=== PATIENT | female | born 1955 | race Caucasian/White ===

== ENCOUNTER 2022-11-04 13:26 | Outpatient (CLI) | payer BC, SELFPAY ==
--- NOTE | ~2022-11-04 | US_ITS ---
EXAMINATION: US abdomen complete DATE: 11/04/2022 15:08 INDICATION: Nausea and vomiting TECHNIQUE: Multiple grayscale and Doppler ultrasound images of the abdomen were obtained. COMPARISON: None available FINDINGS: The head and body of the pancreas are normal. The pancreatic tail is obscured by bowel gas. The liver is normal with normal echogenicity and echotexture. No surface nodularity. Normal hepatope wilfredo flow in the main portal vein. The gallbladder is contracted and not well evaluated. The mildly en larged common bile duct measures 8 mm. There was no sonographic Vila sign. The visualized portions of the aorta and inferior vena cava are normal. The spleen measures 9.3 cm. There are old healed granulomas of the spleen. The right kidney measures 12.1 x 6 x 4.4 cm. The left kidney measures 10.5 x 4.7 x 4 cm. The kidneys demonstrate normal parench ymal echogenicity. There is no hydronephrosis. IMPRESSION: 1. Mild enlargement of the common bile duct of unclear etiology. Recommend correlation with liver fun ction tests. Reviewed, dictated and finalized at location B. IMPRESSION: 1. Mild enlargement of the common bile duct of unclear etiology. Recommend rober elation with liver function tests.
--- NOTE | ~2022-11-04 | US_ITS ---
EXAMINATION: US pelvic limited DATE: 11/04/2022 15:48 INDICATION: TECHNIQUE: Multiple transabdominal sonographic images of the pelvis were obtained. COMPARISON: None. FINDINGS: The bladder is normal. No abnormal mass. Jets are seen from both ureters. IMPRESSION: 1. Normal bladder. Reviewed, dictated and finalized at location E. IMPRESSION: 1. Normal bladder.
[2022-11-04 14:19] LABS: Alanine Aminotransferase 46 U/L (6-35); Albumin Level 4.4 g/dL (3.5-5.1); Alkaline Phosphatase 77 U/L (38-126); Amylase 70 U/L (30-110); Anion Gap 6 mmol/L (8-16); Aspartate Amino Transferase 41 U/L (14-36); Bilirubin,Total 0.3 mg/dL (0.2-1.3); Blood Urea Nitrogen 11 mg/dL (7-17); Calcium 9.9 mg/dL (8.4-10.2); Carbon Dioxide 31 mmol/L (22-30); Chloride 101 mmol/L (98-107); Estimated Glomerular Filt Rate > 60; Glucose 108 mg/dL (65-110); Hemoglobin 13.4 g/dL (12.0-15.0); Immature Granulocyte Absolute 0.04 K/mm3 (0.00-0.031); Immature Granulocyte Percent A 0.7 % (0-0.5); Lipase 123 U/L (23-300); Lymphocytes Absolute Auto 1.43 K/mm3 (0.9-3.2); Lymphocytes Percent Auto 24.8 % (18.3-44.2); Mean Corpuscular HGB Conc 33.5 g/dl (32-36); Mean Corpuscular Hemoglobin 30.8 pg (26-34); Mean Platelet Volume 9.6 fl (7.4-10.4); Monocytes Absolute Auto 0.5 K/mm3 (0.1-0.6); Monocytes Percent Auto 8.8 % (2.6-8.5); Neutrophils Absolute Auto 3.8 K/mm3 (1.3-6.7); Neutrophils Percent Auto 65.7 % (45.5-73.1); Platelet Count Result 445 k/mm3 (150-375); Potassium 3.8 mmol/L (3.4-5.0); Red Blood Count 4.35 M/mm3 (4.2-5.4); Red Cell Distribution Width 12.3 % (11.5-14.5); Sodium 138 mmol/L (137-145); White Blood Count 5.8 K/mm3 (4.5-10.0)
[2022-11-04 14:24] LABS: Complement C3 128 mg/dL (88-165)
[2022-11-04 14:39] LABS: Hemoglobin A1C 5.1 % (<5.7)
[2022-11-04 14:49] LABS: Free T4 Free Thyroxine 1.06 ng/mL (0.78-2.19); Vitamin D 25 Hydroxy 44.1 ng/mL
[2022-11-04 15:01] LABS: Erythrocyte Sedimentation Rate 24 mm/hr (0-20)
[2022-11-04 17:08] LABS: Appearance Urine Clear (Clear); Bacteria Urine None Seen /hpf; Bilirubin Urine Negative (Negative); Blood Urine Negative (Negative); Color Urine Yellow (Yellow); Glucose Urine UA Negative (Negative); Ketones Urine Negative (Negative); Leukocyte Esterase Ur Trace LEU/UL (Negative); Need Manual Microscopic Reviewed; Nitrate Urine Negative (Negative); Non Pathogenic Casts 0-2; Protein Urine Negative (Negative); RBC Urine 0-2 /hpf (0-2); Specific Grav Ur 1.005 (1.001-1.035); Squamous Epithelial Cell Urine None seen /hpf (Few); Urobilinogen Urine 0.2 mg/dL (<2.0); WBC Urine 0-5 /hpf; pH Urine 6.5 (5.0-9.0)
[2022-11-04 17:10] LABS: Add Urine Microscopic? YES
[2022-11-06 19:20] LABS: Immunoglobulin A 126 mg/dL (70-320); Immunoglobulin G 680 mg/dL (600-1540); Immunoglobulin M 57 mg/dL (50-300)
[2022-11-07 17:22] LABS: Complement Total CH50 >60 U/mL (31-60)
== END 2022-11-04 13:27 | disposition home or self-care (01) ==
PROVIDERS: PCP Internal Medicine; Visit Provider Internal Medicine
DX: J32.9 Chronic sinusitis, unspecified (principal); J42 Unspecified chronic bronchitis; R50.9 Fever, unspecified; M62.81 Muscle weakness (generalized); R53.83 Other fatigue; Z13.29 Encounter for screening for other suspected endocrine disorder; Z79.899 Other long term (current) drug therapy; R11.2 Nausea with vomiting, unspecified; R19.7 Diarrhea, unspecified; J98.8 Other specified respiratory disorders; E55.9 Vitamin D deficiency, unspecified; Z13.1 Encounter for screening for diabetes mellitus; I10 Essential (primary) hypertension; N17.9 Acute kidney failure, unspecified; R10.9 Unspecified abdominal pain
CPT/HCPCS: 36415; 76700; 76857; 80053; 81001; 82150; 82306; 82784; 83036; 83690; 84439; 84443; 85025; 85652; 86038; 86140; 86160; 86162

== ENCOUNTER → 2022-11-07 07:39 | Outpatient (CLI) | payer BC, SELFPAY ==
--- NOTE | ~2022-11-07 | US_ITS ---
EXAMINATION: US retroperitoneal duplex ltd DATE: 11/07/2022 09:08 INDICATION: Acute kidney injury. Nausea with vomiting, unspecified. TECHNIQUE: Multiple grayscale, color Doppler, and pulsed Doppler images of the kidneys and renal faizan aparna were obtained. COMPARISON: Ultrasound 11/04/2022 FINDINGS: Right kidney measures 12.1 x 5.6 x 5.8 cm. Left kidney measures 9.6 x 4.4 x 5.0 cm. No hydronephrosis . Velocity measurements of the renal arteries are nondiagnostic. IMPRESSION: 1. Normal kidney sizes. No hydronephrosis. 2. Nondiagnostic evaluation of the renal arteries. Reviewed, dictated and finalized at location E.
== END ==
PROVIDERS: PCP Internal Medicine; Visit Provider Internal Medicine
DX: R11.2 Nausea with vomiting, unspecified (principal); N17.9 Acute kidney failure, unspecified; R53.83 Other fatigue
CPT/HCPCS: 93976

== ENCOUNTER 2022-12-03 13:56 | Outpatient (CLI) | payer BC, SELFPAY ==
--- NOTE | ~2022-12-03 | NM_ITS ---
EXAMINATION: NM hepatobiliary wo pharm DATE: 12/03/2022 16:18 INDICATION: Other specified diseases of gallbladder. COMPARISON: Ultrasound 11/04/2022 TECHNIQUE: 4.9 mCi Tc-99m mebrofenin (Choletec) was administered intravenously. Scintigraphic images of the abdomen were obtained for one hour. Then, the patient drank 8 oz Ensure, and imaging was cont inued for 60 minutes. FINDINGS: There is normal clearance of radiotracer from the blood pool. There is homogeneous tracer u ptake by the liver. Activity progresses to the bowel and gallbladder. Gallbladder ejection fraction (GBEF) was 49%. Note that with this technique, normal GBEF >= 33%. IMPRESSION: 1. Normal hepatobiliary scintigraphy. Reviewed, dictated and finalized at location A.
== END 2022-12-03 13:57 | disposition home or self-care (01) ==
LOC: ANHIMG 14:00
PROVIDERS: PCP Internal Medicine; Visit Provider Internal Medicine
DX: K82.8 Other specified diseases of gallbladder (principal); R11.2 Nausea with vomiting, unspecified
CPT/HCPCS: 78226; A9537

== ENCOUNTER 2022-12-08 14:40 | Outpatient (CLI) | payer BC, SELFPAY ==
--- NOTE | ~2022-12-08 | MR_ITS ---
EXAMINATION: MR MRCP wo/w con/w 3D wo ind DATE: 12/08/2022 16:19 INDICATION: Nausea with vomiting, unspecified. TECHNIQUE: Magnetic resonance imaging (MRI) of the abdomen was performed without and with 15 mL Multi Rufino intravenous contrast. Sequences included coronal T2-weighted FS FSE, coronal T2-weighted FSE, a xial T1-weighted LAVA, coronal FS FIESTA, axial dual-echo T1-weighted SPGR, coronal lava-FLEX, sagitt al T2-weighted FSE, axial T2-weighted FSE, and axial DWI. Thick-slab T2-weighted FSE images were obta ined for magnetic resonance cholangiopancreatography (MRCP). Maximum intensity projection 3-D reconst ructions of the volumetric data were created by the technologist. Postcontrast sequences included cor onal LAVA-flex and time course of axial T1-weighted LAVA. COMPARISON: Abdomen ultrasound 11/04/2022 FINDINGS: ABDOMEN MRI: Breast implants are noted. There is marked elevation of right hemidiaphragm. There is cy stic thickening of the fundus of the gallbladder, consistent with adenomyomatosis. There is sludge in the gallbladder. The liver, spleen, pancreas, adrenal glands, and kidneys are normal. There are no d ilated loops of bowel. There is a small sliding hiatal hernia. There is no ascites. There are no path ologically enlarged lymph nodes. ABDOMEN MRCP: The common duct is normal and measures 6 mm. No choledocholithiasis. IMPRESSION: 1. Small sliding hiatal hernia. Reviewed, dictated and finalized at location A.
== END 2022-12-08 14:41 | disposition home or self-care (01) ==
PROVIDERS: PCP Internal Medicine; Visit Provider Internal Medicine
DX: R11.2 Nausea with vomiting, unspecified (principal); K44.9 Diaphragmatic hernia without obstruction or gangrene
CPT/HCPCS: 74183; 76376; A9577

== ENCOUNTER 2023-03-04 15:48 | Outpatient (CLI) | payer BC, SELFPAY ==
--- NOTE | ~2023-03-04 | XR_ITS ---
EXAMINATION: XR chest 2V DATE: 03/04/2023 16:18 INDICATION: Cough. Shortness of breath. Chest pain. TECHNIQUE: Frontal and lateral views of the chest were obtained. COMPARISON: None. FINDINGS: There is marked elevation of right hemidiaphragm. There are airspace opacities at right jose g base, likely atelectasis. No pleural effusion or pneumothorax. The heart size is normal. There is a n electronic implant in left anterior chest wall. Breast implants are noted. There are old healed lef t rib fractures. IMPRESSION: 1. Marked elevation of right hemidiaphragm with mild atelectasis at right lung base. Reviewed, dictated and finalized at location E. DRY TECH
[2023-03-04 17:01] LABS: Basophils Percent Auto 0.2 % (0.2-1.2); Hematocrit 36.7 % (37.0-47.0); Hemoglobin 11.6 g/dL (12.0-15.0); Immature Granulocyte Absolute 0.01 K/mm3 (0.00-0.031); Immature Granulocyte Percent A 0.2 % (0-0.5); Lymphocytes Absolute Auto 1.19 K/mm3 (0.9-3.2); Lymphocytes Percent Auto 21.2 % (18.3-44.2); Mean Corpuscular HGB Conc 31.6 g/dl (32-36); Mean Corpuscular Hemoglobin 28.8 pg (26-34); Mean Corpuscular Volume 91.1 fl (80-100); Mean Platelet Volume 10.6 fl (7.4-10.4); Monocytes Absolute Auto 0.5 K/mm3 (0.1-0.6); Neutrophils Percent Auto 70.4 % (45.5-73.1); Platelet Count Result 316 k/mm3 (150-375); Red Blood Count 4.03 M/mm3 (4.2-5.4); White Blood Count 5.6 K/mm3 (4.5-10.0)
[2023-03-04 17:05] LABS: Anion Gap 9 mmol/L (8-16); Blood Urea Nitrogen 11 mg/dL (7-17); Calcium 9.9 mg/dL (8.4-10.2); Carbon Dioxide 25 mmol/L (22-30); Chloride 104 mmol/L (98-107); Estimated Glomerular Filt Rate > 60; Glucose 86 mg/dL (65-110); Potassium 3.4 mmol/L (3.4-5.0); Sodium 138 mmol/L (137-145)
[2023-03-11 01:33] LABS: S. pneumonia Serotype 12 (12F) 1.4; S. pneumonia Serotype 14 (14) 17.8; S. pneumonia Serotype 17 (17F) 10.6; S. pneumonia Serotype 18C (56) 3.3; S. pneumonia Serotype 19 (19F) 4.9; S. pneumonia Serotype 2 (2) 0.7; S. pneumonia Serotype 20 (20) 11.6; S. pneumonia Serotype 22 (22F) 1.9; S. pneumonia Serotype 23 (23F) 0.8; S. pneumonia Serotype 3 (3) 3.6; S. pneumonia Serotype 34 (10A) 3.6; S. pneumonia Serotype 4 (4) 0.7; S. pneumonia Serotype 43 (11A) 1.5; S. pneumonia Serotype 5 (5) 6.5; S. pneumonia Serotype 51 (7F) 2.8; S. pneumonia Serotype 57 (19A) 3.4; S. pneumonia Serotype 68 (9V) 3.1; S. pneumonia Serotype 6B (26) 2.2; S. pneumonia Serotype 70 (33F) 2.7; S. pneumonia Serotype 8 (8) 1.1; S. pneumonia Serotype 9 (9N) 2.6
== END 2023-03-04 15:49 | disposition home or self-care (01) ==
PROVIDERS: PCP Internal Medicine; Visit Provider Internal Medicine Nephrology
DX: D80.1 Nonfamilial hypogammaglobulinemia (principal); R05.9 Cough, unspecified; J18.9 Pneumonia, unspecified organism; Z86.16 Personal history of COVID-19; D80.2 Selective deficiency of immunoglobulin A [IgA]; D80.3 Selective deficiency of immunoglobulin G [IgG] subclasses; D80.4 Selective deficiency of immunoglobulin M [IgM]; J06.9 Acute upper respiratory infection, unspecified
CPT/HCPCS: 36415; 71046; 80048; 85025; 86317

== ENCOUNTER 2023-06-16 09:43 | Outpatient (CLI) | payer BC, SELFPAY ==
[2023-06-16 10:13] LABS: Hematocrit 36.4 % (37.0-47.0); Hemoglobin 11.9 g/dL (12.0-15.0); Mean Corpuscular HGB Conc 32.7 g/dl (32-36); Mean Corpuscular Hemoglobin 29.8 pg (26-34); Mean Corpuscular Volume 91.2 fl (80-100); Mean Platelet Volume 9.8 fl (7.4-10.4); Platelet Count Result 373 k/mm3 (150-375); Red Blood Count 3.99 M/mm3 (4.2-5.4); Red Cell Distribution Width 12.3 % (11.5-14.5); White Blood Count 6.7 K/mm3 (4.5-10.0)
[2023-06-16 10:17] LABS: Appearance Urine Clear (Clear); Bacteria Urine Rare /hpf; Bilirubin Urine Negative (Negative); Blood Urine Negative (Negative); Color Urine Yellow (Yellow); Glucose Urine UA Negative (Negative); Ketones Urine Negative (Negative); Leukocyte Esterase Ur 2+ LEU/UL (NEGATIVE); Nitrate Urine Negative (Negative); Non Pathogenic Casts 0-2; Protein Urine Negative (Negative); RBC Urine 0-2 /hpf (0-2); Specific Grav Ur 1.018 (1.001-1.035); Squamous Epithelial Cell Urine None seen /hpf (Few); Urobilinogen Urine 0.2 mg/dL (<2.0); WBC Urine 51-100 /hpf (0-3); pH Urine 5.5 (5.0-9.0)
[2023-06-16 10:24] LABS: Albumin Level 4.3 g/dL (3.5-5.1); Anion Gap 8 mmol/L (8-16); Blood Urea Nitrogen 18 mg/dL (7-17); Calcium 9.9 mg/dL (8.4-10.2); Carbon Dioxide 25 mmol/L (22-30); Chloride 105 mmol/L (98-107); Creatine Kinase 61 U/L (30-135); Estimated Glomerular Filt Rate > 60; Glucose 102 mg/dL (65-110); Phosphorus 4.3 mg/dL (2.5-4.5); Potassium 3.6 mmol/L (3.4-5.0); Sodium 138 mmol/L (137-145)
[2023-06-16 10:25] LABS: Add Urine Microscopic? YES
[2023-06-16 10:33] LABS: Creatinine Urine 100.7 mg/dL; Total Protein Urine Random 8 mg/dL; Ur Ttl Prot Creatinine Ratio 0.08 mg/mg (0-0.20)
[2023-06-16 10:37] LABS: Erythrocyte Sedimentation Rate 24 mm/hr (0-20)
[2023-06-16 10:47] LABS: Complement C3 119 mg/dL (88-165); Rheumatoid Factor < 12.0 IU/ML (<12)
[2023-06-16 11:01] LABS: Cortisol Random 5.66 ug/dL
[2023-06-18 10:58] LABS: Kappa\\Lambda Light Chains 0.81 (0.26-1.65); Lambda Light Chain 12.6 mg/L (5.7-26.3)
[2023-06-18 14:18] LABS: ANCA Screen Negative (Negative)
[2023-06-19 10:58] LABS: Anti Glomerular Basement Memb <1.0 AI (<1.0)
[2023-06-19 16:48] LABS: Complement Total CH50 63 U/mL (31-60)
[2023-06-21 08:40] LABS: SM Antibody <1.0; SM/RNP Antibody <1.0; SS-A <1.0; SS-B <1.0
== END 2023-06-16 09:44 | disposition home or self-care (01) ==
LOC: ANHLAB 09:45
PROVIDERS: PCP Internal Medicine; Visit Provider Internal Medicine Nephrology
DX: N17.9 Acute kidney failure, unspecified (principal); R53.83 Other fatigue; R11.2 Nausea with vomiting, unspecified; R19.7 Diarrhea, unspecified
CPT/HCPCS: 36415; 80069; 81001; 82533; 82550; 82570; 83520; 83883; 84156; 85027; 85652; 86036; 86038; 86160; 86162; 86225; 86235; 86430

== ENCOUNTER 2023-06-18 11:49 | Outpatient (CLI) | payer BC, SELFPAY ==
[2023-06-22 12:31] LABS: Creat 24 Hr 1.17 g/24 h (0.50-2.15); Pro/Creat Ratio 102 mg/g creat (<150); Pro/Creat Ratio mg/mg 0.102 (<0.150); Protein,total, 24 Hr Ur 120 mg/24 h (<150)
== END 2023-06-18 11:50 | disposition home or self-care (01) ==
LOC: ANHLAB 11:52
PROVIDERS: PCP Internal Medicine; Visit Provider Internal Medicine Nephrology
DX: N17.9 Acute kidney failure, unspecified (principal); R53.83 Other fatigue; R11.2 Nausea with vomiting, unspecified; R19.7 Diarrhea, unspecified
CPT/HCPCS: 86335

== ENCOUNTER 2023-07-01 15:41 | Outpatient (CLI) | payer BC, SELFPAY ==
[2023-07-01 16:20] LABS: Basophils Percent Auto 0.3 % (0.2-1.2); Eosinophils Percent Auto 0.6 % (0-4.4); Hematocrit 38.3 % (37.0-47.0); Hemoglobin 12.8 g/dL (12.0-15.0); Immature Granulocyte Absolute 0.01 K/mm3 (0.00-0.031); Immature Granulocyte Percent A 0.1 % (0-0.5); Lymphocytes Absolute Auto 1.44 K/mm3 (0.9-3.2); Lymphocytes Percent Auto 21.1 % (18.3-44.2); Mean Corpuscular HGB Conc 33.4 g/dl (32-36); Mean Corpuscular Hemoglobin 30.4 pg (26-34); Mean Platelet Volume 9.8 fl (7.4-10.4); Monocytes Absolute Auto 0.6 K/mm3 (0.1-0.6); Monocytes Percent Auto 9.1 % (2.6-8.5); Neutrophils Absolute Auto 4.7 K/mm3 (1.3-6.7); Neutrophils Percent Auto 68.8 % (45.5-73.1); Platelet Count Result 375 k/mm3 (150-375); Red Blood Count 4.21 M/mm3 (4.2-5.4); Red Cell Distribution Width 12.5 % (11.5-14.5); White Blood Count 6.8 K/mm3 (4.5-10.0)
[2023-07-01 16:50] LABS: Erythrocyte Sedimentation Rate 29 mm/hr (0-20)
[2023-07-01 18:49] LABS: Iron 48 ug/dL (37-170)
[2023-07-01 18:51] LABS: Alanine Aminotransferase 34 U/L (6-35); Albumin Level 4.3 g/dL (3.5-5.1); Alkaline Phosphatase 79 U/L (38-126); Anion Gap 8 mmol/L (8-16); Aspartate Amino Transferase 37 U/L (14-36); Bilirubin,Total 0.3 mg/dL (0.2-1.3); Blood Urea Nitrogen 19 mg/dL (7-17); CRP 0.6 mg/dL (<1.0); Calcium 10.1 mg/dL (8.4-10.2); Carbon Dioxide 29 mmol/L (22-30); Chloride 100 mmol/L (98-107); Estimated Glomerular Filt Rate > 60; Glucose 98 mg/dL (65-110); Potassium 3.5 mmol/L (3.4-5.0); Sodium 137 mmol/L (137-145)
[2023-07-01 19:01] LABS: Percent Iron Saturation 13 % (20-50)
[2023-07-01 19:09] LABS: Free T4 Free Thyroxine 1.11 ng/mL (0.78-2.19)
[2023-07-01 20:08] LABS: Folic Acid > 20.0 ng/mL (2.76->20)
[2023-07-05 08:59] LABS: GGT 15 U/L (3-65)
== END 2023-07-01 15:42 | disposition home or self-care (01) ==
LOC: ANHLAB 15:43
PROVIDERS: PCP Internal Medicine; Visit Provider Internal Medicine
DX: R53.83 Other fatigue (principal)
CPT/HCPCS: 36415; 80053; 82607; 82728; 82746; 82977; 83540; 83550; 84439; 84443; 85025; 85652; 86140

== ENCOUNTER 2023-07-14 16:16 | Outpatient (CLI) | payer BC, SELFPAY ==
[2023-07-14 16:56] LABS: Add Urine Microscopic? YES; Appearance Urine Clear (Clear); Bacteria Urine None Seen /hpf; Bilirubin Urine Negative (Negative); Blood Urine Negative (Negative); Color Urine Yellow (Yellow); Glucose Urine UA Negative (Negative); Ketones Urine Negative (Negative); Leukocyte Esterase Ur 1+ LEU/UL (Negative); Need Manual Microscopic Reviewed; Nitrate Urine Negative (Negative); Non Pathogenic Casts 0-2; Protein Urine Negative (Negative); RBC Urine 0-2 /hpf (0-2); Specific Grav Ur 1.016 (1.001-1.035); Squamous Epithelial Cell Urine None Seen /hpf (Few); Urobilinogen Urine 0.2 mg/dL (<2.0); WBC Urine 0-5 /hpf (0-3); pH Urine 5.5 (5.0-9.0)
[2023-07-14 17:08] LABS: Creatinine Urine 68.7 mg/dL; Total Protein Urine Random 9 mg/dL; Ur Ttl Prot Creatinine Ratio 0.13 mg/mg (0-0.20)
== END 2023-07-14 16:17 | disposition home or self-care (01) ==
LOC: ANHLAB 16:17
PROVIDERS: PCP Internal Medicine; Visit Provider Internal Medicine Nephrology
DX: R82.81 Pyuria (principal)
CPT/HCPCS: 82570; 84156; 87077; 87086; 87088; 87186

== ENCOUNTER 2023-08-17 07:51 | Outpatient (CLI) | payer BC, SELFPAY ==
--- NOTE | ~2023-08-17 | XR_ITS ---
XR chest 2V 08/17/2023 09:16 Indication: Chest pain Procedure: 2 view chest Comparison: 03/04/2023 Findings: Chronic elevation the right diaphragm with right basilar atelectasis. No acute focal pneumo monet, edema, pleural effusion or pneumothorax. There is asymmetric density in the right apex. Correlat ion with chest CT recommended to exclude underlying parenchymal abnormality. Impression: 1: New asymmetry of the right apex. Correlation with CT chest recommended. Reviewed, dictated and finalized at location B. Impression: 1: New asymmetry of the right apex. Correlation with CT chest recommended.
[2023-08-17 08:45] LABS: Influenza A QL RT-PCR Negative (Negative); Influenza B QL RT-PCR Negative (Negative); RSV RNA, RT-PCR Negative (Negative); SARS-CoV-2 RNA PCR Negative (Negative)
[2023-08-17 08:54] LABS: Basophils Percent Auto 0.2 % (0.2-1.2); Eosinophils Percent Auto 0.1 % (0-4.4); Hematocrit 40.6 % (37.0-47.0); Hemoglobin 13.2 g/dL (12.0-15.0); Immature Granulocyte Absolute 0.04 K/mm3 (0.00-0.031); Immature Granulocyte Percent A 0.3 % (0-0.5); Lymphocytes Absolute Auto 1.44 K/mm3 (0.9-3.2); Lymphocytes Percent Auto 11.3 % (18.3-44.2); Mean Corpuscular HGB Conc 32.5 g/dl (32-36); Mean Corpuscular Volume 92.3 fl (80-100); Mean Platelet Volume 10.4 fl (7.4-10.4); Monocytes Absolute Auto 0.9 K/mm3 (0.1-0.6); Monocytes Percent Auto 6.7 % (2.6-8.5); Neutrophils Absolute Auto 10.4 K/mm3 (1.3-6.7); Neutrophils Percent Auto 81.4 % (45.5-73.1); Platelet Count Result 361 k/mm3 (150-375); Red Cell Distribution Width 13.1 % (11.5-14.5); White Blood Count 12.8 K/mm3 (4.5-10.0)
== END 2023-08-17 07:52 | disposition home or self-care (01) ==
LOC: ANHLAB 07:53
PROVIDERS: PCP Internal Medicine; Visit Provider Internal Medicine
DX: R50.9 Fever, unspecified (principal); R05.9 Cough, unspecified
CPT/HCPCS: 36415; 71046; 85025; 87637

== ENCOUNTER 2023-08-17 14:52 | Outpatient (CLI) | payer BC, SELFPAY ==
--- NOTE | ~2023-08-17 | CT_ITS ---
EXAMINATION: CT diagnostic chest w con DATE: 08/17/2023 15:27 INDICATION: R93.89 - Abnormal findings on diagnostic imaging of other... TECHNIQUE: Computed tomography (CT) of the chest was performed with 100 mL Omnipaque-350 intravenous contrast. Additional 3D reconstructions utilizing coronal maximum intensity projection (MIP) were per formed. Automated exposure control and iterative reconstruction technique were employed. The dose-maik gth product was 263.40 mGy-cm. COMPARISON: Radiograph dated 08/17/2023 FINDINGS: Patchy region of consolidation and groundglass opacity at the posterior aspect of the apical segment of the right upper lobe without evident mass or architectural distortion which is suspicious for pneu monia. There is both basilar atelectasis along the elevated right hemidiaphragm as well as discoid at electasis in the anterior basilar segment of the right lower lobe. Calcified nodules within the right lower lobar basilar atelectasis along with calcified right hilar and mediastinal lymph nodes and a f ew splenic calcifications, all consistent with old granulomatous disease. Left lung remains clear. No pulmonary edema, pleural effusion or pneumothorax. Heart size is normal. Small amount of atheroscler otic coronary artery calcification. Dense mitral annular calcification. No pericardial effusion. Thor acic aorta is normal in caliber with no dissection. No pathologically enlarged thoracic lymphadenopat hy. Bilateral breast implants. Linear metallic implant in the subcutaneous fat at the upper outer luiz drant of the left breast. Small sliding-type hiatal hernia. Moderate thoracic and severe lower cervic al spondylosis. There are a couple subacute healing nondisplaced fractures of the lateral left eighth and ninth ribs. IMPRESSION: 1. Patchy groundglass opacity and consolidation at the apical segment of the right upper lobe consist ent with pneumonia. 2. Elevation the right hemidiaphragm with right basilar and lower lobe atelectasis. 2. Small sliding-type hiatal hernia. 4. Subacute healing nondisplaced lateral left eighth and ninth rib fractures. Reviewed, dictated and finalized at location A. IMPRESSION: 1. Patchy groundglass opacity and consolidation at the apical segment of the ri ght upper lobe consistent with pneumonia. 2. Elevation the right hemidiaphragm with right basilar and lower lobe atelecta sis. 2. Small sliding-type hiatal hernia. 4. Subacute healing nondisplaced lateral left eighth and ninth rib fractures.
[2023-08-17 15:26] LABS: Estimated Glomerular Filt Rate > 60
== END 2023-08-17 14:53 | disposition home or self-care (01) ==
PROVIDERS: PCP Internal Medicine; Visit Provider Internal Medicine
DX: R50.9 Fever, unspecified (principal); R93.89 Abnormal findings on diagnostic imaging of other specified body structures; K44.9 Diaphragmatic hernia without obstruction or gangrene
CPT/HCPCS: 36415; 71046; 71260; 85025; 87637; Q9967

== ENCOUNTER 2023-11-12 14:39 | Outpatient (CLI) | payer BC, SELFPAY ==
[2023-11-12 15:01] LABS: Basophils Percent Auto 0.5 % (0.2-1.2); Eosinophils Percent Auto 0.2 % (0-4.4); Immature Granulocyte Absolute 0.02 K/mm3 (0.00-0.031); Immature Granulocyte Percent A 0.3 % (0-0.5); Lymphocytes Absolute Auto 1.58 K/mm3 (0.9-3.2); Mean Corpuscular HGB Conc 34.1 g/dl (32-36); Mean Corpuscular Hemoglobin 30.9 pg (26-34); Mean Corpuscular Volume 90.5 fl (80-100); Monocytes Absolute Auto 0.6 K/mm3 (0.1-0.6); Monocytes Percent Auto 9.7 % (2.6-8.5); Neutrophils Absolute Auto 4.3 K/mm3 (1.3-6.7); Neutrophils Percent Auto 65.3 % (45.5-73.1); Platelet Count Result 341 k/mm3 (150-375); Red Blood Count 4.53 M/mm3 (4.2-5.4); Red Cell Distribution Width 13.2 % (11.5-14.5); White Blood Count 6.6 K/mm3 (4.5-10.0)
[2023-11-12 15:11] LABS: Alanine Aminotransferase 42 U/L (6-35); Albumin Level 4.8 g/dL (3.5-5.1); Alkaline Phosphatase 73 U/L (38-126); Anion Gap 12 mmol/L (4-12); Aspartate Amino Transferase 41 U/L (14-36); Bilirubin,Total 0.6 mg/dL (0.2-1.3); Blood Urea Nitrogen 14 mg/dL (7-17); Calcium 10.4 mg/dL (8.4-10.2); Carbon Dioxide 25 mmol/L (22-30); Chloride 99 mmol/L (98-107); Cholesterol 157 mg/dL (0-200); Estimated Glomerular Filt Rate 55; Glucose 88 mg/dL (65-110); HDL Direct 68 mg/dL; Magnesium 1.9 mg/dL (1.6-2.3); Sodium 136 mmol/L (137-145); Triglycerides 98 mg/dL (<150)
[2023-11-12 15:22] LABS: LDL Cholesterol Direct 64 mg/dL
[2023-11-12 15:33] LABS: Hemoglobin A1C 5.3 % (<5.7)
[2023-11-12 15:55] LABS: Free T4 Free Thyroxine 1.44 ng/mL (0.78-2.19)
== END 2023-11-12 14:40 | disposition home or self-care (01) ==
PROVIDERS: PCP Internal Medicine; Visit Provider Internal Medicine
DX: I10 Essential (primary) hypertension (principal); Z13.220 Encounter for screening for lipoid disorders; Z79.899 Other long term (current) drug therapy; Z13.1 Encounter for screening for diabetes mellitus; Z13.29 Encounter for screening for other suspected endocrine disorder; E87.6 Hypokalemia
CPT/HCPCS: 36415; 80053; 80061; 83036; 83735; 84439; 84443; 85025

== ENCOUNTER 2024-03-13 08:03 | Outpatient (CLI) | payer MEDICARE, SELFPAY ==
--- NOTE | ~2024-03-13 | CT_ITS ---
EXAMINATION: CT abdomen pelvis w con DATE: 03/13/2024 08:59 INDICATION: Nausea and vomiting. TECHNIQUE: Computed tomography (CT) of the abdomen and pelvis was performed with 100 mL Omnipaque 350 intravenous contrast. Automated exposure control and iterative reconstruction technique were employe d. The dose-length product was 799.65 mGy-cm. COMPARISON: Chest CT 08/17/2023, abdomen MRI 12/08/2022 FINDINGS: There is elevation of right hemidiaphragm. There is mild atelectasis in the lungs bilateral ly. Calcified right lung nodules and calcified right hilar and mediastinal lymph nodes are consistent with old granulomatous disease. No pleural effusion. There are bilateral breast implants. There is l eft atrial enlargement. There are coronary artery calcifications. No pericardial effusion. There is a moderate-sized sliding hiatal hernia. Calcifications in the liver and spleen are consistent with old granulomatous disease. The gallbladder, pancreas, and adrenal glands are normal. There is cortical t hinning of the kidneys. There are no dilated loops of bowel. The appendix is normal. There are no pat hologically enlarged lymph nodes. There is no free intraperitoneal fluid. There are old healed left r ib fractures. There is moderate thoracic spondylosis and severe lumbar spondylosis. IMPRESSION: 1. Moderate-sized sliding hiatal hernia. Reviewed, dictated and finalized at location A. 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
[2024-03-13 08:42] LABS: Estimated Glomerular Filt Rate 55
== END 2024-03-13 08:04 | disposition home or self-care (01) ==
PROVIDERS: PCP Internal Medicine; Visit Provider Internal Medicine
DX: R11.2 Nausea with vomiting, unspecified (principal); K59.00 Constipation, unspecified; R10.9 Unspecified abdominal pain; K44.9 Diaphragmatic hernia without obstruction or gangrene
CPT/HCPCS: 74177; Q9967

== ENCOUNTER 2024-04-06 08:22 | Outpatient (CLI) | payer MEDICARE, SELFPAY ==
--- NOTE | ~2024-04-06 | MM_ITS ---
EXAMINATION: MM scrn jose d implant BI w alondra HISTORY: Screening mammogram TECHNIQUE: Craniocaudal and mediolateral oblique 3-D tomosynthesis images with implant displacement a nd synthetic 2-D images were generated. Craniocaudal and mediolateral oblique views of the breasts wi thout implant displacement were obtained using full field digital mammography. CAD analysis was submi tted and interpreted. COMPARISON: No prior mammogram is available for comparison at this institution. BREAST PARENCHYMAL COMPOSITION: Dense: The breasts are heterogeneously dense, which may obscure small masses FINDINGS: There are nodular asymmetries centered in the upper outer quadrant of the left breast. No m ammographic evidence for malignancy in the right breast. IMPRESSION: 1. Nodular left breast asymmetries in the upper outer quadrant. 2. Additional mammographic views and possible breast ultrasound are recommended. BI-RADS Category 0: Incomplete: Needs additional imaging evaluation. Reviewed, dictated and finalized at location B. 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 Nodular left breast asymmetries in the upper outer quadrant. 2. Additional mammographic views and possible breast ultrasound are recommended . BI-RADS Category 0: Incomplete: Needs additional imaging evaluation.
== END 2024-04-06 08:23 | disposition home or self-care (01) ==
PROVIDERS: PCP Internal Medicine; Visit Provider Internal Medicine
DX: Z12.31 Encounter for screening mammogram for malignant neoplasm of breast (principal); R92.8 Other abnormal and inconclusive findings on diagnostic imaging of breast
CPT/HCPCS: 77063; 77067

== ENCOUNTER 2024-04-24 10:51 | Outpatient (CLI) | payer MEDICARE, SELFPAY ==
--- NOTE | ~2024-04-24 | MM_ITS ---
EXAMINATION: MM diag jose d implant LT w alondra HISTORY: Nodular asymmetry left breast TECHNIQUE: Additional 3-D tomosynthesis images of the left breast were performed and synthetic 2-D im ages were generated. CAD analysis was submitted and interpreted. COMPARISON: 04/06/2024 BREAST PARENCHYMAL COMPOSITION:Dense: The breasts are heterogeneously dense, which may obscure small masses. FINDINGS: Nodular asymmetries efface with spot compression. No definite persistent mass lesion or dis tortion seen. No suspicious microcalcification. IMPRESSION: No mammographic evidence for malignancy. BI-RADS Category 1: Negative Reviewed, dictated and finalized at location . RY CELLAR HAND
== END 2024-04-24 10:52 | disposition home or self-care (01) ==
PROVIDERS: PCP Internal Medicine; Visit Provider Internal Medicine
DX: R92.8 Other abnormal and inconclusive findings on diagnostic imaging of breast (principal)
CPT/HCPCS: 77061; 77065; G0279

== ENCOUNTER 2024-05-18 08:19 | Outpatient (CLI) | payer MEDICARE, SELFPAY ==
[2024-05-18 08:56] LABS: Basophils Percent Auto 0.2 % (0.2-1.2); Eosinophils Percent Auto 0.8 % (0-4.4); Hemoglobin 12.3 g/dL (12.0-15.0); Immature Granulocyte Absolute 0.02 K/mm3 (0.00-0.031); Immature Granulocyte Percent A 0.4 % (0-0.5); Lymphocytes Absolute Auto 1.18 K/mm3 (0.9-3.2); Mean Corpuscular HGB Conc 34.2 g/dl (32-36); Mean Corpuscular Hemoglobin 32.1 pg (26-34); Mean Platelet Volume 10.4 fl (7.4-10.4); Monocytes Absolute Auto 0.4 K/mm3 (0.1-0.6); Monocytes Percent Auto 9.3 % (2.6-8.5); Neutrophils Percent Auto 64.3 % (45.5-73.1); Platelet Count Result 289 k/mm3 (150-375); Red Blood Count 3.83 M/mm3 (4.2-5.4); Red Cell Distribution Width 12.4 % (11.5-14.5); White Blood Count 4.7 K/mm3 (4.5-10.0)
[2024-05-18 09:00] LABS: Add Urine Microscopic? YES; Appearance Urine Clear (Clear); Bacteria Urine None Seen /hpf; Bilirubin Urine Negative (Negative); Blood Urine Negative (Negative); Color Urine Yellow (Yellow); Glucose Urine UA Negative (Negative); Ketones Urine Negative (Negative); Leukocyte Esterase Ur Trace LEU/UL (Negative); Nitrate Urine Negative (Negative); Non Pathogenic Casts 0-2; Protein Urine Negative (Negative); RBC Urine 0-2 /hpf (0-2); Specific Grav Ur 1.018 (1.001-1.035); Squamous Epithelial Cell Urine None Seen /hpf (Few); Urobilinogen Urine 0.2 mg/dL (<2.0); WBC Urine 0-5 /hpf (0-3)
[2024-05-18 09:05] LABS: Alanine Aminotransferase 53 U/L (6-35); Albumin Level 4.1 g/dL (3.5-5.1); Alkaline Phosphatase 66 U/L (38-126); Anion Gap 9 mmol/L (4-12); Aspartate Amino Transferase 38 U/L (14-36); Bilirubin,Total 0.4 mg/dL (0.2-1.3); Blood Urea Nitrogen 14 mg/dL (7-17); CRP < 0.5 mg/dL (<1.0); Calcium 9.5 mg/dL (8.4-10.2); Carbon Dioxide 27 mmol/L (22-30); Chloride 103 mmol/L (98-107); Cholesterol 128 mg/dL (0-200); Estimated Glomerular Filt Rate > 60; Glucose 110 mg/dL (65-110); HDL Direct 51 mg/dL; Potassium 4.2 mmol/L (3.4-5.0); Sodium 139 mmol/L (137-145); Triglycerides 103 mg/dL (<150)
[2024-05-18 09:13] LABS: LDL Cholesterol Direct 57 mg/dL
[2024-05-18 09:17] LABS: Free T4 Free Thyroxine 1.22 ng/dL (0.78-2.19)
[2024-05-18 09:31] LABS: Cortisol Random 8.06 ug/dL
[2024-05-18 09:42] LABS: Erythrocyte Sedimentation Rate 17 mm/hr (0-20)
== END 2024-05-18 08:20 | disposition home or self-care (01) ==
LOC: ANHLAB 08:24
PROVIDERS: PCP Internal Medicine; Visit Provider Internal Medicine
DX: E78.5 Hyperlipidemia, unspecified (principal); I10 Essential (primary) hypertension; Z79.899 Other long term (current) drug therapy; Z13.29 Encounter for screening for other suspected endocrine disorder; R53.83 Other fatigue; R53.1 Weakness; R11.2 Nausea with vomiting, unspecified; R61 Generalized hyperhidrosis; Z68.33 Body mass index [BMI] 33.0-33.9, adult
CPT/HCPCS: 36415; 80053; 80061; 81001; 82172; 82384; 82533; 82570; 83835; 84439; 84443; 85025; 85652; 86140

== ENCOUNTER 2024-06-08 13:47 | Outpatient (CLI) | payer MEDICARE, SELFPAY ==
--- OUTSIDE RECORDS SUMMARY | 2024-06-08 13:52 | XMS_ITS | Patient Health Summary ---
Author Organization [facility] Address [address] [place] [address] Care Team Providers Care Turkey Roll Maker Name Role Phone Jose Juan Gonzalez MD Primary Care Provider [phone] Note from [facility],non-owned Affiliates and Associated Physician Practices is amultiple site organization consisting of ambulatory clinics and hospital sitesin [place], [place] and [place]. This disclosure is being madepursuant to the Care Everywhere program and may not contain all information available regarding this patient. Last updated 18.[employer] Allergies No known active allergies Medications * Be aware that medications may not be up to date on this document. Alwaysverify current medications with the patient. * vitamin D3 (Cholecalciferol) 25 MCG (1000 UNITS) tablet Take 1 (one) tablet by mouth every evening * rosuvastatin (Crestor) 10 MG tablet(Started 01/10/2023) Take 1 (one) tablet by mouth once daily 2 refills by 01/10/2024 * hydrALAZINE (Apresoline) 100 MG tablet(Started 01/07/2023) Take 1 (one) tablet by mouth 3 times daily * losartan (Cozaar) 100 MG tablet(Started 12/08/2022) Take 1 (one) tablet by mouth once daily * zolpidem (Ambien) 10 MG tablet(Started 02/15/2023) Take 1 (one) tablet by mouth nightly as needed for Insomnia * hydroCHLOROthiazide (Hydrodiuril) 25 MG tablet(Started 05/01/2023) 0.5 (one-half) tablet * Zepbound 2.5 MG/0.5ML injection(Started 07/27/2023) ADMINISTER 2.5 MG UNDER THE SKIN WEEKLY FOR 4 WEEKS * metoprolol succinate XL 24hr (Toprol XL) 100 MG tablet(Started 12/01/2023) Take 1 (one) tablet by mouth once daily 3 refills by 11/30/2024 * apixaban (Eliquis) 5 MG tablet(Started 12/24/2023) Take 1 (one) tablet by mouth 2 times daily Reasons: Cerebrovascular accident secondary to Atrial Fibrillation 5 refills by 12/23/2024 * cetirizine (ZyrTEC) 10 MG tablet Take 1 (one) tablet by mouth once daily * ondansetron, disintegrating, (Zofran ODT) 8 MG tablet(Started 01/05/2024) Take 1 (one) tablet by mouth every 8 hours as needed * promethazine (Phenergan) 25 MG tablet Take 1 (one) tablet by mouth 3 times daily as needed Active Problems Problem Noted Date Diagnosed Date Sinus tachycardia 01/23/2024 Cerebrovascular accident (CVA), unspecified [facility] anism 01/08/2023 Social History Tobacco Use Types Packs/Day Years Used Date Smoking Tobacco: Never Smokeless Tobacco: Never Tobacco Cessation:Counseling Given: Not Answered Overall Financial Resource Strain (CARDIA) Answe r Date Recorded How hard is it for you to pa y for the very basics like food, housing, medical care, and heating? Not hard at all 01/09/2023 [facility] - Occupational Stress Questionnaire Answer Date Recorded Do you feel stress - tense, restless, nervous, or anxious, or unable to sleep at night because your mind is troubled all the time - these days? Not at all 01/09/2023 Hunger Vital Sign Answer Date Recorded Within the past 12 months, y ou worried that your food would run out before you got the money to buy more. Never true 01/10/20 23 Within the past 12 months, t he food you bought just didn't last and you didn't have money to get more. Never true 01/09/2023 PRAPARE - Transportation Answer Date Re corded In the past 12 months, has l ack of transportation kept you from medical appointments or from getting medications? No 12/25 In the past 12 months, has l ack of transportation kept you from meetings, work, or from getting things needed for daily living? No 01/09/2023 Housing Stability Vital Sign Answer Lester e Recorded In the last 12 months, was t here a time when you were not able to pay the mortgage or rent on time? No 01/09/2023 In the last 12 months, how many places have you lived? 1 01/09/2023 In the last 12 months, was t here a time when you did not have a steady place to sleep or slept in a [place] [facility] (including now)? No 01/09/2023 Sex and Gender Information Value Date Recorded Sex Assigned at Not on file Gender Identity Not on file Sexual Orientation Not on file Last Filed Vital Signs Vital Sign Reading Time Taken Comments Blood Pressure 124/72 02/15/2024 1:12 PM CDT Pulse 81 02/15/2024 1:12 PM CDT Temperature 36.7 C (98 F) 01/10/2023 10:54 AM CDT Respiratory Rate 18 02/15/2024 1:12 PM CDT Oxygen Saturation 96% 02/15/2024 1:12 PM CDT Inhaled Oxygen Concentration - - Weight 79.4 kg (175 lb) 02/15/2024 1:12 PM CDT Height 157.5 cm (5' 2 ) 02/15/2024 1:12 PM CDT Body Mass Index 32.01 02/15/2024 1:12 PM CDT Medical Devices Implanted Type Area Cuff Setter Lockstitch Device Identifier Shelf Expiration Date Model / Serial / Lot Sys Crd Mntr Rvl Linq Ii Implanted:Qty: 1 on 01/10/2023 by Candie Villalobos MD at [facility] [id number] 04/03/2024 LNQ2 2SYS / [id number] / NA Procedures * ILR CLINIC CHECK(Performed 06/08/2024) Performed for Cerebrovascular accident (CVA), unspecified mechanism (HCC), Encounter for loop recorder check * ILR CLINIC CHECK(Performed 05/09/2024) Performed for Cerebrovascular accident (CVA), unspecified mechanism (HCC), Encounter for loop recorder check * ILR CLINIC CHECK(Performed 02/29/2024) Performed for Cerebrovascular accident (CVA), unspecified mechanism (HCC), Encounter for loop recorder check * CT CARDIAC ANGIO W DARIA EVAL(Performed 01/25/2024) Performed for Palpitations, Chest pain, unspecified type * CREATININE - POCT INTERFACED(Performed 01/25/2024) * ILR CLINIC CHECK(Performed 01/24/2024) Performed for Cerebrovascular accident (CVA), unspecified mechanism (HCC), Encounter for loop recorder check * ILR CLINIC CHECK(Performed 12/17/2023) Performed for Cerebrovascular accident (CVA), unspecified mechanism (HCC), Encounter for loop recorder check * CARDIAC EVENT MONITOR ORDER(Performed 12/01/2023) * ILR CLINIC CHECK(Performed 11/11/2023) Performed for Cerebrovascular accident (CVA), unspecified mechanism (HCC), Encounter for loop recorder check * ILR CLINIC CHECK(Performed 10/07/2023) Performed for Cerebrovascular accident (CVA), unspecified mechanism (HCC), Encounter for loop recorder check * ILR CLINIC CHECK(Performed 09/05/2023) Performed for Cerebrovascular accident (CVA), unspecified mechanism (HCC), Encounter for loop recorder check * ILR CLINIC CHECK(Performed 07/27/2023) Performed for Cerebrovascular accident (CVA), unspecified mechanism (HCC), Encounter for loop recorder check * ILR CLINIC CHECK(Performed 06/21/2023) Performed for Cerebrovascular accident (CVA), unspecified mechanism (HCC), Encounter for loop recorder check * ILR CLINIC CHECK(Performed 05/19/2023) Performed for Cerebrovascular accident (CVA), unspecified mechanism (HCC), Encounter for loop recorder check * ILR CLINIC CHECK(Performed 04/20/2023) Performed for Cerebrovascular accident (CVA), unspecified mechanism (HCC), Encounter for loop recorder check * ILR CLINIC CHECK(Performed 03/19/2023) Performed for Cerebrovascular accident (CVA), unspecified mechanism (HCC), Encounter for loop recorder check * NM MYOCARD PERF REST STRESS(Performed 03/03/2023) Performed for Cerebrovascular accident (CVA), unspecified mechanism (HCC), Encounter for loop recorder check, Chest pain, unspecified type * STRESS TEST(Performed 03/03/2023) Performed for Cerebrovascular accident (CVA), unspecified mechanism (HCC), Encounter for loop recorder check, Chest pain, unspecified type * ILR CLINIC CHECK(Performed 02/16/2023) Performed for Cerebrovascular accident (CVA), unspecified mechanism (HCC), Encounter for loop recorder check * CCL LOOP RECORDER IMPLANT(Performed 01/10/2023) Performed for Cerebrovascular accident (CVA), unspecified mechanism (HCC) * CBC W AUTO DIFFERENTIAL(Performed 01/10/2023) * BASIC METABOLIC PANEL (CALCIUM TOTAL)(Performed 01/10/2023) * ECHO COMPLETE(Performed 01/09/2023) Performed for Cerebrovascular accident (CVA), unspecified mechanism (HCC) * GLUCOSE - POINT OF CARE(Performed 01/09/2023) * FACTOR VIII ASSAY SLH(Performed 01/09/2023) Performed for Cerebrovascular accident (CVA), unspecified mechanism (HCC) * TSH REFLEX FREE T4(Performed 01/09/2023) Performed for Cerebrovascular accident (CVA), unspecified mechanism (HCC) * FACTOR V LEIDEN MUTATION PANEL(Performed 01/09/2023) Performed for Cerebrovascular accident (CVA), unspecified mechanism (HCC) * ANTITHROMBIN III ACTIVITY(Performed 01/09/2023) Performed for Cerebrovascular accident (CVA), unspecified mechanism (HCC) * PROTHROMBIN [id number] PANEL(Performed 01/09/2023) Performed for Cerebrovascular accident (CVA), unspecified mechanism (HCC) * PHOSPHOLIPID ANTIBODY IGG/IGA/IGM PANEL(Performed 01/09/2023) Performed for Cerebrovascular accident (CVA), unspecified mechanism (HCC) * CARDIOLIPIN ANTIBODY IGG/IGM PANEL(Performed 01/09/2023) Performed for Cerebrovascular accident (CVA), unspecified mechanism (HCC) * BETA-2 GLYCOPROTEIN 1 ANTIBODY IGG/IGM PANEL(Performed 01/09/2023) Performed for Cerebrovascular accident (CVA), unspecified mechanism (HCC) * HOMOCYSTEINE BLOOD QUANTITATIVE(Performed 01/09/2023) Performed for Cerebrovascular accident (CVA), unspecified mechanism (HCC) * MTHFR MUTATION ANALYSIS(Performed 01/09/2023) Performed for Cerebrovascular accident (CVA), unspecified mechanism (HCC) * PROTEIN C ACTIVATED RESISTANCE(Performed 01/09/2023) Performed for Cerebrovascular accident (CVA), unspecified mechanism (HCC) * ERYTHROCYTE SEDIMENTATION RATE(Performed 01/09/2023) Performed for Cerebrovascular accident (CVA), unspecified mechanism (HCC) * SARS-COV-2 (COVID-19) RAPID(Performed 01/09/2023) * MRI BRAIN WO CONTRAST(Performed 01/09/2023) Performed for Cerebrovascular accident (CVA), unspecified mechanism (HCC) * GLUCOSE - POINT OF CARE(Performed 01/09/2023) * TROPONIN-I HIGH SENSITIVE REFLEX 1HOUR(Performed 01/09/2023) * LIPID PROFILE(Performed 01/09/2023) * HEMOGLOBIN A1C(Performed 01/09/2023) * CBC W AUTO DIFFERENTIAL(Performed 01/09/2023) * BASIC METABOLIC PANEL (CALCIUM TOTAL)(Performed 01/09/2023) * XR CHEST 1VW PORTABLE(Performed 01/08/2023) Performed for Cerebrovascular accident (CVA), unspecified mechanism (HCC) * TROPONIN-I HIGH SENSITIVE BASELINE + 1HR(Performed 01/08/2023) * PT EVAL AND TREAT(Performed 01/08/2023) * OT EVAL AND TREAT(Performed 01/08/2023) Results * CT CARDIAC ANGIO W DARIA EVAL (01/25/2024 9:25 AM CDT) Anatomical Region Laterality Modality Chest Computed Tomogra phy 01/25/2024 1:37 PM CDT Impressions 01/25/2024 1:49 PM CDT IMPRESSION: Mild eccentric atherosclerosis of the LAD without significant stenosis. > Interpreting Provider: Amrit Jurado MD on 01/25/2024 1:49 PM Narrative 01/25/2024 1:49 PM CDT PROCEDURE: CT CARDIAC ANGIO W DARIA EVAL, DATE/TIME OF EXAM: 01/25/2024 9:25 AM, LOCATION [facility] INDICATION: R00.2: Palpitations R07.9: Chest pain, unspecified ADDITIONAL CLINICAL INFORMATION: Ordering Provider Reason For Exam: Technologist Note: Additional: COMPARISON: None. TECHNIQUE: CT of the heart was performed prior to and following the uneventful administration of 100 mL of Isovue-370 intravenous contrast according to an angiographic protocol, including after the administration of intravenous Metoprolol and sublingual Nitroglycerin. Coronal, sagittal, and 3D volume rendered images were post processed. Dose reduction techniques were utilized. FINDINGS: Left ventricular ejection fraction: 70% at rate of 66 beats per minute The left main coronary artery origin and course is normal. The left main coronary artery divides into left anterior descending artery and circumflex artery. There is mild eccentric atherosclerosis of the LAD without significant stenosis. The left circumflex coronary artery is dominant and gives a branch to the posterior descending artery. The right coronary artery origin and course is normal. The right coronary artery is patent without evidence of atherosclerotic disease. The visible aorta and pulmonary arteries are normal in course and caliber. No filling defects are seen in the pulmonary arteries. The remaining enhanced mediastinal vascular structures are normal. The heart size is normal. No pericardial effusion is seen. The visible lungs are clear. No mediastinal lymphadenopathy is seen. The visible portions of the liver and spleen are normal. No suspicious lytic or blastic lesions are seen on bone windows. Procedure Note Amrit Jurado MD - 01/25/2024 PROCEDURE: CT CARDIAC ANGIO W DARIA LIBORIO, DATE/TIME OF EXAM: 01/25/2024 9:25 AM, LOCATION [facility] INDICATION: R00.2: Palpitations R07.9: Chest pain, unspecified ADDITIONAL CLINICAL INFORMATION: Ordering Provider Reason For Exam: Technologist Note: Additional: COMPARISON: None. TECHNIQUE: CT of the heart was performed prior to and following the uneventful administration of 100 mL of Isovue-370 intravenous contrast according to an angiographic protocol, including after theadministration of intravenous Metoprolol and sublingual Nitroglycerin. Coronal,sagittal, and 3D volume rendered images were post processed. Dose reduction techniques were utilized. FINDINGS: Left ventricular ejection fraction: 70% at rate of 66 beats per minute The left main coronary artery origin and course is normal. The left main coronary artery divides into left anterior descending artery andcircumflex artery. There is mild eccentric atherosclerosis of the LAD without significant stenosis. The left circumflex coronary artery is dominant and gives a branch tothe posterior descending artery. The right coronary artery origin and course is normal. The rightcoronary artery is patent without evidence of atherosclerotic disease. The visible aorta and pulmonary arteries are normal in course andcaliber. No filling defects are seen in the pulmonary arteries. The remaining enhanced mediastinal vascular structures are normal. The heart size is normal. No pericardial effusion is seen. The visible lungs are clear. No mediastinal lymphadenopathy is seen. The visible portions of the liver and spleen are normal. No suspicious lyticor blastic lesions are seen on bone windows. IMPRESSION: Mild eccentric atherosclerosis of the LAD without significant stenosis. > Interpreting Provider: Amrit Jurado MD on 01/25/2024 1:49 PM Candie Villalobos MD CT ORDERABLES * (ABNORMAL) CREATININE - POCT INTERFACED (01/25/2024 9:12 AM CDT) Creatinine POCT 0.86 0.70 - 1.20 mg/dL 01/25/2024 9:23 AM CDT [facility] eGFR 74(L) >=90 mL/min/1.7 3 m2 01/25/2024 9:23 AM CDT [facility] Blood BLOOD SPECIMEN / Unknown 01/25/2024 9:12 AM CDT 01/25/2024 9:23 AM CDT Candie Villalobos MD LAB - POINT OF CARE ORDERABLES [facility] [address] [id number] * CARDIAC EVENT MONITOR ORDER (12/01/2023) 12/01/2023 Narrative 12/01/2023 Ordered by an unspecified provider. Scanned Document CARDIAC SERVICES ORD ERABLES * NM MYOCARD PERF REST STRESS (03/03/2023 10:45 AM ROUTE AGENT) Anatomical Region Laterality Modality Chest Nuclear Digisoni cs 03/03/2023 8:27 AM ROUTE AGENT Narrative Procedure Note Candie Villalobos MD - 03/04/2023 [address] [place] [address] [place]/heart Nuclear Myocardial Perfusion Scan Report Pat.Name: NANETTE PATEL Pat.ID: [id number] .Date: 03/03/2023 Exam Time: 8:27:00 AM Study Type:Nuclear Myocardial Perfusion Scan Age: 6 1955,67Y Sex: FEMALE Sonogrphr: Kaden Guevara [facility] Pat. Stat.:Outpatient Reason for Study: Chest pain History / Clinical: Chest pain Procedures: Lexiscan Perfusion Scan Visit ID: [id number] Nurse: Paul Hernandez RN Clinical Symptoms:Chest pain ++++++++++++++++++++++++++++++++++++ SUMMARY: ++++++++++++++++++++++++++++++++++++ Myocardial perfusion image interpretation: 1. There is a predominantly fixed apical perfusion defect, breast attenuation suggested. There is no other clear-cut evidence of stress-induced reversible perfusion defect. 2. The left ventricle ejection fraction on Gated SPECT is 74 %. The is no clearcut regional wall motion abnormality ++++++++++++++++++++++++++++++++++++ STRESS: ++++++++++++++++++++++++++++++++++++ Baseline Vital Signs: Intervention Regadenoson Peak Dose 0.4 mg Atropine 0 Stress Test Results: Symptoms and Complications: Signed 03/04/2023 04:13 PM Candie Villalobos MD, FACC Candie Villalobos MD NM ORDERABLES * STRESS TEST EXERCISE (03/03/2023 9:48 AM ROUTE AGENT) BSA 1.96 m2 [facility] Predicted METS 6.1 METS [facility] Target HR 131 bpm [facility] Max Age Predicted HR 154 bpm [facility] Anatomical Region Laterality Modality Cardiac Electrop hysiology Narrative 03/03/2023 8:47 PM ROUTE AGENT ECG: The ECG was equivocal for ischemia. Myocardial perfusion imaging reported separately. Stress Findings A pharmacological stress test was performed using regadenoson (0.4 mg). The patient reported chest pain during the stress test. The patient reached the end of the protocol. Aminophylline was used as a reversal agent. ECG Resting ECG: Normal. Normal sinus rhythm. Stress ECG: Non-specific abnormalities in ST-segment deviation. Exhibits no arrhythmias. The ECG was equivocal for ischemia. Procedure Note Candie Villalobos MD - 03/03/2023 ECG: The ECG was equivocal for ischemia. Myocardial perfusion imaging reported separately. Candie Villalobos MD CARDIAC SERVICES CUP ID * CCL LOOP RECORDER IMPLANT (01/10/2023 11:17 AM CDT) Anatomical Region Laterality Modality X-Ray Angiograph y Narrative 02/06/2023 4:20 PM CDT Successful implantation of a loop recorder Reason for Procedure The patient is 67-year-old lady, who has been referred for placement of loop recorder, to rule out arrhythmic cause of cryptogenic CVA Procedure Details Estimated Blood Loss: none mL Loop Recorder Implant Implantable loop recorder implant was performed. The left anterior chest wall was sterilely prepped and draped in usual fashion. The timeout protocol was completed. 2% lidocaine with epinephrine local anesthesia was infiltrated over the ILR site. The provided skin puncture device was used to make a small incision in the anterior chest wall. The provided insertion tool was then inserted into the subcutaneous tissue and the ILR was injected through the insertion tool which was then removed. ECG signal was measured and deemed acceptable. Incision covered with skin glue. Candie Villalobos MD CV ELECTROPHYSIOLOGY CUPID PROCS * (ABNORMAL) CBC W AUTO DIFFERENTIAL (01/10/2023 4:27 AM CDT) Only the most recent of2 resultswithin the time period is included. WBC 4.1(L) 4.4 - 10.7 x10E9/L 01/10/2023 5:00 AM CDT [facility] WBC Corrected 01/10/2023 5:00 AM CDT [facility] RBC 3.88 3.80 - 5.20 x10E12/L 01/10/2023 5:00 AM CDT [facility] Hemoglobin 11.9(L) 12.0 - 15.6 gm/dL 01/10/2023 5:00 AM CDT [facility] Hematocrit 35.3(L) 35.9 - 45.5 % 01/10/2023 5:00 AM CDT [facility] MCV 91.0 80.7 - 98.3 fl 01/10/2023 5:00 AM CDT [facility] MCH 30.7 26.7 - 34.0 pg 01/10/2023 5:00 AM CDT [facility] MCHC 33.7 30.8 - 35.9 gm/dL 01/10/2023 5:00 AM CDT [facility] Platelet Count 265 153 - 416 x10E9/L 01/10/2023 5:00 AM CDT [facility] RDW-CV 12.5 12.1 - 14.9 % 01/10/2023 5:00 AM CDT [facility] MPV 10.0 9.4 - 12.9 fl 01/10/2023 5:00 AM CDT [facility] Neutrophils % 56.9 44.0 - 73.0 % 01/10/2023 5:00 AM CDT [facility] Lymphocytes % 30.8 20.0 - 43.0 % 01/10/2023 5:00 AM CDT [facility] Monocytes % 11.8 5.0 - 13.0 % 01/10/2023 5:00 AM CDT [facility] Eosinophils % 0.0 0.0 - 6.0 % 01/10/2023 5:00 AM CDT [facility] Basophils % 0.0 0.0 - 2.0 % 01/10/2023 5:00 AM CDT [facility] Immature Granulocytes 0.5 0 - 1 % 01/10/2023 5:00 AM CDT [facility] Neutrophil Absolute 2.31 2.01 - 7.14 x10E9/L 01/10/2023 5:00 AM CDT [facility] Lymphocytes Absolute 1.25 1.07 - 3.94 x10E9/L 01/10/2023 5:00 AM CDT [facility] Monocytes Absolute 0.48 0.26 - 1.07 x10E9/L 01/10/2023 5:00 AM CDT [facility] Eosinophils Absolute 0.00 0 - 0.47 x10E9/L 01/10/2023 5:00 AM CDT [facility] Basophils Absolute 0.00 0 - 0.08 x10E9/L 01/10/2023 5:00 AM CDT [facility] Immature Granulocytes Absolute 0.02 0.00 - 0.06 x10E9/L 01/10/2023 5:00 AM CDT [facility] nRBC Auto 0 /100 WBC 01/10/2023 5:00 AM CDT [facility] Blood BLOOD SPECIMEN / Unknown Venipuncture / Unknown 01/10/2023 4:27 AM CDT 01/10/2023 4:32 AM CDT Shahrzad Hoff MD LAB - HEMATOLOGY ORD ERABLES [facility] [address] [place] [address] * (ABNORMAL) BASIC METABOLIC PANEL (CALCIUM TOTAL) (01/10/2023 4:27 AM CDT) Only the most recent of2 resultswithin the time period is included. [facility] Glucose 101 70 - 105 mg/dL 01/10/2023 4:53 AM CDT [facility] Sodium 142 136 - 145 mmol/L 01/10/2023 4:53 AM CDT [facility] Potassium 4.3 3.5 - 5.1 mmol/L 01/10/2023 4:53 AM CDT [facility] Chloride 107 98 - 107 mmol/L 01/10/2023 4:53 AM CDT [facility] CO2 27 22 - 29 mmol/L 01/10/2023 4:53 AM CDT [facility] Calcium 9.6 8.4 - 10.4 mg/dL 01/10/2023 4:53 AM CDT [facility] Anion Gap 8 6 - 16 mmol/L 01/10/2023 4:53 AM CDT [facility] BUN 13 7 - 26 mg/dL 01/10/2023 4:53 AM CDT [facility] Creatinine 0.80 0.57 - 1.11 mg/dL 01/10/2023 4:53 AM CDT [facility] eGFR by CKD-EPI 81(L) >=90 mL/min/1.7 3 m2 01/10/2023 4:53 AM CDT [facility] Blood BLOOD SPECIMEN / Unknown Venipuncture / Unknown 01/10/2023 4:27 AM CDT 01/10/2023 4:32 AM CDT Shahrzad Hoff MD LAB - CHEMISTRY EMILY RIVERA [facility] [address] [place] [address] * ECHO COMPLETE (01/09/2023 1:01 PM CDT) BSA 1.96 m2 [facility] [employer] PACS Anatomical Region Laterality Modality Ultrasound Narrative 01/10/2023 7:58 AM CDT Left Ventricle: Not well visualized, but appears grossly normal in size. Normal wall thickness. Normal systolic function with a visually estimated EF of 55 - 60%. Normal wall motion. Normal diastolic function. Left Ventricle Not well visualized, but appears grossly normal in size. Normal wall thickness. Normal systolic function with a visually estimated EF of 55 - 60%. Normal wall motion. Normal diastolic function. Right Ventricle Right ventricle size is normal. Normal systolic function. Left Atrium Left atrium is dilated. Right Atrium Right atrium size is normal. IVC/SVC IVC diameter is less than or equal to 21 mm and decreases greater than 50% during inspiration; therefore the estimated right atrial pressure is normal (~3 mmHg). Mitral Valve Not well visualized. No restricted motion. Trace regurgitation. No stenosis. Tricuspid Valve Not well visualized. No restricted motion. Trace regurgitation. No stenosis. Aortic Valve Valve structure is trileaflet. Mildly thickened leaflets. Mildly calcified leaflets. No restricted motion. No regurgitation. No stenosis. Pulmonic Valve Valve structure is normal. No restricted motion. No regurgitation. No stenosis. Ascending Aorta Normal sized sinus of Valsalva (aortic root) and ascending aorta. Pericardium No pericardial effusion. Study Details Study quality was poor. A complete 2D, color Doppler, spectral Doppler and M- mode echocardiogram was performed. The apical, parasternal, subcostal and suprasternal views were obtained. Definity ultrasound enhancing agent used. Technical difficulties due to poor acoustic windows and patient supine position. Attempted Definity. Shahrzad Hoff MD ECHO CUPID * GLUCOSE - POINT OF CARE (01/09/2023 12:01 PM CDT) Only the most recent of2 resultswithin the time period is included. [facility] Glucose WB/POC 103 70 - 106 mg/dL 01/09/2023 12:05 PM CDT [facility] Specimen Type Cap Fingerstick 2022 12:05 PM CDT [facility] Blood BLOOD SPECIMEN / Unknown 01/09/2023 12:01 PM CDT 01/09/2023 12:05 PM CDT Shahrzad Hoff MD LAB - POINT OF CARE ORDERABLES Performing Organization Address City/State/[facility] Co de Phone Number [facility] [address] [place] [address] * (ABNORMAL) FACTOR VIII ASSAY [facility] (01/09/2023 11:07 AM CDT) [facility] Factor VIII Activity 283(H) 45 - 225 % 01/10/2023 3:10 PM CDT [facility] Comment: Biologic population variability within the Factor VIII Activity reference range is strongly correlated with ABO blood group phenotype. Blood group specific ranges are as follows: BLOOD TYPE O: Factor VIII = 45-180 BLOOD TYPE A: Factor VIII = 60-200 BLOOD TYPE B AND AB COMBINED: Factor VIII = 80-225 Increased levels of Factor VIII Activity may be observed in patients with liver disease, inflammatory disease, uremia, vasculitis and generalized, advanced atherosclerosis. Blood BLOOD SPECIMEN / Unknown Venipuncture / Unknown 01/09/2023 11:07 AM CDT 01/09/2023 11:12 AM CDT Narrative [facility] - 01/10/2023 3:10 PM CDT Patients on extended half-life factor VIII replacement (pegylated rVIII, etc.) or on factor VIII bypass (emicizumab) therapy: Please note that the reported aPTT and factor VIII activity (one stage assay) might be inaccurate, and possible factor VIII inhibitor titers will not be detected for extended periods of time. Specialized 2-stage chromogenic factor VIII assay should be utilized, if factor VIII activity is required to be determined in such patients. For more information, please consult the product package insert or contact a coagulation specialist of the laboratory at [phone]. Shahrzad Hoff MD LAB - COAGULATION OR DERABLES Performing Organization Address City/[facility]/ZIP Co de Phone Number [place] [address] [place] [address], [facility] [phone] * TSH REFLEX FREE T4 (01/09/2023 11:04 AM CDT) Pathologist [facility] TSH 1.928 0.350 - 4.940 uIU/mL 01/09/2023 11:52 AM CDT [facility] Blood BLOOD SPECIMEN / Unknown Venipuncture / Unknown 01/09/2023 11:04 AM CDT 01/09/2023 11:12 AM CDT Shahrzad Hoff MD LAB - CHEMISTRY ORDE RABLES Performing Organization Address [facility] Co de Phone Number [facility] [address] [place] [phone] * MTHFR MUTATION ANALYSIS (01/09/2023 11:04 AM CDT) Pathologist [facility] MTHFR DNA Analysis Comment 2022 11:09 AM CDT [facility] ([facility]) Comment: Result: c.665C>T (p. Knx576Mns), legacy name: [id number] - Detected, heterozygous c.1286A>C (p. [id number]), legacy name: [id number] - Not Detected Interpretation: This result is not associated with an increased risk for hyperhomocysteinemia. See Additional Clinical Information and Comments. Additional Clinical Information: Hyperhomocysteinemia is multifactorial involving genetic, clinical, and environmental risk factors. Reduced enzyme activity of methylenetetrahydrofolate reductase (MTHFR) is a genetic risk factor for hyperhomocysteinemia, particularly when serum folate levels are low. There are two common variants in the MTHFR gene that can decrease enzyme activity; c.665C>T (p. [id number]), legacy name C677T, and c.1286A>C (p. Ctk134Kst), legacy name [id number]. These variants do not independently increase risk of conditions related to hyperhomocysteinemia in the absence of elevated homocysteine levels. Measurement of total plasma homocysteine is recommended. Patients should share their MTHFR genotype with physicians who are making decisions regarding chemotherapy treatments that depend on folate, such as methotrexate. Guidelines do not recommend genotyping of these two MTHFR variants in the evaluation of venous thrombosis or obstetric risk due to limited evidence of clinical utility (PMID: 10276619). Comments: Genetic Coordinators are available for health care providers to discuss results at [phone] Test Details: Variants Analyzed: c.665C>T (p. Fre233Wsc), legacy name: C677T and c.1286A>C (p. Mbg932Ukk), legacy name: [id number] Methods/Limitations: DNA analysis of the MTHFR gene was performed by PCR amplification followed by restriction enzyme analysis. The diagnostic sensitivity is >99%. Results must be combined with clinical information for the most accurate interpretation. Molecular-based testing is highly accurate, but as in any laboratory test, diagnostic errors may occur. False positive or false negative results may occur for reasons that include genetic variants, blood transfusions, bone marrow transplantation, somatic or tissue-specific mosaicism, mislabeled samples, or erroneous representation of family relationships. This test was developed and its performance characteristics determined by [employer]. It has not been cleared or approved by the Food and Drug Administration. References: Sarah SE, Dimitry CJ, Jose FRANKS. ACMG Practice Guideline: lack of evidence for MTHFR polymorphism testing. Ladi Med. 2012;15(2):153-6. doi: 10.1038/gim.2012.165. Epub 2012Apr 28. PMID: 32408367. [place] [employer] and [employer]nec[employer]' Committee on Practice Bulletins-Obstetrics. ACOG Practice Bulletin No. 197: Inherited Thrombophilias in . Obstet Gynecol. 2018 Oct;132(1):e18-e34. doi: 10.1097/AOG.4958348649900838. Erratum in: Obstet Gynecol. 2018 Jan;132(4):1069. PMID: 53984607. Reviewed By Xiomara Howe, PhD 01/18/2023 11:09 AM CDT [facility] ([facility]) Blood BLOOD SPECIMEN / Unknown Venipuncture / Unknown 01/09/2023 11:04 AM CDT 01/09/2023 11:13 AM CDT Narrative [facility] ([facility]) - 01/18/2023 11:09 AM CDT Performed at: 01 - [facility] [address] [facility], [place], [place] [id number] Torpedo Specialist: Cristian Vazquez [facility], Phone: [phone] Shahrzad Hoff MD LAB - CHEMISTRY EMILY [facility] Organization Address City/State/ZIP Co de Phone Number [facility] ([facility]) [address] [place] [address] * PROTHROMBIN [id number] PANEL (01/09/2023 11:04 AM CDT) [facility] Factor II DNA Analysis Comment 01/18/2023 2:09 PM CDT [facility] ([facility]) Comment: Result: c.*97G>A - Not Detected This result is not associated with an increased risk for venous thromboembolism. See Additional Clinical Information and Comments. Additional Clinical Information: Venous thromboembolism is a multifactorial disease influenced by genetic, environmental, and circumstantial risk factors. The c.*97G>A variant in the F2 gene is a genetic risk factor for venous thromboembolism. Heterozygous carriers have a 2- to 4-fold increased risk for venous thromboembolism. Homozygotes for the c.*97G>A variant are rare. The annual risk of VTE in homozygotes has been reported to be 1.1%/year. Individuals who carry both a c.*97G>A variant in the F2 gene and a c.1601G>A (p. Ror041Alf) variant in the F5 gene (commonly referred to as Factor V Leiden) have an approximately 20- fold increased risk for venous thromboembolism. Risks are likely to be even higher in more complex genotype combinations involving the F2 c.*97G>A variant and Factor V Leiden (PMID: 61833696). Additional risk factors include but are not limited to: deficiency of protein C, protein S, or antithrombin III, age, male sex, personal or family history of deep vein thromboembolism, smoking, surgery, prolonged immobilization, malignant neoplasm, tamoxifen treatment, raloxifene treatment, oral contraceptive use, hormone replacement therapy, and . Management of thrombotic risk and thrombotic events should follow established guidelines and fit the clinical circumstance. This result cannot predict the occurrence or recurrence of a thrombotic event. Comments: Genetic counseling is recommended to discuss the potential clinical implications of positive results, as well as recommendations for testing family members. Genetic Coordinators are available for health care providers to discuss results at [phone] Test Details: Variant analyzed: c.*97G>A, previously referred to as [id number] Methods/Limitations: DNA analysis of the F2 gene (NM_000506.5) was performed by PCR amplification followed by restriction enzyme analysis. The diagnostic sensitivity is >99%. Results must be combined with clinical information for the most accurate interpretation. Molecular-based testing is highly accurate, but as in any laboratory test, diagnostic errors may occur. False positive or false negative results may occur for reasons that include genetic variants, blood transfusions, bone marrow transplantation, somatic or tissue-specific mosaicism, mislabeled samples, or erroneous representation of family relationships. This test was developed and its performance characteristics determined by [employer]. It has not been cleared or approved by the Food and Drug Administration. References: Gregory S, Carmel AK, Hammad R, Vinod WW, Nabeel JH; ACMG Professional Practice and Guidelines Committee. Addendum: [place] [employer] consensus statement on factor V Leiden mutation testing. Ladi Med. 2020Jun 28. doi: 10.1038/v19522-821-97278-d. PMID: 26574895. Gabriel JOSEPH. Prothrombin Thrombophilia. 2005Nov 17 [Updated 2020May 30]. In: Woody MP, Erin HH, Pierre RA, et al., editors. James(R) [Internet]. [place] ([place]): [facility]; 7894-9715. Available from: https://www.ncbi.nlm.nih.gov/books/NMS4917/ Leander S, Carmel AK, Douglas X, Emilio B, Wendy EB, Yocasta P, Jhoan CS; [facility] Laboratory Bus Attendant Committee. Venous thromboembolism laboratory testing (factor V Leiden and factor II c.*97G>A), 2018 update: a technical standard of the [place] [employer] and Genomics (ACMG). Ladi Med. 2018 Mar;20(12):3150-5129. doi: 10.1038/x62770-866-1356-y. Epub 2017Jan 28. PMID: 82157662. Reviewed By Comment 01/18/2023 2:09 PM CDT [facility] ([facility]) Comment: Technical Component performed at [facility] RT Professional Component performed by: Marianela Gonzalez, Ph.D., [facility] Director, Molecular Genetics [address] [place] [address] [place] [address] Blood BLOOD SPECIMEN / Unknown Venipuncture / Unknown 01/09/2023 11:04 AM CDT 01/09/2023 11:13 AM CDT N[facility]ative [facility]) - 01/18/2023 2:09 PM CDT Performed at: 01 - [facility] [address] [place], [place] [id number] Torpedo Specialist: Cristian Vazquez [facility], Phone: [phone] Shahrzad Hoff MD LAB - COAGULATION OR DERABLES [facility] ([facility]) [address] [place] [address] * FACTOR V LEIDEN MUTATION PANEL (01/09/2023 11:04 AM CDT) [facility] Factor V Leiden Comment 5:08 PM CDT [facility] ([facility]) Comment: Result: c.1601G>A (p.Rgb905Wmr) - Not Detected This result is not associated with an increased risk for venous thromboembolism. See Additional Clinical Information and Comments. Additional Clinical Information: Venous thromboembolism is a multifactorial disease influenced by genetic, environmental, and circumstantial risk factors. The c.1601G>A (p. Orm214Wwb) variant in the F5 gene, commonly referred to as Factor V Leiden, is a genetic risk factor for venous thromboembolism. Heterozygous carriers of this variant have a 6- to 8-fold increased risk for venous thromboembolism. Individuals homozygous for this variant (ie, with a copy of the variant on each chromosome) have an approximately 80-fold increased risk for venous thromboembolism. Individuals who carry both a c.*97G>A variant in the F2 gene and Factor V Leiden have an approximately 20-fold increased risk for venous thromboembolism. Risks are likely to be even higher in more complex genotype combinations involving the F2 c.*97G>A variant and Factor V Leiden (PMID: 51903480). Additional risk factors include but are not limited to: deficiency of protein C, protein S, or antithrombin III, age, male sex, personal or family history of deep vein thromboembolism, smoking, surgery, prolonged immobilization, malignant neoplasm, tamoxifen treatment, raloxifene treatment, oral contraceptive use, hormone replacement therapy, and . Management of thrombotic risk and thrombotic events should follow established guidelines and fit the clinical circumstance. This result cannot predict the occurrence or recurrence of a thrombotic event. Comment: Genetic counseling is recommended to discuss the potential clinical implications of positive results, as well as recommendations for testing family members. Genetic Coordinators are available for health care providers to discuss results at [phone]). Test Details: Variant Analyzed: c.1601G>A (p. Rzg418Gkd), referred to as Factor V Leiden Methods/Limitations: DNA analysis of the F5 gene (NM_000130.5) was performed by PCR amplification followed by restriction enzyme analysis. The diagnostic sensitivity is >99%. Results must be combined with clinical information for the most accurate interpretation. Molecular-based testing is highly accurate, but as in any laboratory test, diagnostic errors may occur. False positive or false negative results may occur for reasons that include genetic variants, blood transfusions, bone marrow transplantation, somatic or tissue-specific mosaicism, mislabeled samples, or erroneous representation of family relationships. This test was developed and its performance characteristics determined by [employer]. It has not been cleared or approved by the Food and Drug Administration. References: Gregory S, Carmel AK, Hammad R, Vinod WW, Nabeel JH; ACMG Professional Practice and Guidelines Committee. Addendum: [place] [employer] consensus statement on factor V Leiden mutation testing. Ladi Med. 2020Jun 28. doi: 10.1038/[id number]-b. PMID: 25513223. Gabriel JOSEPH. Factor V Leiden Thrombophilia. 1998September 06 (Updated 2017Apr 29). In: Woody MP, Erin HH, Pierre RA, et al., editors. [employer]onikaryBantu LLCRSumavision (Internet). [place] ([place]): [facility]; 5395-1506. Available from: https://www.ncbi.nlm.nih.gov/books/PPO3773/ Leander S, Carmel AK, Cole X, Emilio B, Wendy EB, Yocasta P, Jhoan CS; [employer] Laboratory Bus Attendant Committee. Venous thromboembolism laboratory testing (factor V Leiden and factor II c.*97G>A), 2018 update: a technical standard of the [place] [employer] and Genomics (ACMG). Ladi Med. 2018 Mar;20(12):3951-3206. doi: 10.1038/u21720-951-6583-y. Epub 2017Jan 28. PMID: 88928089. Reviewed By Comment 01/15/2023 5:08 PM CDT [facility] ([facility]) Comment: Technical Component performed at [facility] Professional Component performed by: Claudette Haas, Ph.D., [facility] Director, Molecular Genetics [address] [place] [address] Blood BLOOD SPECIMEN / Unknown Venipuncture / Unknown 01/09/2023 11:04 AM CDT 01/09/2023 11:12 AM CDT Narrative [facility] ([facility]) - 01/15/2023 5:08 PM CDT Performed at: 01 - [facility] [address] [place], [place] [id number] Torpedo Specialist: Cristian Vazquez [facility], Phone: [phone] Shahrzad Hoff MD LAB - COAGULATION OR DERABLES [facility] ([facility]) [address] [place] [address] * PROTEIN C ACTIVATED RESISTANCE (01/09/2023 11:04 AM CDT) [facility] Act.Prt.C Resist. 2.9 2.2 - 3.5 ratio 01/11/2023 2:09 PM CDT [facility] ([facility]) Comment: The APCR result may be falsely increased (masking an abnormal, low APCR result) in patients on direct Xa inhibitor (e.g., rivaroxaban, apixaban, edoxaban) or a direct thrombin inhibitor (e.g., dabigatran) anticoagulant therapy due to assay interference by these drugs. Blood BLOOD SPECIMEN / Unknown Venipuncture / Unknown 01/09/2023 11:04 AM CDT 01/09/2023 11:[address] [facility] ([facility]) - 01/11/2023 2:09 PM CDT Performed at: [address] [place] [id number] Torpedo Specialist: Faina Mills MD, Phone: [phone] Shahrzad Hoff MD LAB - COAGULATION OR DERABLES [facility]) [address] [place] [address] * CARDIOLIPIN ANTIBODY IGG/IGM PANEL (01/09/2023 11:04 AM CDT) [facility] Cardiolipin Antibody IgG <9 0 - 14 GPL U/mL 01/11/2023 1:08 PM CDT [facility] ([facility]) Comment: Negative: <15 Indeterminate: 15 - 20 Low-Med Positive: >20 - 80 High Positive: >80 Cardiolipin Antibody IgM <9 0 - 12 MPL U/mL 01/11/2023 1:08 PM CDT [facility] ([facility]) Comment: Negative: <13 Indeterminate: 13 - 20 Low-Med Positive: >20 - 80 High Positive: >80 Blood BLOOD SPECIMEN / Unknown Venipuncture / Unknown 01/09/2023 11:04 AM CDT 01/09/2023 11:12 AM CDT Narrative [facility] ([facility]) - 01/11/2023 1:08 PM CDT Performed at: - [facility] [address] [place], [place] [id number] Torpedo Specialist: Jose Benavides PhD, Phone: [phone] Shahrzad Hoff MD LAB - SEROLOGY ORDER MILO Performing Organization Address City/[facility]/ZIP Co de Phone Number [facility] ([facility]) [address] [place] [address] * BETA-2 GLYCOPROTEIN 1 ANTIBODY IGG/IGM PANEL (01/09/2023 11:04 AM CDT) [facility] Beta-2 Glycoprotein I Antibody IgG <9 0 - 20 GPI IgG units 01/12/2023 2:10 PM CDT [facility] ([facility]) Comment: The reference interval reflects a 3SD or 99th percentile interval, which is thought to represent a potentially clinically significant result in accordance with the International Consensus Statement on the classification criteria for definitive antiphospholipid syndrome (APS). J Thromb Haem 2006;4:295-306. Beta-2 Glycoprotein I Antibody IgM <9 0 - 32 GPI IgM units 01/12/2023 2:10 PM CDT [facility] ([facility]) Comment: The reference interval reflects a 3SD or 99th percentile interval, which is thought to represent a potentially clinically significant result in accordance with the International Consensus Statement on the classification criteria for definitive antiphospholipid syndrome (APS). J Thromb Haem 2006;4:295-306. Blood BLOOD SPECIMEN / Unknown Venipuncture / Unknown 01/09/2023 11:04 AM CDT 01/09/2023 11:12 AM CDT Narrative [facility] ([facility]) - 01/12/2023 2:10 PM CDT Performed at: [address] [id number] Torpedo Specialist: Faina Mills MD, Phone: [phone] Shahrzad Hoff MD LAB - CHEMISTRY ORDE RABELSY [facility] ([facility]) [address] [place] [address] * HOMOCYSTEINE BLOOD QUANTITATIVE (01/09/2023 11:04 AM CDT) [facility] Homocysteine 10.3 0.0 - 17.2 umol/L 01/10/2023 8:08 AM CDT [facility] ([facility]) Blood BLOOD SPECIMEN / Unknown Venipuncture / Unknown 01/09/2023 11:04 AM CDT 01/09/2023 11:15 AM CDT Narrative [facility] ([facility]) - 01/10/2023 8:08 AM CDT Performed at: 01 - [place] [id number] [place], [place] [id number] Torpedo Specialist: Jose Benavides PhD, Phone: [phone] Shahrzad Hoff MD LAB - CHEMISTRY ORDE RABLES [facility] ([facility]) [address] [place] [address] * ANTITHROMBIN III ACTIVITY (01/09/2023 11:04 AM CDT) [facility] Antithrombin III Activity 95.0 80.0 - 120.0 % 01/10/2023 1:58 PM CDT [facility] Blood BLOOD SPECIMEN / Unknown Venipuncture / Unknown 01/09/2023 11:04 AM CDT 01/09/2023 11:13 AM CDT [facility] - 01/10/2023 1:58 PM CDT Thrombin inhibitors (i.e., hirudin, argatroban...) present in the sample to be tested may lead to an over-estimation of the AT level. Shahrzad Hoff MD LAB - COAGULATION OR DERABLES [address] [address], [facility] [phone] * PHOSPHOLIPID ANTIBODY IGG/IGA/IGM PANEL (01/09/2023 11:04 AM CDT) [facility] Specimen Status Comment 2:10 PM CDT [facility] ([facility]) Comment:Reference lab report sent via fax. Interpretation Comment 01/22/2023 2:10 PM CDT [facility] ([facility]) Comment: Results for CL are reported as phospholipid units based on Vincent' Antiphospholipid antibody standards: GPL for IgG phospholipid units, MPL for IgM phospholipid units, APL for IgA phospholipid units. Results for PI, PG, and PS are based on normalized population data standardized to equivalent phospholipid units (Approximately 3 multiples of the median or 4 standard deviations). GPL MPL APL Result Interpretation <=10 <=10 <=15 Negative No evidence for antiphospholipid antibodies >10-<=20 10-<25 15-<=28 Borderline Not associated with poor outcome or manifestations. >20-=<80 >=25-<80 >28-<=80 Positive Can be associated with recurrent loss, lupus, and thrombosis. >80 >80 >80 High Stronger association Positive with thromboembolic events / autoimmune disease. Blood BLOOD SPECIMEN / Unknown Venipuncture / Unknown 01/09/2023 11:04 AM CDT 01/09/2023 11:13 AM CDT Raf [facility] ([facility]) - 01/22/2023 2:10 PM CDT Performed at: 01 - [facility] [address], [place], [place] [id number] Torpedo Specialist: Ajit Mata [facility], Phone: [phone] Performed at: 02 - [facility] [address] [place], [place] [id number] Torpedo Specialist: Jose Benavides PhD, Phone: [phone] Shahrzad Hoff MD LAB - SEROLOGY ORDER MILO Performing Organization Address City/[facility]/ZIP Co de Phone Number [facility] ([facility]) [address] [place] [address] * ERYTHROCYTE SEDIMENTATION RATE (01/09/2023 11:04 AM CDT) [facility] Erythrocyte Sedimentation Rate Automated 10 0 - 30 MM/HR 01/09/2023 11:34 AM CDT [facility] Blood BLOOD SPECIMEN / Unknown Venipuncture / Unknown 01/09/2023 11:04 AM CDT 01/09/2023 11:13 AM CDT Shahrzad Hoff MD LAB - HEMATOLOGY ORD ERABLES [facility] [address] [place], [place] [id number] * SARS-COV-2 (COVID-19) RAPID (01/09/2023 10:44 AM CDT) [facility] COVID-19 PCR Not detected Not detected 01/10/20 23 11:48 AM CDT [facility] Microbiology SPECIMEN FROM NASOPHARYNGEAL STRUCTURE / Unknown Collection / Unknown 01/09/2023 10:44 AM CDT 01/09/2023 11:10 AM CDT Narrative [facility] - 01/09/2023 11:48 AM CDT The Cepheid Xpert Xpress SARS-COV-2 has been authorized by the Food and Drug Administration (FDA) under an Emergency Use Authorization (EUA). This test has been validated in accordance with the FDA's guidance document Policy for Diagnostic Testing in Laboratories Certified to perform High Complexity Testing under CLIA prior to Emergency Use Authorization for Coronavirus Disease-2019 during the Public Health Emergency issued on June 24, 2019. FDA independent review of this validation is pending. This test is only authorized for the duration of the time the declaration that circumstances exist justifying the authorization of emergency use of in vitro diagnostic tests for detection of SARS-COV-2 virus and/or diagnosis of COVID-19 infection under 564(b) (1) of the Act. 21 U.S.C. 360bbb-3 (b) (1), unless the authorization is terminated or revoked sooner. Fact Sheets for this EUA assay are available upon request. Rosi Antonio ORTHOTIC FITTER-CORE DRILLER HELPER LAB - MICROBIOL OGY ORDERABLES [facility] [address] [place] [id number] * MRI BRAIN NON CONTRAST (01/09/2023 9:43 AM CDT) Anatomical Region Laterality Modality Head Magnetic Resonan ce 01/09/2023 10:4 8 AM CDT Impressions 01/09/2023 10:49 AM CDT Impression: Small area of acute ischemia noted in the right subcortical occipital lobe. > Interpreting Provider: Nacho Ye DO on 01/09/2023 10:49 AM Narrative 01/09/2023 10:49 AM CDT MRI Brain Without Contrast Clinical Indication: Neurological deficit Technique: Multisequence, multiplanar MRI sequences of the brain without contrast. Findings: A small focus of restricted diffusion with low signal on the ADC map is noted within the cortex of the right occipital lobe. No other abnormalities are identified. No mass, hemorrhage, or midline shift is seen. The ventricular size is normal. There are no extra-axial fluid collections. Flow void is seen in the major intracranial vessels. The paranasal sinuses and mastoid air cells are clear. Procedure Note Nacho Ye DO - 01/09/2023 MRI Brain Without Contrast Clinical Indication: Neurological deficit Technique: Multisequence, multiplanar MRI sequences of the brain without contrast. Findings: A small focus of restricted diffusion with low signal on the ADC map is noted within the cortex of the right occipital lobe. No otherabnormalities are identified. No mass, hemorrhage, or midline shift is seen. The ventricular size is normal. There are no extra-axial fluid collections. Flow void is seen in the major intracranial vessels. The paranasalsinuses and mastoid air cells are clear. Impression: Small area of acute ischemia noted in the right subcortical occipitallobe. > Interpreting Provider: Nacho Ye DO on 01/09/2023 10:49 AM Shahrzad Hoff MD MR ORDERABLES * TROPONIN-I HIGH SENSITIVE REFLEX 1HOUR (01/09/2023 4:21 AM CDT) Pathologist [facility] Troponin I High Sensitive 3 <=14 ng/L 01/09/2023 5:23 AM CDT [facility] Delta Troponin I HS 01/09/2023 5:23 AM CDT [facility] Comment:Delta value intentio tamir not calculated. Baseline to 1 hour specimen collection interval exceeded. Blood BLOOD SPECIMEN / Unknown Venipuncture / Unknown 01/09/2023 4:21 AM CDT 01/09/2023 4:36 AM CDT Shahrzad Hoff MD [facility] Organization Address City/State/ZIP Co de Phone Number [facility] [address] [place] [address] * HEMOGLOBIN A1C (01/09/2023 2:54 AM CDT) Pathologist [facility] Hemoglobin A1c 5.0 <5.7 % 01/09/2023 3:27 AM CDT [facility] Estimated Average Glucose 97 mg/dL 01/09/2023 3:27 AM CDT [facility] Blood BLOOD SPECIMEN / Unknown Venipuncture / Unknown 01/09/2023 2:54 AM CDT 01/09/2023 3:06 AM CDT Narrative [facility] - 01/09/2023 3:27 AM CDT HbA1c Interpretation: Normal: < 5.7% Pre-diabetes: 5.7-6.4% Diabetes: Equal to or greater than 6.5% Test results diagnostic of diabetes should be repeated for confirmation. Treatment target values recommended by ADA and other clinical organizations should be used to evaluate metabolic control in patients. This test should not replace glucose testing for patients with Type 1 diabetes, pediatric patients, or women. Falsely low HbA1c results may be observed in patients with clinical conditions that shorten erythrocyte life span or decrease mean erythrocyte age such as the presence of unstable hemoglobin variants, elevated hemoglobin F level or other causes of hemolytic anemia. HbA1c may not accurately reflect glycemic control when clinical conditions that affect erythrocyte survival are present. Severe Iron deficiency anemia may yield falsely high results. Hemoglobin A1c assay should not be used to diagnose or monitor diabetes in patients with malignancy, recent blood transfusion, chronic kidney or liver disease. This method may yield falsely low results when hemoglobin (HbF) exceeds 5% in the specimen. The [employer] Installer assay for the measurement of HbA1c is a National Glycohemoglobin Standardization Program (NGSP) certified method. Shahrzad Hoff MD LAB - CHEMISTRY EMILY RIVERA Performing Organization Address [facility] Co de Phone Number [facility] [address] [place] [phone] * LIPID PROFILE (01/09/2023 2:54 AM CDT) [facility] Cholesterol 192 <200 mg/dL 01/09/2023 4:16 AM CDT [facility] Triglycerides 87 <150 mg/dL 01/09/2023 4:16 AM CDT [facility] HDL Cholesterol 51 >40 mg/dL 3 4:16 AM CDT [facility] LDL Calculated 124 <130 mg/dL 01/09/2023 4:16 AM CDT [facility] VLDL Calculated 17 <=30 mg/dL 3 4:16 AM CDT [facility] Chol HDL Ratio 3.8 <4.5 01/09/2023 4:16 AM CDT [facility] LDL/HDL Ratio 2.4 <5.0 01/09/2023 4:16 AM CDT [facility] Blood BLOOD SPECIMEN / Unknown Venipuncture / Unknown 01/09/2023 2:54 AM CDT 01/09/2023 4:03 AM CDT Shahrzad Hoff MD LAB - CHEMISTRY EMILY RIVERA Performing Organization Address [facility] Co de Phone Number [facility] [address] [place] [phone] * XR CHEST 1VW PORTABLE (01/08/2023 8:05 PM CDT) Anatomical Region Laterality Modality Chest Radiographic Gretchen ging 01/08/2023 8:23 PM CDT Impressions 01/08/2023 8:23 PM CDT IMPRESSION: Airspace opacity in right lower lobe and elevated right hemidiaphragm > Interpreting Provider: Jing Shaw MD on 01/08/2023 8:23 PM Narrative 01/08/2023 8:23 PM CDT PROCEDURE: XR CHEST 1VW PORTABLE DATE/TIME OF EXAM: 01/08/2023 8:05 PM CLINICAL INFORMATION: None relevant/not provided if blank. Indication: I63.9: Cerebral infarction, unspecified (CMS/HCC) Additional History: COMPARISON: None. FINDINGS: Elevated right hemidiaphragm. Right lower lobe opacity. Left lung is clear. No pleural effusion or pneumothorax seen. Cardiac mediastinal silhouette is normal. Procedure Note Jing Shaw MD - 01/08/2023 PROCEDURE: XR CHEST 1VW PORTABLE DATE/TIME OF EXAM: 01/08/2023 8:05 PM CLINICAL INFORMATION: None relevant/not provided if blank. Indication: I63.9: Cerebral infarction, unspecified (CMS/HCC) Additional History: COMPARISON: None. FINDINGS: Elevated right hemidiaphragm. Right lower lobe opacity. Left lung isclear. No pleural effusion or pneumothorax seen. Cardiac mediastinal silhouetteis normal. IMPRESSION: Airspace opacity in right lower lobe and elevated right hemidiaphragm > Interpreting Provider: Jing Shaw MD on 01/08/2023 8:23 PM Shahrzad Hoff MD DIAGNOSTIC IMAGING O RDERABLES * TROPONIN-I HIGH SENSITIVE BASELINE + 1HR (01/08/2023 7:26 PM CDT) Troponin I High Sensitive 4 <=14 ng/L 01/08/2023 8:17 PM CDT [facility] Blood BLOOD SPECIMEN / Unknown Venipuncture / Unknown 01/08/2023 7:26 PM CDT 01/08/2023 7:47 PM CDT Shahrzad Hoff MD LAB - CHEMISTRY EMILY RIVERA [facility] Organization Address City/State/ZIP Co de Phone Number [facility] [address] [place] [address] Care Teams Turkey Roll Maker Relationship Specialty Start Date End Date Jose Juan Gonzalez MD [address] [place] [phone] PCP - General Internal Medicine 01/10/23
--- OUTSIDE RECORDS SUMMARY | 2024-06-08 13:52 | XMS_ITS ---
Author Organization [facility] Address [address] [place] [address] Care Team Providers Care Collector Of Aquarium Specimens Name Role Phone Haven Menard Unavailable [phone] REASON FOR VISIT RX Medications Medication SIG (Take, Route, Fr equency, Duration) Notes Start Date End Date Status Promethazine HCl 25 MG 1 tablet as neede d Orally three times daily PRN for 90 days 01/17/2024 Active Encounters Encounter Location Date Provider Diagnosis [facility] [address] [place] [address] 01/17/2024 Haven Menard Plan Of Treatment Medication Medication Name Sig Start Date Stop Date Notes Promethazine HCl 25 MG 1 tablet as neede d Orally three times daily PRN for 90 days 01/17/2024 Progress Notes * Nanette PLASENCIADOB: (68 yo F)Acc No.[id number]:01/17/2024 Patient: Nanette RICO :1955 A ge:68 Y S ex:Female Address:[address] [place], [address] * Refills Start Promethazine HCl Tablet, 25 MG, Orally, 60, 1 tablet as needed, three times daily PRN, 90 days, Refills=5 Subjective: * Chief Complaints: * R X * Medical History: * Surgical History: * Hospitalization/Major Diagno stic Procedure: * Medications: Objective: * Vitals: * Physical Examination: Assessment: Plan: * Treatment: * Procedure Codes: * true * Date: Generated for Luly ventura/Fidelia/Tuan on: 0 06/08/2024 06:21 AM HEAD CHAR FILTER TANK TENDER
--- OUTSIDE RECORDS SUMMARY | 2024-06-08 13:52 | XMS_ITS | Patient Health Record ---
Author Organization [facility] Address [address] [place] [id number] Care Team Providers Care Industrial Sociologist Name Role Phone Shiloh Brandt Unavailable [phone] Jose Juan Gonzalez Unavailable Unavailable [facility], Provider Unavailable Unavailab le Allergies No Known Allergies Results Component Value Reference Range Notes Spirometry Reviewed date: Interpretation:Abnormal Performing Lab: Notes/Report: Abnormal SpiroPreBronchodilator_FVC 1.94 SpiroPostBronchodilator_FEF25_75 0 SpiroPreBronchodilator_FEF25_75 2.33 SpiroPreBronchodilator_FEV1 1.68 SpiroPrecentPredictionPost_FEF25_75 0 SpiroPrecentPredictionPost_FEV1 0 SpiroPrecentPredictionPost_FEV1_OVER_FVC 0 SpiroPrecentPredictionPost_FVC 0 SpiroPrecentPredictionPre_FEF25_75 112.6 SpiroPrecentPredictionPre_FEV1 79.2 SpiroPrecentPredictionPre_FEV1_OVER_FVC 110.7 SpiroPrecentPredictionPre_FVC 71.3 SpiroPredicted_FEF25_75 2.07 SpiroPreBronchodilator_FEV1_OVER_FVC 86.54 SpiroPreBronchodilator_PEF 5.37 SpiroPostBronchodilator_FVC 0 SpiroPostBronchodilator_FEV1 0 SpiroPostBronchodilator_FEV1_OVER_FVC 0 SpiroPostBronchodilator_PEF 0 SpiroPredicted_FVC 2.72 SpiroPredicted_FEV1 2.12 SpiroPredicted_FEV1_OVER_FVC 78.14 SpiroPredicted_PEF 5.33 Reason For Referral No Information Medications Medication SIG (Take, Route, Frequency, Duration) Notes Start Date End Date Status HYDRALAZINE HYDROCHLORIDE 100 mg 1 tab(s) orally 3 times a day for 30 days 04/14/2023 Active METOPROLOL 100 mg 1 tab(s) orally once a day Active LOSARTAN 25 mg 1 tab(s) orally once a day Active HYDROCHLOROTHIAZIDE 25 mg 1 tab(s) orally once a day Active CRESTOR 10 mg 1 tab(s) orally once a day Active ASPIRIN 325 mg 1 tab(s) orally once a day Active ZOLPIDEM 10 mg 1 tab(s) orally once a day (at bedtime) PRN Active Naltrexone HCl 50 MG 1 tab(s) orally once a day 09/14/2023 Active PROzac 20 MG 5 cap(s) orally once a day Active Flovent HFA 110 MCG/INH DIRECTED INHA LED 2 TIMES A DAY for 30 DAYS *Please review and pick correct strength-formula tion from [employer] options. If intended option is not shown, discontinue and re-order from Quick Search* 06/16/2023 Active Asmanex HFA 100 MCG/ACT 1 puff inhaled daily for 30 days 07/20/2023 Active Iron Chews Pediatric 15 MG 1 tab(s) orally once a day Active Zepbound 5 MG/0.5 ML DIRECTED SUBCUTANEOUSLY ONCE A WEEK *Please review and pick correct strength-formula tion from [employer] options. If intended option is not shown, discontinue and re-order from Quick Search* Active ALL DAY ALLERGY (CETIRIZINE) 10 MG 1 TAB(S) ORALLY ONCE A DAY *Please review for potential replacement for e-prescription and drug interaction check* Active ASMANEX HFA 100 mcg/inh 1 puff inhaled daily for 30 days 07/20/2023 Active NALTREXONE 50 mg 1 tab(s) orally once a day 1.5 mlg 09/14/2023 Active ZEPBOUND 5 mg/0.5 mL as directed subcutaneously once a week Active IRON CHEWS 15 mg 1 tab(s) orally once a day Active hydrALAZINE HCl 100 MG 1 tab(s) orally 3 times a day for 30 days 04/14/2023 Active Metoprolol Succinate ER 100 MG 1 tab(s) orally once a day Active Ventolin HFA 108 (90 Base) MCG/ACT 2 puff(s) inhaled Q4-6 hours, PRN and per the asthma action plan for 30 days Active hydroCHLOROthiazide 25 MG 1 tab(s) orally once a day Active Crestor 10 MG 1 tab(s) orally once a day Active VENTOLIN HFA 90 mcg/inh 2 puff(s) inhale d Q4-6 hours, PRN and per the asthma action plan for 30 days Active Losartan Potassium 25 MG 1 tab(s) orally once a day Active Provigil 200 MG 1 tab(s) orally once a day (in the morning) Active Flonase Allergy Relief 50 MCG/ACT 2 spray(s) in each nostril twice a day Active Aspirin 325 MG 1 tab(s) orally once a day Active Zolpidem Tartrate 10 MG 1 tab(s) orally once a day (at bedtime) PRN Active PROVIGIL 200 mg 1 tab(s) orally once a day (in the morning) Active FLONASE ALLERGY RELIEF 50 mcg/inh 2 spray(s) in each nostril twice a day Active PROZAC 20 mg 5 cap(s) orally once a day Active FLOVENT HFA 110 mcg/inh as directed inha led 2 times a day for 30 days 06/16/2023 Active Social History Tobacco Use: Social History Observation Description Date Details (start date - stop date) Never Smoker NA - NA Smoking Smart Form: Question Answer Notes Are you a: never smoker Tobacco Control (Standard) Question Answer Notes Tobacco use: Nonsmoker Problems Problem Type SNOMED Code ICD Code Onset Dates Problem Status W/U Status Risk Notes Problem Chronic rhinitis (77307577) Chronic rhinitis (J31.0) Active confirmed Problem Hypogammaglobulinemi a (527083318) Nonfamilial 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) Active confirmed Problem Chronic cough (04658244) Chronic cough (R05.3) Active confirmed Vital Signs Blood pressure diastolic 113 mm Hg 09/14/2023 Oximetry 93 % 09/14/2023 Height 62 in 09/14/2023 Blood pressure systolic 168 mm Hg 09/14/2023 Weight 191.6 lbs 09/14/2023 BMI 35.04 kg/m2 09/14/2023 Encounters Encounter Location Date [place] [address] 10/09/2023 Provider [facility] Chronic cough R05.[address] [address] 06/16/2023 Shiloh Brandt Chronic rhinitis J31 .0 ; Nonfamilial hypogammaglobulinemia D80.1 and Chronic cough R05.[address] [address] 09/14/2023 Shiloh Brandt Chronic rhinitis J31 .0 ; Nonfamilial hypogammaglobulinemia D80.1 and Chronic cough R05.[address] [address] 06/17/2023 Shiloh Brandt [address] [address] 07/13/2023 Shiloh Brandt [address] [address] 07/20/2023 Shiloh Brandt [address] [address] 08/19/2023 Shiloh Brandt [address] [address] 09/15/2023 Shiloh Brandt Assessments Encounter Date Diagnosis (ICD Code) Assessment Notes Treatment Notes Treatment Clinical Notes Section Notes 06/16/2023 Chronic rhinitis (IC D-10 - J31.0) Skin testing was negative for aeroallergens. We discussed non allergic rhinitis including trigger factors of strong odors and changes in barometric pressure. 06/16/2023 Nonfamilial hypogammaglobulinemia (ICD-10 - D80.1) IgA 126, IgG 680, IgM 57. Repeat labs show-- IgG 682, IgA 112, IgM 30, normal tetanus and HIB. S. Pneumo titers +. History of pneumonia January 2023 and March 2023. Due to recent pneumonia, we discussed IVIG and planning to start Cuvitru in a few weeks. 09/14/2023 Chronic rhinitis (IC D-10 - J31.0) Skin testing was negative for aeroallergens. We discussed non allergic rhinitis including trigger factors of strong odors and changes in barometric pressure. 09/14/2023 Nonfamilial hypogammaglobulinemia (ICD-10 - D80.1) IgA 126, IgG 680, IgM 57. Repeat labs show-- IgG 682, IgA 112, IgM 30, normal tetanus and HIB. S. Pneumo titers +. History of pneumonia January 2023, March 2023, and now July 2023. CT chest 08-17-2023 showed patchy ground glass opacity and consolidation at apical segment of the right upper lobe consistent with pneumonia. Right basilar and left lower lobe atelectasis. Due to 3 episodes of pneumonia in the last 6 months and decreased IgG level, we discussed immunoglobulin replacement. Therapy was not approved by insurance and we will work on insurance appeal. 09/14/2023 Chronic cough (ICD-1 0 - R05.3) Spirometry at her last visit shows possible obstruction, but difficulty performing. Continue Asmanex and prn albuterol 10/09/2023 Chronic cough (ICD-1 0 - R05.3) 06/16/2023 Chronic cough (ICD-1 0 - R05.3) Spirometry today shows possible obstruction, but difficulty performing. Start Flovent on a consistent basis and continue prn albuterol 06/16/2023 Other 09/14/2023 Other Plan Of Treatment Pending Test Test Name Order Date RESPIRATORY ALLERGY PROFILE REGION VIII: [place], [place] 12/29/2022 STREPTOCOCCUS PNEUMONIAE IGG AB (23 SERO TYPES) 12/29/2022 STREPTOCOCCUS PNEUMONIAE IGG AB (23 SERO TYPES) 02/11/2023 TETANUS ANTITOXOID ANTIBODY (EIA) 2022 CBC (INCLUDES DIFF/PLT) 12/29/2022 LYMPHOCYTE SUBSET PANEL 1 12/29/2022 HAEMOPHILUS INFLUENZAE B ANTIBODY, IGG 0 12/29/2022 IMMUNOGLOBULINS A/E/G/M,SERUM 12/29/2022 Insurance Providers Payer Name Payer Address Payer Phone Subscriber Number Group Number Insured Name Patient Relationship to Insured Coverage Start Date Coverage End Date [facility] [address] [place] [address] [id number] Nanette Patel Self - patient is the insured Medical (General) History Medical History History ICD Code Paralyzed diaphragm Broken rib Sinusitis Shingles Pneumonia Surgical History Surgery Date(Month/Year) Abdominoplasty Hospitalization History Reason Date(Month/Year) Kidney Failure
--- OUTSIDE RECORDS SUMMARY | 2024-06-08 13:52 | XMS_ITS | Encounter Summary ---
Author Organization [facility] Address [facility] [place] [address] Care Team Providers Care Chief Information Security Officer Name Role Phone Sharlene Bustamante MD Primary Care P rovider Encounter Details Date Type Department Care Team (Late st Contact Info) Description 08/18/2022 [facility] [address] Michelle Owens MA Social History Tobacco Use Types Packs/Day Years Used Date Smoking Tobacco: Never Smokeless Tobacco: Never Alcohol Use Standard Drinks/Week Comments Yes 0 (1 standard drink = 0.6 oz pur e alcohol) OCCASIONAL Comments Unknown Sex and Gender Information Value Date Recorded Sex Assigned at Not on file Legal Sex Female 6:03 PM CDT Gender Identity Not on file Sexual Orientation Not on file documented as of this encounter Plan of Treatment Not on file documented as of this encounter Procedures Procedure Name Priority Date/Time Associated Diagnosis Comments HEMOGLOBIN, GLYCOSYLATED Routine 07/07/2022 COMPREHENSIVE METABOLIC PANEL Routine 07/07/2022 LIPID PANEL Routine 07/07/2022 THYROID STIM HORMONE TSH Routine 07/07/2022 MAGNESIUM Routine 07/07/2022 documented in this encounter Results * COMPREHENSIVE METABOLIC PANEL (07/07/2022) SODIUM S/P/B 137 GLUCOSE 87 mg/dL AST 18 BUN 29 CREATININE S/P/B 0.8 0.5 - 1.0 CALCIUM S/P/B 9.8 POTASSIUM S/P/B 3.6 CHLORIDE S/P/B 99 ALT 20 Narrative Resulting Agency Comment us Default History Genericprovider LABORATORY Final Result * LIPID PANEL (07/07/2022) Pathologist [facility] CHOLESTEROL 242 TRIGLYCERIDES 248 HDL 64 LDL (CALCULATED) 128 Narrative Resulting Agency Comment us Default History Genericprovider LABORATORY Final Result * HEMOGLOBIN, GLYCOSYLATED (07/07/2022) Pathologist [facility] HGB A1C 5.7 % Narrative Resulting Agency Comment us Default History Genericprovider LABORATORY Final Result * THYROID STIM HORMONE, TSH (07/07/2022) Pathologist [facility] TSH 2.11 Narrative Resulting Agency Comment us Default History Genericprovider LABORATORY Final Result * MAGNESIUM (07/07/2022) Pathologist [facility] MAGNESIUM 1.9 Narrative Resulting Agency Comment us Default History Genericprovider LABORATORY Final Result documented in this encounter Visit Diagnoses Not on filedocumented in this encounter Care Teams Chief Information Security Officer Relationship Specialty Start Date End Date Sharlene Bustamante MD [address] [place] [address] PCP - General FAMILY PRACTICE 07/04/21 documented as of this encounter
--- OUTSIDE RECORDS SUMMARY | 2024-06-08 13:52 | XMS_ITS | Encounter Summary ---
Author Organization [facility] Address [address] [place] [address] Phone Care Team Providers Care Coil Machine Supervisor Name Role Phone Provider, Unknown Primary Care Provider Sharlene Sofia MD Primary Care Provider + Mendoza Oconnor PAC Primary Care Provider [phone] Jose Juan Gonzalez MD Primary Care Provider [phone] Encounter Details Date Type Department Care Team (Late st Contact Info) Description 10/23/2021 Lab Requisition [facility] [address] [place] [address] Gabriela Medina, CORPORATE TRAINER, ARTIFICIAL BREEDING RANCH SUPERVISOR [address] [place] [address] Encounter for pre-employment examination Social History Tobacco Use Types Packs/Day Years Used Date Smoking Tobacco: Never Assessed Comments Unknown Sex and Gender Information Value Date Recorded Sex Assigned at Not on file Legal Sex Female 10:59 PM CDT Gender Identity Female 02/12/2023 3:39 PM CDT Sexual Orientation Not on file COVID-19 Exposure Response Date Recorded In the last 10 days, have yo u been in contact with someone who was confirmed or suspected to have Coronavirus/COVID-19? Unable to assess 10/23/2021 8:39 AM CDT documented as of this encounter Plan of Treatment Not on file documented as of this encounter Procedures Procedure Name Priority Date/Time Associated Diagnosis Comments MMRV PANEL Routine 10/23/2021 8:45 AM CDT Encounter for pre-employment examination MUMPS IGG Routine 10/23/2021 8:45 AM CDT Encounter for pre-employment examination HERPES ZOSTER (VARICELLA) IGG Routine 10/23/2021 8:45 AM CDT Encounter for pre-employment examination RUBEOLA (MEASLES) IGG Routine 10/23/2021 8:45 AM CDT Encounter for pre-employment examination RUBELLA IMMUNITY IGG Routine 10/23/2021 8:45 AM CDT Encounter for pre-employment examination documented in this encounter Results * HERPES ZOSTER (VARICELLA) IGG (10/23/2021 8:45 AM CDT) VARICELLA ZOSTER IGG 7.7 >=1.1 AI 10/24/2021 9:08 AM CDT [facility] Blood No Phlebotomy Charged / Unknown 10/23/2021 8:45 AM CDT 10/23/2021 12:23 PM CDT Narrative [facility] - 10/24/2021 9:08 AM CDT <= 0.8 Negative. No detectable VZV IgG antibody. 0.9 - 1.0 Equivocal >=1.1 Positive Antibody testing was performed by multiplex flow immunoassay on the [employer] platform. us Gabriela Medina CORPORATE TRAINER, ARTIFICIAL BREEDING RANCH SUPERVISOR IMMUNOLOGY ORDERABL ES Final Result [facility] [address] [place] [address], * RUBEOLA (MEASLES) IGG (10/23/2021 8:45 AM CDT) MEASLES AB IGG 5.7 >=1.1 AI 10/24/2021 9:08 AM CDT [facility] Blood No Phlebotomy Charged / Unknown 10/23/2021 8:45 AM CDT 10/23/2021 12:23 PM CDT Narrative [facility] - 10/24/2021 9:08 AM CDT <= 0.8 Negative. No detectable Measles IgG antibody. 0.9 - 1.0 Equivocal >=1.1 Positive Antibody testing was performed by multiplex flow immunoassay on the [employer] platform. us Gabriela Medina APRN, CNP IMMUNOLOGY ORDERABL ES Final Result Performing Organization Address City/[facility] Co de Phone Number [facility] [address] [place] [address], [place] * RUBELLA IMMUNITY IGG (10/23/2021 8:45 AM CDT) RUBELLA IMMUNITY Immune Immune, Invalid 10/24/2021 9:08 AM CDT [facility] Blood No Phlebotomy Charged / Unknown 10/23/2021 8:45 AM CDT 10/23/2021 12:23 PM CDT Narrative [facility] - 10/24/2021 9:08 AM CDT Antibody testing was performed by multiplex flow immunoassay on the [employer] platform. us Gabriela Medina APRN, CNP CHEMISTRY ORDERABLE S Final Result Performing Organization Address [facility] Co de Phone Number [facility] [address] [place] [address], [place] * MUMPS IGG (10/23/2021 8:45 AM CDT) Mumps Ab IgG 1.7 >=1.1 AI 10/24/2021 9:08 AM CDT [facility] Blood No Phlebotomy Charged / Unknown 10/23/2021 8:45 AM CDT 10/23/2021 12:23 PM CDT Narrative [facility] - 10/24/2021 9:08 AM CDT <= 0.8 Negative. No detectable Mumps IgG antibody. 0.9 - 1.0 Equivocal >=1.1 Positive Antibody testing was performed by multiplex flow immunoassay on the [employer] platform. us Gabriela Medina APRN, VINAY IMMUNOLOGY ORDERABL ES Final Result [facility] [address] [place] [address], [place] documented in this encounter Visit Diagnoses Diagnosis Encounter for pre-employment examination Health examination of defined subpopulation documented in this encounter Additional Health Concerns Infection Onset Date Last Indicated Resolved Time COVID - 19 03/12/2022 03/16/2022 03/26/2022 12:1 6 AM IT LEAD Influenza 03/16/2022 03/16/2022 03/23/2022 12:1 6 AM IT LEAD COVID - 19 04/25/2022 04/25/2022 05/05/2022 12:1 9 AM IT LEAD Respiratory Rule Out - RPA 10/26/2022 10/26/2022 0 10/26/2022 2:24 PM CDT COVID - 19 10/26/2022 10/26/2022 11/05/2022 12:1 6 AM CDT COVID - 19 12/09/2022 12/09/2022 12/19/2022 12:1 6 AM CDT COVID - 19 11/03/2023 11/03/2023 11/04/2023 12:1 7 AM CDT documented as of this encounter Care Teams Coil Machine Supervisor Relationship Specialty Start Date End Date Provider, Unknown UNKNOWN PCP - General 10/23/21 09/27/22 Sharlene Curiel MD [address] [place] [address] PCP - General Family Medicine 09/28/22 10/13/22 Mendoza Oconnor PAC [address] [place] [address] PCP - General Physician Title Assistant 10/14/22 03/29/23 Jose Juan Gonzalez MD [address] [place] [address] PCP - General Internal Medicine 03/30/23 documented as of this encounter
--- OUTSIDE RECORDS SUMMARY | 2024-06-08 13:52 | XMS_ITS | Referral Summary ---
Author Organization [facility] Address [address] [address] Care Team Providers Care Re Etcher Name Role Phone Jose Juan Gonzalez MD Primary Care Provider [phone] Source Comments [facility],non-[facility] and Associated Physician Practices is amultiple site organization consisting of ambulatory clinics and hospital sitesin [place], [place], [place] and [place]. This disclosure is being madepursuant to the Care Everywhere program and may not contain all information available regarding this patient. Last updated 18.[facility] Encounters Date Type Department Care Team Description 06/08/2024 9:30 AM BASE REMOVER Clinical Support [facility] V[facility] [address], [address] [address] Candie Villalobos MD Encounter for loop recorder check ; Cerebrovascular accident (CVA), unspecified mechanism (HCC) 05/04/2024 9:30 AM BASE REMOVER Clinical Support [facility] & V[facility] [address], [address] [address] Candie Villalobos MD Encounter for loop recorder check ; Cerebrovascular accident (CVA), unspecified mechanism (HCC) 03/30/2024 9:30 AM BASE REMOVER Clinical Support [facility] Vascular [address], [address] [address] Candie Villalobos MD Encounter for loop recorder check ; Cerebrovascular accident (CVA), unspecified mechanism (HCC) from Last 3 Months Allergies No known active allergies Medications * Be aware that medications may not be up to date on this document. Alwaysverify current medications with the patient. Medication Sig Dispensed Refills Start Date End Date Status vitamin D3 (Cholecalciferol) 25 MCG (1000 UNITS) tablet Take 1 (one) tablet by mouth every evening Active rosuvastatin (Crestor) 10 MG tablet Take 1 (one) tablet by mouth once daily 30 tablet 2 01/10/2023 Active hydrALAZINE (Apresoline) 100 MG tablet Take 1 (one) tablet by mouth 3 times daily 01/07/2023 Active losartan (Cozaar) 100 MG tablet Take 1 (one) tablet by mouth once daily 12/08/2022 Active zolpidem (Ambien) 10 MG tablet Take 1 (one) tablet by mouth nightly as needed for Insomnia 02/15/2023 Active hydroCHLOROthiazid e (Hydrodiuril) 25 MG tablet 0.5 (one-half) tablet 05/01/2023 Act dilan Zepbound 2.5 MG/0.5ML injection ADMINISTER 2.5 MG UNDER THE SKIN WEEKLY FOR 4 WEEKS 07/27/2023 Active metoprolol succinate XL 24hr (Toprol XL) 100 MG tablet Take 1 (one) tablet by mouth once daily 90 tablet 3 12/01/2023 Active apixaban (Eliquis) 5 MG tabletIndications: Cerebrovascular accident secondary to Atrial Fibrillation Take 1 (one) tablet by mouth 2 times daily Reasons: Cerebrovascular accident secondary to Atrial Fibrillation 60 tablet 5 12/24/2023 Active cetirizine (ZyrTEC) 10 MG tablet Take 1 (one) tablet by mouth once daily Active ondansetron, disintegrating, (Zofran ODT) 8 MG tablet Take 1 (one) tablet by mouth every 8 hours as needed 01/05/2024 Active promethazine (Phenergan) 25 MG tablet Take 1 (one) tablet by mouth 3 times daily as needed Active Active Problems Problem Noted Date Diagnosed Date Sinus tachycardia 01/23/2024 Cerebrovascular accident (CVA), unspecified [facility] anism 01/08/2023 Social History Tobacco Use Types Packs/Day Years Used Date Smoking Tobacco: Never Smokeless Tobacco: Never Tobacco Cessation:Counseling Given: Not Answered Overall Financial Resource Strain (CARDIA) Answe r Date Recorded How hard is it for you to pa y for the very basics like food, housing, medical care, and heating? Not hard at all 01/09/2023 [facility] Occup[facility] ional [facility] - Occupational Stress [...] place to sleep or slept in a mcfp (including now)? No 01/09/2023 Sex and Gender [...] Mass Index 32.01 02/15/2024 1:12 PM CDT Functional Status Functional Status Response Date of Assess ment Is person deaf or have serious hearing difficult y? No 01/09/2023 Is person blind or have serious difficulty seein g? No 01/09/2023 Does person have serious dif ficulty walking/climbing stairs? No 01/09/2023 Does person have difficulty dressing/bathing? No 01/09/2023 Does person have difficulty doing errands alone? No 01/09/2023 Cognitive Status Response Date of Assessm ent Does person have difficulty concentrating/remembering/making decisions? No 01/09/2023 Plan of Treatment Upcoming Encounters Date Type Department Care Team (Late st Contact Info) Description 06/20/2024 12:10 PM BASE REMOVER Office Visit [facility] [address] [address] [place] [address] [address] [place] [phone] 07/13/2024 9:30 AM CDT Clinical Support [facility] Vascular Care [address] [place] [address] [place] [address] [address] [place] [phone] 08/02/2024 10:20 AM CDT Office Visit [facility] Care [address] [place] [address] [place] [address] [address] [place] [phone] 08/17/2024 9:30 AM CDT Clinical Support [facility] [address] [address] [place] [address] [address] [place] [phone] 09/21/2024 9:30 AM CDT Clinical Support [facility] [address] [facility], [address] [place] [address] [place] [address] [facility] [facility] [address] [place] [phone] 10/26/2024 9:30 AM CDT Clinical Support [facility] Vascular [facility] [address] [facility], [facility] [address] [place] [address] [place] [address] [facility] [address] [place] [place] [phone] Medical Devices Implanted Type Area Nurse Outreach Case Manager Device Identifier Shelf Expiration Date Model / Serial / Lot Sys Crd Mntr Rvl Linq Ii Implanted:Qty: 1 on 01/10/2023 by Candie Villalobos MD at [facility] [id number] 04/03/2024 [id number] / [id number] / NA Procedures Procedure Name Priority Date/Time Associated Diagnosis Comments [facility] CLINIC CHECK Routine 06/08/2024 6:31 AM BASE REMOVER Cerebrovascular accident (CVA), unspecified mechanism (HCC) Encounter for loop recorder check [facility] CLINIC CHECK Routine 05/09/2024 6:51 AM BASE REMOVER Cerebrovascular accident (CVA), unspecified mechanism (HCC) Encounter for loop recorder check BASIC METABOLIC PANEL (CALCIUM TOTAL) AM Draw 01/10/2023 4:27 AM CDT from Last 3 Months or Most Recently Relevant to Health Maintenance Results * (ABNORMAL) BASIC METABOLIC PANEL (CALCIUM TOTAL) (01/10/2023 4:27 AM CDT) [facility] Glucose 101 70 - 105 mg/dL 01/10/2023 4:53 AM CDT [facility] Sodium 142 136 - 145 mmol/L 01/10/2023 4:53 AM CDT [facility] Potassium 4.3 3.5 - 5.1 mmol/L 01/10/2023 4:53 AM CDT [facility] Chloride 107 98 - 107 mmol/L 01/10/2023 4:53 AM CDT [facility] CO2 27 22 - 29 mmol/L 01/10/2023 4:53 AM CDT [facility] Calcium 9.6 8.4 - 10.4 mg/dL 01/10/2023 4:53 AM CDT [facility] Anion Gap 8 6 - 16 mmol/L 01/10/2023 4:53 AM CDT [facility] BUN 13 7 - 26 mg/dL 01/10/2023 4:53 AM CDT [facility] Creatinine 0.80 0.57 - 1.11 mg/dL 01/10/2023 4:53 AM CDT [facility] eGFR by CKD-EPI 81(L) >=90 mL/min/1.7 3 m2 01/10/2023 4:53 AM CDT [facility] Blood BLOOD SPECIMEN / Unknown Venipuncture / Unknown 01/10/2023 4:27 AM CDT 01/10/2023 4:32 AM CDT Shahrzad Hoff MD [facility] Organization Address City/State/ZIP Co de Phone Number [facility] [address] [place] [address] from Last 3 Months or Most Recently Relevant to Health Maintenance Advance Directives * Full Code (Latest Code Status on File) Date Activated Date Inactivated Comments 01/08/2023 6:40 PM 01/10/2023 1:59 PM Care Teams Re Etcher Relationship Specialty Start Date End Date Jose Juan Gonzalez MD [address] [place] [address] PCP - General Internal Medicine 01/10/23
--- OUTSIDE RECORDS SUMMARY | 2024-06-08 13:52 | XMS_ITS ---
Author Organization [facility] Address [address] [place] [phone] Care Team Providers Care Drawing Press Operator Name Role Phone Shiloh Brandt Unavailable [phone] Jose Juan Gonzalez Unavailable Unavailable REASON FOR VISIT Asthma follow-up Encounters Encounter Location Date Provider Diagnosis [facility] [address] [place] [address] 09/15/2023 Shiloh Brandt Plan Of Treatment No Information Progress Notes * Nanette PLASENCIADOB: (68 yo F)Acc No.[id number]:09/15/2023 Asthma F/U Patient: Nanette RICO Provider: Manuel Brandt MD :1955 A ge:67 Y S ex:Female Date:09/15/2023 Address:[address] [place], [place] [phone] Subjective: * Chief Complaints: * 1 . Asthma follow-up. * Medical History: Objective: * Vitals: Assessment: Plan: * Treatment: * Billing Information: * Visit Code: * Procedure Codes: * Electronic signature of Jo-Ann Brandt MD on 06/08/2024 at 06:20 AM PROFESSOR OF HISTORY Sign off status: Pending * Provider: Manuel Brandt MD Date: 0 09/15/2023 Generated for Luly ventura/Fidelia/eThawasmitting on: 0 06/08/2024 06:20 AM PROFESSOR OF HISTORY
--- OUTSIDE RECORDS SUMMARY | 2024-06-08 13:52 | XMS_ITS | Encounter Summary ---
Author Organization [facility] Address [address] [place] [address] Phone Care Team Providers Care Seam Stayer Name Role Phone Jose Juan Gonzalez MD Primary Care Provider [phone] Encounter Details Date Type Department Care Team (Late st Contact Info) Description 11/30/2023 Transcribe Orders [facility] [address] [place] [address] Jose Juan Gonzalez MD [address] [facility] [place] [address] Other fatigue (Primary Dx) Social History Tobacco Use Types Packs/Day Years Used Date Smoking Tobacco: Never Smokeless Tobacco: Never Alcohol Use Standard Drinks/Week Comments Yes 0 (1 standard drink = 0.6 oz pur e alcohol) wine/very occassional [facility] Utilities Answer Date Recorded In the past 12 months has [employer], gas, oil, or water [employer] threatened to shut off services in your home? No 11/04/2023 Social Connection and Isolation Panel [NHANES] A nswer Date Recorded In a typical week, how many times do you talk on the phone with family, friends, or neighbors? Patient declined 11/04/2023 How often do you get togethe r with friends or relatives? Patient declined 11/04/2023 How often do you attend pentecostal or moravian serv ices? Patient declined 11/04/2023 Do you belong to any clubs o r organizations such as pentecostal groups, unions, fraternal or athletic groups, or school groups? Patient declined 11/04/2023 How often do you attend meet ings of the clubs or organizations you belong to? Patient declined 11/04/2023 Are you , , di vorced, , never , or living with a partner? Never 11/04/2023 AUDIT-C Answer Date Recorded Q1: How often do you have a drink containing alc ohol? Monthly or less 11/04/2023 Q2: How many drinks containi ng alcohol do you have on a typical day when you are drinking? Patient declined 11/04/2023 Q3: How often do you have si x or more drinks on one occasion? Patient declined 11/04/2023 Overall Financial Resource Strain (CARDIA) Answe r Date Recorded How hard is it for you to pa y for the very basics like food, housing, medical care, and heating? Somewhat hard 11/04/2023 [facility] - Occupational Stress Questionnaire Answer Date Recorded Do you feel stress - tense, restless, nervous, or anxious, or unable to sleep at night because your mind is troubled all the time - these days? Patient declined 11/04/2023 Exercise Vital Sign Answer Date Recorde d On average, how many days pe r week do you engage in moderate to strenuous exercise (like a brisk walk)? Patient declined On average, how many minutes do you engage in exercise at this level? Patient declined 11/04/2023 Hunger Vital Sign Answer Date Recorded Within the past 12 months, y ou worried that your food would run out before you got the money to buy more. Never true 11/04/19 24 Within the past 12 months, t he food you bought just didn't last and you didn't have money to get more. Never true 11/04/2023 PRAPARE - Transportation Answer Date Re corded In the past 12 months, has l ack of transportation kept you from medical appointments or from getting medications? No 10/24 In the past 12 months, has l ack of transportation kept you from meetings, work, or from getting things needed for daily living? No 11/04/2023 Housing Stability Vital Sign Answer Lester e Recorded In the last 12 months, was t here a time when you were not able to pay the mortgage or rent on time? No 11/04/2023 In the past 12 months, how m any times have you moved where you were living? 0 11/04/2023 At any time in the past 12 m [facility], were you homeless or living in a prison (including now)? No 11/04/2023 Sexually Active Control Partners Comments Not Currently Comments No Sex and Gender Information Value Date Recorded Sex Assigned at Not on file Legal Sex Female 10:59 PM CDT Gender Identity Female 02/12/2023 3:39 PM CDT Sexual Orientation Not on file documented as of this encounter Plan of Treatment Not on file documented as of this encounter Goals Goal Patient Goal Type Associated Problems Recent Progress Patient-Stated? Author I have lost a lot of who I was since the stroke. It's like grieving that part. 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 Anticipated Time Frame for Goal Completion: 6 months Goal Reviewed with: patient Readiness to change: Ready to change Department associated with goal: [facility] Steps to achieve goal: 1. will attend at least 6 counseling sessions either individual and/or group 1x/mo, engaging in each session by verbalizing and processing thoughts and feelings related to grief and loss. 2. will report reduced feelings of guilt, resentment, or anger. 3. will identify and implement at least two outlets for grief and or coping skills to aid in managing problematic responses to grief. documented as of this encounter Results * CORTISOL (12/01/2023 4:57 PM CDT) CORTISOL 8.7 mcg/dL 12/01/2023 6:3 7 PM CDT [facility] Blood Venipuncture / Unknown 12/01/2023 4:57 PM CDT 12/01/2023 5:57 PM CDT Narrative [facility] - 12/01/2023 6:37 PM CDT AM: 4 TO 19 mcg/dL PM: Approx. Half of AM Value us Jose Juan Gonzalez MD CHEMISTRY ORDERABLES Final Res ult Performing Organization Address City/[facility] Co de Phone Number [facility] [place] [address] * CORTISOL (12/01/2023 6:20 AM CDT) CORTISOL 13.1 mcg/dL 12/01/2023 9:1 3 AM CDT [facility] Blood Venipuncture / Unknown 12/01/2023 6:20 AM CDT 12/01/2023 8:13 AM CDT Narrative [facility] - 12/01/2023 9:13 AM CDT AM: 4 TO 19 mcg/dL PM: Approx. Half of AM Value us Jose Juan Gonzalez MD CHEMISTRY ORDERABLES Final Res ult Performing Organization Address [facility] de Phone Number [facility] [place] [address] documented in this encounter Visit Diagnoses Diagnosis Other fatigue- Primary documented in this encounter Care Teams Seam Stayer Relationship Specialty Start Date End Date Jose Juan Gonzalez MD [address] [place] [address] PCP - General Internal Medicine 03/30/23 documented as of this encounter
--- OUTSIDE RECORDS SUMMARY | 2024-06-08 13:52 | XMS_ITS | Clinical Summary ---
Author Organization [facility] Address [address] [place] [address] Care Team Providers Care Media Services Director Name Role Phone Sharlene Bustamante MD Primary Care P rovider Allergies No known active allergies Medications losartan 100 MG tablet Take 50 mg by mouth daily. 06/06/2021 Active metoprolol succinate ER 25 MG 24 hr tablet Take 25 mg by mouth daily. 01/26/2021 Active buPROPion XL 150 MG 24 hr tablet 07/02/2021 Act dilan hydroCHLOROthiaz sekou 25 MG tablet Take 25 mg by mouth every morning. Active Social History Tobacco Use Types Packs/Day Years [...] Sign Reading Time Taken Comments Blood Pressure 104/66 07/04/2021 8:40 AM ADULT NEUROLOGIST Pulse 53 07/04/2021 8:40 AM ADULT NEUROLOGIST Temperature 36.2 C (97.2 F) 07/04/2021 6:57 AM ADULT NEUROLOGIST Respiratory Rate 11 07/04/2021 8:40 AM ADULT NEUROLOGIST Oxygen Saturation 96% 07/04/2021 8:40 AM ADULT NEUROLOGIST Inhaled Oxygen Concentration - - Weight 74.8 kg (165 lb) 07/04/2021 6:57 AM ADULT NEUROLOGIST Height 157.5 cm (5' 2 ) 07/04/2021 6:57 AM ADULT NEUROLOGIST Body Mass Index 30.18 07/04/2021 6:57 AM ADULT NEUROLOGIST Plan of Treatment Health Maintenance Due Date Last Done Comments Hepatitis C 1974 DTaP, Tdap and Td Vaccines (1 - Tdap) 10/16/1975 Mammogram Screening 1996 AAA SCREENING 2021 Dexa Scan (General) 2021 Pneumococcal Vaccine: 65+ Years (2 of 2 - PPSV23 or PCV20) 2021 08/10/2016 COVID-19 Vaccine ( - season) 2023 02/12/2022, 01/15/2021, 05/30/2020, Additional history exists Influenza Adult (#1) 2024 02/12/2022, 03/07/2021, 01/12/2020, Additional history exists Colorectal Cancer Screening Colonoscopy (10 Years) 07/05/2031 07/04/2021, 07/04/2021 RSV Immunization or 60+ Years (1 - 1-dose 75+ series) 10/16/2031 Zoster Vaccines Completed 12/07/2018, 08/11/2017 Meningococcal B Vaccine Aged Out No l onger eligible based on patient's age to complete this topic Meningococcal Vaccine Aged Out No liza kristen eligible based on patient's age to complete this topic RSV Immunizations Under 20 Months Aged Out No longer eligible based on patient's age to complete this topic Procedures Procedure Name Priority Date/Time Associated Diagnosis Comments COLONOSCOPY Routine 07/04/2021 6:55 AM ADULT NEUROLOGIST from Last 3 Months or Most Recently Relevant to Health Maintenance Results * Colonoscopy (07/04/2021 6:55 AM ADULT NEUROLOGIST) Bebeto De La Torre MD GI PROCEDURE ORDERABLES Final Re sult from Last 3 Months or Most Recently Relevant to Health Maintenance Insurance [facility] Care Teams Media Services Director Relationship Specialty Start Date End Date Sharlene Bustamante MD [address] [place] [address] PCP - General FAMILY PRACTICE 07/04/21
--- OUTSIDE RECORDS SUMMARY | 2024-06-08 13:52 | XMS_ITS | Encounter Summary ---
Author Organization [facility] Address [address] [place] [address] Phone Care Team Providers Care Sustainability Purchasing Agent Name Role Phone Jose Juan Gonzalez MD Primary Care Provider [phone] Encounter Details Date Type Department Care Team (Late st Contact Info) Description 11/29/2023 Transcribe Orders [facility] [address] [place] [id number] Jose Juan Gonzalez MD [address] [place] [address] Nausea and vomiting, unspecified vomiting type (Primary Dx); Other fatigue Social History Tobacco Use Types Packs/Day Years Used Date Smoking Tobacco: Never Smokeless Tobacco: Never Alcohol Use Standard Drinks/Week Comments Yes 0 (1 standard drink = 0.6 oz pur e alcohol) wine/very occassional [facility] Utilities Answer Date Recorded In the past 12 months has [employer] electric, gas, oil, or water company threatened to shut off services in your home? No 11/04/2023 Social Connection and Isolation Panel [NHANES] A nswer Date Recorded In a typical week, how many times do you talk on the phone with family, friends, or neighbors? Patient declined 11/04/2023 How often do you get togethe r with friends or relatives? Patient declined 11/04/2023 How often do you attend jew or judaism serv ices? Patient declined 11/04/2023 Do you belong to any clubs o r organizations such as jew groups, unions, fraternal or athletic groups, or [...] medical care, and heating? Somewhat hard 11/04/2023 [facility] - Occupational Stress Questionnaire Answer Date [...] any time in the past 12 m [facility], were you homeless or living in a custodial (including now)? No 11/04/2023 Sexually Active Control Partners Comments Not Currently Comments No Sex and Gender Information Value Date Recorded Sex Assigned at Not on file Legal Sex Female 10:59 PM CDT Gender Identity Female 02/12/2023 3:39 PM CDT Sexual Orientation Not on file documented as of this encounter Plan of Treatment Scheduled Orders Name Type Priority Associated Diagnoses Orde r Schedule BASIC METABOLIC PANEL W/ CALCIUM TOTAL Lab Routine Nausea and vomiting, unspecified vomiting type Other fatigue Expected: 11/29/2023, Expires: 11/28/2024 documented as of this encounter Goals Goal Patient Goal Type Associated Problems Recent Progress Patient-Stated? Author I have lost a lot of who I was since the stroke. It's like grieving that part. 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 Anticipated Time Frame for Goal Completion: 6 months Goal Reviewed with: patient Readiness to change: Ready to change Department associated with goal: [facility] Steps to achieve goal: [...] to grief. documented as of this encounter Visit Diagnoses Diagnosis Nausea and vomiting, unspecified vomiting type- Primary Other fatigue documented in this encounter Care Teams Sustainability Purchasing Agent Relationship Specialty Start Date End Date Jose Juan Gonzalez MD [address] [place] [address] PCP - General Internal Medicine 03/30/23 documented as of this encounter
--- OUTSIDE RECORDS SUMMARY | 2024-06-08 13:52 | XMS_ITS | Clinical Summary ---
Author Organization [facility] Address [address] [place] [address] [place] [address] Care Team Providers Care Customs Brokerage Agent Name Role Phone Jose Juan Gonzalez MD Primary Care Provider [phone] Allergies No known active allergies Medications Eliquis 5 mg tablet Take 1 tablet (5 mg total) by mouth 2 (two) times a day 4 Active cholecalciferol (VITAMIN D-3) 1,000 unit Take 1 tablet/capsu le (1,000 Units total) by mouth daily Active cetirizine (ZyrTEC) 10 mg tablet Take 1 tablet (10 mg total) by mouth daily Active hydrALAZINE (APRESOLINE) 100 mg tablet Take 1 tablet (100 mg total) by mouth 2 (two) times a day 3 Active hydroCHLOROthiazide (HYDRODIURIL) 25 mg tablet Take 0.5 tablets (12.5 mg total) by mouth daily 4 Active losartan (COZAAR) 100 mg tablet Take 1 tablet (100 mg total) by mouth daily 2 Active metoprolol XL (TOPROL-XL) 100 mg 24 hr tablet Take 1 tablet (100 mg total) by mouth daily Active ondansetron ODT (ZOFRAN-ODT) 8 mg disintegrating tablet Take 1 tablet (8 mg total) by mouth every 8 (eight) hours as needed 4 Active promethazine (PHENERGAN) 25 mg tablet Take 1 tablet (25 mg total) by mouth 3 (three) times a day as needed Active rosuvastatin (Crestor) 10 mg tablet Take 1 tablet (10 mg total) by mouth daily 3 Active Zepbound 15 mg/0.5 mL pen injector Inject 0.5 mL (15 mg total) under the skin daily 4 Active zolpidem (AMBIEN) 10 mg tablet Take 1 tablet (10 mg total) by mouth nightly as needed for sleep 3 Active Active Problems Problem Noted Date Diagnosed Date Class 1 obesity with body ma ss index (BMI) of 32.0 to 32.9 in adult 05/11/2024 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 BMI 32.0-32.9,adult 04/13/2024 Nutritional counseling 02/16/2024 Sinus tachycardia 01/23/2024 Palpitation 11/04/2023 Adjustment disorder 02/23/2023 Long COVID 02/05/2023 COVID-19 jorge l marin manifesting chronic fatigue 02/05/2023 Disrupted sleep-wake cycle 02/05/2023 Vaccine counseling 02/05/2023 History of depression 02/05/2023 COVID-19 jorge l marin manifes ting chronic decreased mobility and endurance 02/05/2023 Weight gain 02/05/2023 Cerebrovascular accident (CVA) 01/08/2023 Overview (04/13/2024): loop recorder in place HTN (hypertension) 09/28/2022 Depression 09/28/2022 HLD (hyperlipidemia) 09/28/2022 Acute renal failure 09/27/2022 Encounters Date Type Department Care Team Description 05/25/2024 1:30 PM POWDERED METAL SUPERVISOR Clinical Support [facility] [address] [place] [address] Medical Office Building [address] [place] [address] Rosi Lara NP BMI 32.0-32.9,adult (Primary Dx); Class 1 obesity with body mass index (BMI) of 32.0 to 32.9 in adult, unspecified obesity type, unspecified whether serious comorbidity present 05/18/2024 1:30 PM POWDERED METAL SUPERVISOR Clinical Support [facility] [address] [place] [address] Medical Office [facility] [address] [place] [address] Rosi Lara NP Post-acute sequelae of COVID-19 (PASC) (Primary Dx); BMI 32.0-32.9,adult; Hypertension, unspecified type 05/17/2024 4:00 PM POWDERED METAL SUPERVISOR Telemedicine [facility] [address] [place] [address] Office [facility] [address] [place] [address] Maria Eugenia Chacon, CASEY Adjustment disorder with depressed mood (Primary Dx) 05/11/2024 1:30 PM POWDERED METAL SUPERVISOR Clinical Support [facility] [address] [place] [address] Office [facility] [address] [place] [phone] Rosi Lara NP BMI 32.0-32.9,adult (Primary Dx); Class 1 obesity with body mass index (BMI) of 32.0 to 32.9 in adult, unspecified obesity type, unspecified whether serious comorbidity present 04/28/2024 8:30 AM POWDERED METAL SUPERVISOR Office Visit [facility] [address] [place] [address] Office [facility] [address] [place] [address] Maria Eugenia Chacon, CLINICAL RESEARCH MONITOR Adjustment disorder with depressed mood (Primary Dx) 04/13/2024 8:00 AM POWDERED METAL SUPERVISOR Office Visit [address] Office [facility] [address] [place] [address] Rosi Lara NP Post-acute sequelae of COVID-19 (PASC) (Primary Dx); BMI 32.0-32.9,adult; Weight gain 04/11/2024 8:00 AM POWDERED METAL SUPERVISOR Therapy [facility] [address] [place] [phone] Blanca Albright, DPT COVID-19 long elizauler manifesting chronic fatigue 04/11/2024 Plan of Care Documentation [facility] [address] [place] [phone] 04/04/2024 8:00 AM POWDERED METAL SUPERVISOR Office Visit [facility] [address] [place] [address] Medical Office Building [address] [place] [address] Maria Eugenia Chacon, CLINICAL RESEARCH MONITOR Adjustment disorder, unspecified type (Primary Dx) 03/21/2024 9:30 AM POWDERED METAL SUPERVISOR Office Visit [facility] [address] [place] [address] Office [facility] [address] [place] [address] Maria Eugenia Chacon, CLINICAL RESEARCH MONITOR Adjustment disorder, unspecified type (Primary Dx) 03/10/2024 Telephone [facility] [address] [place] [address] Medical Office Building [address] [place] [phone] Yoly Cleaning RN from Last 3 Months Social History Tobacco Use Types Packs/Day Years Used Date Smoking Tobacco: Former Cigarettes Comments Unknown Sex and Gender Information Value Date Recorded Sex Assigned at Not on file Legal Sex Female 12:39 PM CDT Gender Identity Female 01/27/2023 10:36 AM CDT Sexual Orientation Straight 01/27/2023 10 :36 AM CDT Obstetrics History Last Filed Vital Signs Vital Sign Reading Time Taken Comments Blood Pressure 118/75 04/13/2024 7:57 AM POWDERED METAL SUPERVISOR Pulse 78 04/13/2024 7:57 AM POWDERED METAL SUPERVISOR Temperature 36.8 C (98.2 F) 02/14/2024 8:00 AM CDT Respiratory Rate - - Oxygen Saturation 98% 06/21/2023 10: 19 AM POWDERED METAL SUPERVISOR Inhaled Oxygen Concentration - - Weight 83.4 kg (183 lb 12.8 oz) 04/13/2024 7:57 AM POWDERED METAL SUPERVISOR Height 160 cm (5' 3 ) 04/13/2024 7:57 AM POWDERED METAL SUPERVISOR Body Mass Index 32.56 04/13/2024 7:57 AM POWDERED METAL SUPERVISOR Plan of Treatment Health Maintenance Due Date Last Done Comments Breast Cancer Screening-Mammogram 1955 Colon Cancer Screening-Colonoscopy 1955 Depression Screening 1955 Hepatitis C Screening 1955 Osteoporosis Screening-Bone Density Scan 1955 Hepatitis B Screening 1974 Well Visit 65+ 2021 Covid-19 Vaccine (2023-2 5 season) 2023 02/12/2022, 01/15/2021, 05/30/2020, Additional history exists Influenza Vaccine (#1) 2023 2, 03/07/2021, 01/12/2020, Additional history exists Fall Risk Assessment 04/09/2024 04/09/2023 DTaP/Tdap/Td Vaccine (2 - Td or Tdap) 07/07/2032 07/07/2022 Zoster Vaccine Completed 12/07/2018, 08/11/2017 Pneumococcal vaccine 65+ Completed 07/07/2022, 07/25 Insurance MEDICARE Care Teams Customs Brokerage Agent Relationship Specialty Start Date End Date Jose Juan Gonzalez MD [address] [facility] [address] [place] [address] PCP - General Internal Medicine 01/19/23 Valerie Garcia LCSW [address] [facility] [address] Forger Helper Infectious Diseases 02/01/23
--- OUTSIDE RECORDS SUMMARY | 2024-06-08 13:52 | XMS_ITS | Patient Health Record ---
Author Organization [facility] Address [address] [place] [address] Care Team Providers Care Ink Technician Name Role Phone Haven Menard Unavailable [phone] Allergies Allergen (clinical drug ingredient) Drug/Non Drug Allergy documented on EMR Reaction Allergy Type Onset Date Status No Known Drug Allergies NKDA (uncoded) Unknown Allergy Active No Non-Medication Allergies NNMA (uncoded) Unknown Allergy Active Up to date (uncoded) Unknown Allergy Active Reason For Referral No Information Medications Medication SIG (Take, Route, Fr equency, Duration) Notes Start Date End Date Status Zolpidem Tartrate 10 TAKE 1 TABLET BY MO UT EVERY NIGHT AT BEDTIME for 90 Active chondroitin-glucosamine 03/14/2014 Active Pravachol 03/14/2014 Active Dufur 03/14/2014 Active Benicar 03/14/2014 Active Vitamin D 03/14/2014 Active Promethazine HCl 25 MG 1 tablet as neede d Orally three times daily PRN for 90 days 01/17/2024 Active prevastatin Active Biotin 03/14/2014 Active Losartan Potassium-HCTZ Active Encounters Encounter Location Date Provider Diagnosis [facility] [address] [place] [address] 01/17/2024 Haven Menard Plan Of Treatment No Information Medical (General) History Surgical History Surgery Date(Month/Year) left ovary removal x2 hysterectomy bleph x2 breast aug breast surgery- mastopexy abdominoplasty Hospitalization History Reason Date(Month/Year)
--- OUTSIDE RECORDS SUMMARY | 2024-06-08 13:52 | XMS_ITS | Referral Summary ---
Author Organization [facility] Address [address] [facility] [place] [address] Care Team Providers Care Edge Grinder Machine Name Role Phone Jose Juan Gonzalez MD Primary Care Provider [phone] Encounters Date Type Department Care Team Description 05/25/2024 1:30 PM OCCUPATIONAL THERAPY MANAGER Clinical Support [facility] [address] [place] [address] Office [facility] [address] [place] [address] Rosi Lara NP BMI 32.0-32.9,adult (Primary Dx); Class 1 obesity with body mass index (BMI) of 32.0 to 32.9 in adult, unspecified obesity type, unspecified whether serious comorbidity present 05/18/2024 1:30 PM OCCUPATIONAL THERAPY MANAGER Clinical Support [facility] [address] [place] [address] [address] [place] [address] Rosi Lara NP Post-acute sequelae of COVID-19 (PASC) (Primary Dx); BMI 32.0-32.9,adult; Hypertension, unspecified type 05/17/2024 4:00 PM OCCUPATIONAL THERAPY MANAGER Telemedicine [facility] [address] [place] [address] [address] [place] [address] Maria Eugenia Chacon, COAGULATING BATH OPERATOR Adjustment disorder with depressed mood (Primary Dx) 05/11/2024 1:30 PM OCCUPATIONAL THERAPY MANAGER Clinical Support [facility] [address] [place] [address] Office [facility] [address] [place] [phone] Rosi Lara, ISAAC BMI 32.0-32.9,adult (Primary Dx); Class 1 obesity with body mass index (BMI) of 32.0 to 32.9 in adult, unspecified obesity type, unspecified whether serious comorbidity present 04/28/2024 8:30 AM OCCUPATIONAL THERAPY MANAGER Office Visit [facility] [address] [place] [address] Office [facility] [address] [place] [address] Maria Eugenia Chacon, COAGULATING BATH OPERATOR Adjustment disorder with depressed mood (Primary Dx) 04/13/2024 8:00 AM OCCUPATIONAL THERAPY MANAGER Office Visit [facility] [address] [place] [address] [place] [phone] Rosi Lara NP Post-acute sequelae of COVID-19 (PASC) (Primary Dx); BMI 32.0-32.9,adult; Weight gain 04/11/2024 Plan of Care Documentation [facility] [address] [place] [phone] 04/11/2024 8:00 AM OCCUPATIONAL THERAPY MANAGER Therapy [facility] [address] [place] [phone] Blanca Albright, DPT COVID-19 long hauler manifesting chronic fatigue 04/04/2024 8:00 AM OCCUPATIONAL THERAPY MANAGER Office Visit [facility] [address] [place] [address] Office [facility] [address] [place] [phone] Maria Eugenia Chacon, COAGULATING BATH OPERATOR Adjustment disorder, unspecified type (Primary Dx) 03/21/2024 9:30 AM OCCUPATIONAL THERAPY MANAGER Office Visit [facility] [address] [place] [address] Office [facility] [address] [place] [phone] Maria Eugenia Chacon, COAGULATING BATH OPERATOR Adjustment disorder, unspecified type (Primary Dx) 03/10/2024 Telephone [facility] [address] [place] [address] Office [facility] [address] [place] [phone] Yoly Cleaning RN from Last 3 Months Allergies No known active allergies Medications Eliquis [...] HLD (hyperlipidemia) 09/28/2022 Acute renal failure 09/27/2022 Social History Tobacco Use Types Packs/Day Years Used Date Smoking Tobacco: Former Cigarettes Comments Unknown Sex and Gender Information Value Date Recorded Sex Assigned at Not on file Legal Sex Female 12:39 PM CDT Gender Identity Female 01/27/2023 10:36 AM CDT Sexual Orientation Straight 01/27/2023 10 :36 AM CDT Last Filed Vital Signs Vital Sign Reading Time Taken Comments Blood Pressure 118/75 04/13/2024 7:57 AM OCCUPATIONAL THERAPY MANAGER Pulse 78 04/13/2024 7:57 AM OCCUPATIONAL THERAPY MANAGER Temperature 36.8 C (98.2 F) 02/14/2024 8:00 AM CDT Respiratory Rate - - Oxygen Saturation 98% 06/21/2023 10: 19 AM OCCUPATIONAL THERAPY MANAGER Inhaled Oxygen Concentration - - Weight 83.4 kg (183 lb 12.8 oz) 04/13/2024 7:57 AM OCCUPATIONAL THERAPY MANAGER Height 160 cm (5' 3 ) 04/13/2024 7:57 AM OCCUPATIONAL THERAPY MANAGER Body Mass Index 32.56 04/13/2024 7:57 AM OCCUPATIONAL THERAPY MANAGER Plan of Treatment Not on file Insurance MEDICARE Care Teams Edge Grinder Machine Relationship Specialty Start Date End Date Jose Juan Gonzalez MD [address] INTERNAL MEDICINE [place], [place] [id number] PCP - General Internal Medicine 01/19/23 Valerie Garcia [facility] [address] [facility] [address] Manager Support Infectious Diseases 02/01/23
--- OUTSIDE RECORDS SUMMARY | 2024-06-08 13:52 | XMS_ITS ---
Author Organization [facility] Address [address] [place] [address] Care Team Providers Care Environmental Field Team Member Name Role Phone Shiloh Brandt Unavailable [phone] Jose Juan Gonzalez Unavailable Unavailable REASON FOR VISIT Refill Medications Medication SIG (Take, Route, Fr equency, Duration) Notes Start Date End Date Status ASMANEX HFA 100 mcg/inh 1 puff inhaled d aily for 30 days 07/20/2023 Active Encounters Encounter Location Date Provider Diagnosis [facility] [address] [place] [address] 09/15/2023 Shiloh Brandt Plan Of Treatment Medication Medication Name Sig Start Date Stop Date Notes ASMANEX HFA 100 mcg/inh 1 puff inhaled daily for 30 days 0 07/20/2023 Progress Notes * Nanette PLASENCIADOB: (67 yo F)Acc No.[id number]:09/15/2023 Patient: Nanette RICO :1955 A ge:67 Y S ex:Female Address:[address] [place] [address] * Refills Refill Asmanex HFA aerosol, 100 mcg/inh, inhaled, 1, 1 puff, daily, 30 days, Refills=5 * true * Date: Generated for Printi ng/Faxing/eTransmitting on: 0 06/08/2024 06:20 AM COMMUNICATIONS EQUIPMENT OPERATOR
--- OUTSIDE RECORDS SUMMARY | 2024-06-08 13:52 | XMS_ITS | Clinical Summary ---
Author Organization [facility] Address [address] [place] [address] Phone Care Team Providers Care Medical Cash Poster Name Role Phone Jose Juan Gonzalez MD Primary Care Provider [phone] Allergies No known active allergies Medications metoprolol Succinate (TOPROL-XL) 100 MG TABLET SR 24 HR Take 100 mg by mouth daily. 3 Active Vitamin D3 1000 UNIT Tablet Take 1,000 Units by mouth daily. 3 Active Ondansetron HCl (ZOFRAN PO) Take by mouth. Act dilan albuterol (ProAir HFA) 108 (90 Base) MCG/ACT Aerosol Solution take 2 Puffs by inhalation every 4 hours as needed for Wheezing or Cough. 8 g 3 Active hydrALAZINE HCl 100 MG Tablet Take 100 mg by mouth 3 times daily. 3 Active losartan (COZAAR) 100 MG Tablet Take 100 mg by mouth daily. 3 Active zolpidem (AMBIEN) 10 MG Tablet 3 Active Fexofenadine HCl (EYAL PO) Take by mouth. Activ e Pseudoephedrine -guaiFENesin (MUCINEX D PO) Take by mouth. Active fluticasone (Flovent HFA) 110 MCG/ACT Aerosol take 2 Puffs by inhalation 2 times daily. 12 g 5 3 Active aspirin 325 MG Tablet Take 1 Tablet by mouth daily. 3 Active ferrous sulfate 325 (65 Fe) MG Tablet Take 1 Tablet by mouth daily. Active hydroCHLOROthia zide 25 MG Tablet Take 1 Tablet by mouth daily. 4 Active naltrexone (DEPADE) 50 MG Tablet Take 1 Tablet by mouth daily. Takes 4.5mg daily for long covid (experimental) 4 Active rosuvastatin (CRESTOR) 20 MG Tablet Take 20 mg by mouth daily. 4 Active Crestor 10 MG Tablet Take 1 Tablet by mouth daily. 3 Active Active Problems Problem Noted Date Diagnosed Date Palpitation 11/04/2023 Adjustment disorder 02/23/2023 Acute kidney failure 10/05/2022 HTN (hypertension) 09/28/2022 HLD (hyperlipidemia) 09/28/2022 Depression 09/28/2022 JESSICA (acute kidney injury) 09/27/2022 Stroke Stroke Overview (11/04/2023): loop recorder in place Resolved Problems Problem Noted Date Diagnosed Date Resolved Date Chest pain 11/04/2023 11/05/2023 Immunizations Immunization Administration Dates Next Due COVID-19, MRNA, LNP-S, BIVAL ENT , PFIZER, 30 MCG/0.3 ML (12+ Y/O) 02/12/2022 Influenza Vaccine 03/05/2017,03/30/2015 Influenza Vaccine, Quadrivalent, PF 03/07/2021,0 01/12/2020 Influenza, Quadrivalent, Adjuvanted 02/05/2023 Influenza, Recombinant, Quadrivalent,injectable, Pf 02/12/2022,03/11/2018 Influenza, Seasonal, Injectable, Undefined 01/24 Pneumococcal Vaccine - 13 Valent 08/10/2016 Pneumococcal conjugate PCV20 , polysaccharide [id number] conjugate, adjuvant, PF 07/07/2022 RSV, Recombinant, Protein Sandy bunit Rsvpref, Adjuvant Recon (Arexvy) 02/14/2023 TDAP Vaccine 07/07/2022 Zoster Vaccine Recombinant 12/07/2018,08/11/2017 Family History Relation Name Status Comments Brother 1 Alive Brother 2 Alive Father Mother Sister 1 Sister 2 Alive Social History Tobacco Use Types Packs/Day Years Used Date Smoking Tobacco: Never Smokeless Tobacco: Never Tobacco Cessation:Counseling Given: Not Answered Alcohol Use Standard Drinks/Week Comments Yes 0 (1 standard drink = 0.6 oz pur e alcohol) wine/very occassional [facility] Utilities Answer Date Recorded In the past 12 months has th e electric, gas, oil, or water company threatened [...] declined 11/04/2023 How often do you attend confucianism or faith serv ices? Patient declined 11/04/2023 Do you belong to any clubs o r organizations such as confucianism groups, unions, fraternal or athletic groups, or [...] medical care, and heating? Somewhat hard 11/04/2023 [facility] - Occupational [...] any time in the past 12 m [facility], were you homeless or living in a fdc (including now)? No 11/04/2023 Sexually Active Control Partners Comments Not Currently Comments No Sex and Gender Information Value Date Recorded Sex Assigned at Not on file Legal Sex Female 10:59 PM CDT Gender Identity Female 02/12/2023 3:39 PM CDT Sexual Orientation Not on file Last Filed Vital Signs Vital Sign Reading Time Taken Comments Blood Pressure 135/83 11/05/2023 12:42 PM CDT Pulse 60 11/05/2023 12:42 PM CDT Temperature 37 C (98.6 F) 11/05/2023 12:42 PM CDT Respiratory Rate 20 11/05/2023 12:42 PM CDT Oxygen Saturation 96% 11/05/2023 12:42 PM CDT Inhaled Oxygen Concentration - - Weight 85.5 kg (188 lb 8 oz) 11/04/2023 3:15 AM CDT Height 157.5 cm (5' 2 ) 11/04/2023 3:15 AM CDT Body Mass Index 34.48 11/04/2023 3:15 AM CDT Plan of Treatment Health Maintenance Due Date Last Done Comments DEXA Bone Density 1955 Hepatitis C Virus (HCV) Screening 1955 Cologuard 2006 Immunochemical Fecal Occult Blood 2006 Mammogram 2006 Influenza Immunization (#1) 12/26/202301/24, 02/12/2022, 03/07/2021, Additional history exists SARS-COV-2 Immunization ( season) 2023 07/20/2023, 02/05/2023, 02/12/2022, Additional history exists Colonoscopy 07/05/2031 07/04/2021 Colorectal Cancer Screening 07/05/2031 Td Immunization Every 10 Years (Adults With 1 Tdap) 07/07/2032 07/07/2022 07/04/2021 Zoster Immunization Completed 12/07/2018, 8 DTaP/Tdap/Td Immunization Discontinued 07/07/2022 Pneumococcal Immunization (50+ years) Completed 07/07/2022, 08/10/2016 Respiratory Syncytial Virus (RSV) Immunization (Adult) Completed 02/14/2023 Hepatitis B Immunization Aged Out No longer eligible based on patient's age to complete this topic Meningococcal Immunization (ACWY) Aged Out No longer eligible based on patient's age to complete this topic Rotavirus Immunization Aged Out No lo nger eligible based on patient's age to complete this topic Goals Goal Patient Goal Type Associated Problems Recent Progress Patient-Stated? Author I have lost a lot of who I was since the stroke. It's like grieving that part. Behavioral Health On track( 023 7:19 PM SILK SPOOLER) Yes Rossy Bird, SENIOR QA AUTOMATION ENGINEER Note: Goal/Objective: Improve coping with the changes/losses since the stroke. Anticipated Time Frame for Goal Completion: 6 months Goal Reviewed with: patient Readiness to change: Ready to change Department associated with goal: [facility] Steps to achieve goal: [...] aid in managing problematic responses to grief. [place] [address] MEDICARE [facility] [employer] * Guarantor: [employer] Account Type Relation to Patient Date of Phone Billing Address Institutional Other [address] [place] [address] Advance Directives * Full Code (Latest Code Status on File) Date Activated Date Inactivated Comments 11/04/2023 3:23 AM 11/05/2023 4:43 PM CPR-Full Matthew atment: FULL ARREST: Attempt Resuscitation/CPR wit intubation and mechanical ventilation. PRE-ARREST: Use entire range of life support measures to stabilize the patient. * Full Code Date Activated Date Inactivated Comments 10/05/2022 10:29 PM 10/07/2022 2:02 PM CPR-Full Tr eatment: FULL ARREST: Attempt Resuscitation/CPR wit intubation and mechanical ventilation. PRE-ARREST: Use entire range of life support measures to stabilize the patient. * Full Code Date Activated Date Inactivated Comments 09/27/2022 8:50 PM 09/29/2022 3:09 PM CPR-Full Treat ment: FULL ARREST: Attempt Resuscitation/CPR wit intubation and mechanical ventilation. PRE-ARREST: Use entire range of life support measures to stabilize the patient. Care Teams Medical Cash Poster Relationship Specialty Start Date End Date Jose Juan Gonzalez MD [address] [place] [address] PCP - General Internal Medicine 03/30/23
--- OUTSIDE RECORDS SUMMARY | 2024-06-08 13:52 | XMS_ITS ---
Author Organization [facility] Address [address] [place] [address] Care Team Providers Care Precision Lens Technician Name Role Phone Shiloh Brandt Unavailable [phone] Jose Juan Gonzalez Unavailable Unavailable ZZ-Migration, Provider Unavailable Unavailab le REASON FOR VISIT [facility] Encounter Medications Medication SIG (Take, Route, Frequency, Duration) Notes Start Date End Date Status hydroCHLOROthiazide 25 MG 1 tab(s) orally once a day Active Losartan Potassium 25 MG 1 tab(s) orally once a day Active hydrALAZINE HCl 100 MG 1 tab(s) orally 3 times a day for 30 days 04/14/2023 Active Metoprolol Succinate ER 100 MG 1 tab(s) orally once a day Active Ventolin HFA 108 (90 Base) MCG/ACT 2 puff(s) inhaled Q4-6 hours, PRN and per the asthma action plan for 30 days Active Crestor 10 MG 1 tab(s) orally once a day Active Provigil 200 MG 1 tab(s) orally once a day (in the morning) Active Aspirin 325 MG 1 tab(s) orally once a day Active Zolpidem Tartrate 10 MG 1 tab(s) orally once a day (at bedtime) PRN Active Asmanex HFA 100 MCG/ACT 1 puff inhaled daily for 30 days 07/20/2023 Active Zepbound 5 MG/0.5 ML DIRECTED SUBCUTANEOUSLY ONCE A WEEK *Please review and pick correct strength-formula tion from Medispan options. If intended option is not shown, discontinue and re-order from Quick Search* Active Flonase Allergy Relief 50 MCG/ACT 2 spray(s) in each nostril twice a day Active Naltrexone HCl 50 MG 1 tab(s) orally once a day 09/14/2023 Active PROzac 20 MG 5 cap(s) orally once a day Active Flovent HFA 110 MCG/INH DIRECTED INHA LED 2 TIMES A DAY for 30 DAYS *Please review and pick correct strength-formula tion from [facility] options. If intended option is not shown, discontinue and re-order from Quick Search* 06/16/2023 Active Iron Chews Pediatric 15 MG 1 tab(s) orally once a day Active ALL DAY ALLERGY (CETIRIZINE) 10 MG 1 TAB(S) ORALLY ONCE A DAY *Please review for potential replacement for e-prescription and drug interaction check* Active Encounters Encounter Location Date Provider Diagnosis [facility] [address] [place] [address] 10/09/2023 Provider Isabel Chronic cough R05.3 Assessments Encounter Date Diagnosis (ICD Code) Assessment Notes Treatment Notes Treatment Clinical Notes Section Notes 10/09/2023 Chronic cough (ICD-10 - R05.3) Plan Of Treatment Medication Medication Name Sig Start Date Stop Date Notes Ventolin HFA 108 (90 Base) MCG/ACT 2 puff(s) inhaled Q4-6 hours, PRN and per the asthma action plan for 30 days Asmanex HFA 100 MCG/ACT 1 puff inhaled d aily for 30 days 07/20/2023 Progress Notes * Nanette PLASENCIADOB: 7 (68 yo F)Acc No.[id number]:10/09/2023 Patient: Nanette RICO Provider: Carolina Hyde :1955 A ge:67 Y S ex:Female Date:10/09/2023 Address:[address] [place] [address], [id number] Subjective: * Chief Complaints: * 1 . [facility] En[facility]. * Medical History: * Medications: T aking Iron Chews Pediatric 15 MG Tablet Chewable 1 tab(s) orally once a day , Taking ALL DAY ALLERGY (CETIRIZINE) 10 MG TABLET 1 TAB(S) ORALLY ONCE A DAY , Notes to Pharmacist: *Please review for potential replacement for e-prescription and drug interaction check*, Taking Zepbound 5 MG/0.5 ML SOLUTION DIRECTED SUBCUTANEOUSLY ONCE A WEEK , Notes to Pharmacist: *Please review and pick correct strength-formulation from [employer] options. If intended option is not shown, discontinue and re-order from Quick Search*, Taking Naltrexone HCl 50 MG Tablet 1 tab(s) orally once a day , Taking Flovent HFA 110 MCG/INH AEROSOL DIRECTED INHALED 2 TIMES A DAY , Notes to Pharmacist: *Please review and pick correct strength-formulation from [employer] options. If intended option is not shown, discontinue and re-order from Quick Search*, Taking PROzac 20 MG Capsule 5 cap(s) orally once a day , Taking Flonase Allergy Relief 50 MCG/ACT Suspension 2 spray(s) in each nostril twice a day , Taking Provigil 200 MG Tablet 1 tab(s) orally once a day (in the morning) , Taking Zolpidem Tartrate 10 MG Tablet 1 tab(s) orally once a day (at bedtime) , Notes to Pharmacist: PRN, Taking Aspirin 325 MG Tablet 1 tab(s) orally once a day , Taking Crestor 10 MG Tablet 1 tab(s) orally once a day , Taking hydroCHLOROthiazide 25 MG Tablet 1 tab(s) orally once a day , Taking Losartan Potassium 25 MG Tablet 1 tab(s) orally once a day , Taking Metoprolol Succinate ER 100 MG Tablet Extended Release 24 Hour 1 tab(s) orally once a day , Taking hydrALAZINE HCl 100 MG Tablet 1 tab(s) orally 3 times a day Objective: * Vitals: Assessment: * Assessment: 1. C hronic cough - R05.3 Plan: * Treatment: 2. O thers Refill Asmanex HFA Aerosol, 100 MCG/ACT, 1 puff, inhaled, daily, 30 days, 1, Refills 5. * Billing Information: * Visit Code: * Procedure Codes: * Electronic signature of Satya mehul DICKERSON-Migration on 06/08/2024 at 06:21 AM AGING ROOM HAND Sign off status: Pending * Provider: Carolina angel Migration Date: 0 10/09/2023 Generated for Luly ventura/Fidelia/eTransmitting on: 0 06/08/2024 06:21 AM AGING ROOM HAND
--- OUTSIDE RECORDS SUMMARY | 2024-06-08 13:52 | XMS_ITS | Clinical Summary ---
Author Organization [facility] Address [address] [place] [address] Care Team Providers Care C Programmer Name Role Phone Jose Juan Gonzalez MD Primary Care Provider [phone] Source Comments [facility],non-owned Affiliates and Associated Physician Practices is amultiple site organization consisting of ambulatory clinics and hospital sitesin [place], [place], [place] and [place]. This disclosure is being madepursuant to the Care Everywhere program and may not contain all information available regarding this patient. Last updated 18.[employer] [facility] Allergies No known active allergies Medications * [...] Sinus tachycardia 01/23/2024 Cerebrovascular accident (CVA), unspecified mech anism 01/08/2023 Encounters Date Type Department Care Team Description 06/08/2024 9:30 AM TRADE MANAGER Clinical Support [facility] [address], [address] [address] Candie Villalobos MD Encounter for loop recorder check ; Cerebrovascular accident (CVA), unspecified mechanism (HCC) 05/04/2024 9:30 AM TRADE MANAGER Clinical Support [facility] [address], [address] [address] Candie Villalobos MD Encounter for loop recorder check ; Cerebrovascular accident (CVA), unspecified mechanism (HCC) 03/30/2024 9:30 AM TRADE MANAGER Clinical Support [facility] [address], [address] [address] Candie Villalobos MD Encounter for loop recorder check ; Cerebrovascular accident (CVA), unspecified mechanism (HCC) from Last 3 Months Social History Tobacco Use Types Packs/Day Years Used Date Smoking Tobacco: Never Smokeless Tobacco: Never Tobacco Cessation:Counseling Given: Not Answered Overall Financial Resource Strain (CARDIA) Answe r Date Recorded How hard is it for you to pa y for the very basics like food, housing, medical care, and heating? Not hard at all 01/09/2023 [facility] - Occupational Stress [...] place to sleep or slept in a fdc (including now)? No 01/09/2023 Sex and Gender [...] Mass Index 32.01 02/15/2024 1:12 PM CDT Plan of Treatment Upcoming Encounters Date Type Department Care Team (Late st Contact Info) Description 06/20/2024 12:10 PM TRADE MANAGER Office Visit [facility] [address] [place] [address], [address] [address] [place] [address] [place] [address] [place] [phone] 07/13/2024 9:30 AM CDT Clinical Support [facility] [address] [place] [address], [address] [address] [place] [address] [place] [address] [place] [phone] 08/02/2024 10:20 AM CDT Office Visit [facility] [address] [place] [address], [address] [address] [place] [address] [address] [place] [address] [place] [phone] 08/17/2024 9:30 AM CDT Clinical Support [facility] [address] [place] [address], [address] [address] [place] [address] [address] [place] [address] [place] [phone] 09/21/2024 9:30 AM CDT Clinical Support [facility] [address] [place] [address], [address] [address] [place] [address] [address] [place] [address] [place] [phone] 10/26/2024 9:30 AM CDT Clinical Support [facility] [address] [place] [address], [address] [address] [place] [address] [place] [address] Health Maintenance Due Date Last Done Comments BONE DENSITY TESTING 1955 COLOGUARD (AGES 45-75) - COLON CA SCREENING [address] COLONOGRAPHY - COLON CA SCREENING 1955 FIT - COLON CA SCREENING 1955 FLEX SIG - COLON CA SCREENING 1955 MAMMOGRAM 1955 HEPATITIS C SCREENING 10/11/1974 DTAP/TDAP/TD VACCINES (1 - Tdap) 10/16/1975 PNEUMOCOCCAL VACCINE 50+ (1 of 1 - PCV) 2006 ZOSTER VACCINE (1 of 2) 2006 Respiratory Syncytial Virus (RSV) Vaccine Pt: or over 60 yrs (1 - Risk 60-74 years 1-dose series) 2016 COVID-19 VACCINE (2 - season) 2023 02/12/2022 INFLUENZA VACCINE (#1) 2023 2, 03/07/2021, 01/12/2020, Additional history exists DEPRESSION SCREENING 04/26/2024 MEDICARE AWV CALENDAR YEAR 2024 SCREENING FOR DIABETES 01/10/2026 3, 01/09/2023, 01/09/2023, Additional history exists COLONOSCOPY - COLON CA SCREENING 07/05/2031 07/04/2021 Colorectal Cancer Screening 07/05/2031 HEPATITIS B VACCINE Aged Out No longe r eligible based on patient's age to complete this topic HIB VACCINE Aged Out No longer eligi ble based on patient's age to complete this topic HPV VACCINE Aged Out No longer eligi ble based on patient's age to complete this topic MENINGOCOCCAL (Group B) VACCINE Aged Out No longer eligible based on patient's age to complete this topic MENINGOCOCCAL VACCINE Aged Out No liza kristen eligible based on patient's age to complete this topic Medical Devices Implanted Type Area Sterile Processing Manager Device Identifier Shelf Expiration Date Model / Serial / Lot Sys Crd Mntr Rvl Linq Ii Implanted:Qty: 1 on 01/10/2023 by Candie Villalobos MD at [facility] [id number] 04/03/2024 [id number] [id number] / [id number] / NA Procedures Procedure Name Priority Date/Time Associated Diagnosis Comments [facility] CLINIC CHECK Routine 06/08/2024 6:31 AM TRADE MANAGER Cerebrovascular accident (CVA), unspecified mechanism (HCC) Encounter for loop recorder check ILR CLINIC CHECK Routine 05/09/2024 6:51 AM TRADE MANAGER Cerebrovascular accident (CVA), unspecified mechanism (HCC) Encounter for loop recorder check BASIC METABOLIC PANEL (CALCIUM TOTAL) AM Draw 01/10/2023 4:27 AM CDT from Last 3 Months or Most Recently Relevant to Health Maintenance Results * (ABNORMAL) BASIC METABOLIC PANEL (CALCIUM TOTAL) (01/10/2023 4:27 AM CDT) Pathologist [facility] Glucose 101 70 - 105 mg/dL 01/10/2023 4:53 AM CDT [facility] Sodium 142 136 - 145 mmol/L 01/10/2023 4:53 AM CDT [facility] Potassium 4.3 3.5 - 5.1 mmol/L 01/10/2023 4:53 AM CDT [facility] Chloride 107 98 - 107 mmol/L 01/10/2023 4:53 AM CDT [facility] CO2 27 22 - 29 mmol/L 01/10/2023 4:53 AM CDT [facility] Calcium 9.6 8.4 - 10.4 mg/dL 01/10/2023 4:53 AM CDT [facility] Anion Gap 8 6 - 16 mmol/L 01/10/2023 4:53 AM CDT [facility] BUN 13 7 - 26 mg/dL 01/10/2023 4:53 AM CDT [facility] Creatinine 0.80 0.57 - 1.11 mg/dL 01/10/2023 4:53 AM CDT [facility] eGFR by CKD-EPI 81(L) >=90 mL/min/1.7 3 m2 01/10/2023 4:53 AM CDT [facility] Blood BLOOD SPECIMEN / Unknown Venipuncture / Unknown 01/10/2023 4:27 AM CDT 01/10/2023 4:32 AM CDT Shahrzad Hoff MD LAB - CHEMISTRY EMILY R[facility] [address] [place] [address] from Last 3 Months or Most Recently Relevant to Health Maintenance Advance Directives * Full Code (Latest Code Status on File) Date Activated Date Inactivated Comments 01/08/2023 6:40 PM 01/10/2023 1:59 PM Care Teams C Programmer Relationship Specialty Start Date End Date Jose Juan Gonzalez MD [address] [place] [phone] PCP - General Internal Medicine 01/10/23
--- OUTSIDE RECORDS SUMMARY | 2024-06-08 13:52 | XMS_ITS | Encounter Summary ---
Author Organization [facility] Address [address] [place] [address] Phone Care Team Providers Care Dray Driver Name Role Phone Jose Juan Gonzalez MD Primary Care Provider Encounter Details Date Type Department Care Team (Latest Contact Info) Description 06/04/2023 Transcribe Orders [facility] [address] [place] [id number] Gabriela Medina, HEALTH SCIENCES PROGRAM COORDINATOR, VENEER DEPARTMENT MANAGER [address] [place] [address] Immunity status testing (Primary Dx) Social History Tobacco Use Types Packs/Day Years Used Date Smoking Tobacco: Unknown Alcohol Use Standard Drinks/Week Comments Yes 0 (1 standard drink = 0.6 oz pur e alcohol) wine/very occassional Sexually Active Control Partners Comments Not Currently Comments No Sex and Gender Information Value Date Recorded Sex Assigned at Not on file Legal Sex Female 10:59 PM CDT Gender Identity Female 02/12/2023 3:39 PM CDT Sexual Orientation Not on file documented as of this encounter Plan of Treatment Scheduled Orders Name Type Priority Associated Diagnoses Orde r Schedule HEPATITIS B SURFACE ANTIBODY (HBSAB) Lab Routine Immunity status testing Expected: 06/04/2023, Expires: 06/04/2024 documented as of this encounter Goals Goal Patient Goal Type Associated Problems Recent Progress Patient-Stated? Author I have lost a lot of who I was since the stroke. It's like grieving that part. Behavioral Health On track( 023 7:19 PM WELDER BOILERMAKER) Yes Rossy Bird, HAMMER REPAIRER Note: Goal/Objective: Improve coping with the changes/losses since the stroke. Anticipated Time Frame for Goal Completion: 6 months Goal Reviewed with: patient Readiness to change: Ready to change Department associated with goal: [facility] Steps to [...] as of this encounter Visit Diagnoses Diagnosis Immunity status testing- Primary Antibody response examination documented in this encounter Additional Health Concerns Infection Onset Date Last Indicated Resolved Time COVID - 19 11/03/2023 11/03/2023 11/04/2023 12:1 7 AM CDT documented as of this encounter Care Teams Dray Driver Relationship Specialty Start Date End Date Jose Juan Gonzalez MD [address] [place] [address] PCP - General Internal Medicine 03/30/23 documented as of this encounter
--- OUTSIDE RECORDS SUMMARY | 2024-06-08 13:52 | XMS_ITS | Encounter Summary ---
Author Organization [facility] Address [address] [facility] [address] Care Team Providers Care Clamp Truck Driver Name Role Phone Jose Juan Gonzalez MD Primary Care Provider [phone] Encounter Details Date Type Department Care Team (Latest Contact Info) Description 06/08/2024 9:30 AM BURIAL VAULT DELIVERER AND INSTALLER Clinical Support [facility] Care [address] [facility], [address] [place] [address] [place] [address] [facility] [address] [place] [address] Encounter for loop recorder check ; Cerebrovascular accident (CVA), unspecified mechanism (HCC) Social History Tobacco Use Types Packs/Day Years Used Date Smoking Tobacco: Never Smokeless Tobacco: Never Overall Financial Resource Strain (CARDIA) Answe r Date Recorded How hard is it for you to pa y for the very basics like food, housing, medical care, and heating? Not hard at all 01/09/2023 [facility] [place] of Occupat ional Health - Occupational Stress [...] place to sleep or slept in a prison (including now)? No 01/09/2023 Sex and Gender Information Value Date Recorded Sex Assigned at Not on file Gender Identity Not on file Sexual Orientation Not on file documented as of this encounter Functional Status Functional Status Response Date of [...] person have difficulty concentrating/remembering/making decisions? No 01/09/2023 documented as of this encounter Progress Notes * Kassi Tamez MA - 06/08/2024 6:26 AM CST Remote download: KEKE ALVARADO Observation period: 04-May-2024 to 08-Jun-2024 Since last check: --70 Tachy Episodes detected by device; most recent on 06/06/2024 at 18:15; max duration recorded on 05/13/2024 at 13:57 of 04:23 hours with a max V rate of 133bpm. EGMs are consistent with ST/SR with artifact and oversensing - noted iso/PVCs. Battery Status: stable AF burden: 0.0% PVC burden: 0.2% OAC Status: no OACs Next check will be: 1mo remote The supporting device data is scanned under the Cardiac Tab In RESULTS [employer] for 06/08/2024 The supervising MD to review & sign off. AL VAULT DELIVERER AND INSTALLER documented in this encounter Plan of Treatment Upcoming Encounters Date Type Department Care Team (Late st Contact Info) Description 06/20/2024 12:10 PM BURIAL VAULT DELIVERER AND INSTALLER Office Visit [facility] Heart [facility] Vascular [address], [address] [id number] [phone] [place] [address] [address] [place] [phone] 07/13/2024 9:30 AM CDT Clinical Support [facility] [address] [address] [phone] [place] [address] [address] [place] [phone] 08/02/2024 10:20 AM CDT Office Visit [facility] & Vascular [address], [address] [address] [phone] [place] [address] [address] [place] [phone] 08/17/2024 9:30 AM CDT Clinical Support [facility] Care [address] [place] [address], [address] [address] [phone] [place] [address] [address] [place] [phone] 09/21/2024 9:30 AM CDT Clinical Support [facility] Care [address] [place] [address], [address] [address] [phone] [place] [address] [address] [place] [phone] 10/26/2024 9:30 AM CDT Clinical Support [facility] Care [address] [facility], [address] [place] [address] [place] [address] [facility] [address] [place] [phone] Pending Results Name Type Priority Associated Diagnoses Date /Time ILR CLINIC CHECK Cardiac Services Routine Cerebrovascular accident (CVA), unspecified mechanism (HCC) Encounter for loop recorder check 06/08/2024 6:31 AM BURIAL VAULT DELIVERER AND INSTALLER documented as of this encounter Procedures Procedure Name Priority Date/Time Associated Diagnosis Comments ILR CLINIC CHECK Routine 06/08/2024 6:31 AM BURIAL VAULT DELIVERER AND INSTALLER Cerebrovascular accident (CVA), unspecified mechanism (HCC) Encounter for loop recorder check documented in this encounter Visit Diagnoses Diagnosis Encounter for loop recorder check- Primary Cerebrovascular accident (CVA), unspecified mechanism (HCC) documented in this encounter Care Teams Clamp Truck Driver Relationship Specialty Start Date End Date Jose Juan Gonzalez MD [address] [place] [phone] PCP - General Internal Medicine 01/10/23 documented as of this encounter
[2024-06-08 14:52] LABS: Strep Group A RT-PCR NOT DETECTED (Negative)
[2024-06-08 15:02] LABS: Influenza A QL RT-PCR Negative (Negative); Influenza B QL RT-PCR Negative (Negative); RSV RNA, RT-PCR Negative (Negative); SARS-CoV-2 RNA PCR Negative (Negative)
== END 2024-06-08 13:48 | disposition home or self-care (01) ==
PROVIDERS: PCP Internal Medicine; Visit Provider Internal Medicine
DX: R50.9 Fever, unspecified (principal); J02.9 Acute pharyngitis, unspecified; Z20.822 Contact with and (suspected) exposure to COVID-19
CPT/HCPCS: 87637; 87651

== ENCOUNTER 2024-10-11 07:44 | Outpatient (CLI) | payer MEDICARE, SELFPAY ==
--- OUTSIDE RECORDS SUMMARY | 2024-10-11 07:50 | XMS_ITS | Encounter Summary ---
Author Organization [facility] Address [address] [place] [address] Phone Care Team Providers Care Licensed Psychologist Director Name Role Phone Provider, Unknown Primary Care Provider Sharlene Sofia MD Primary Care Provider + Mendoza Oconnor PAC Primary Care Provider [phone] Jose Juan Gonzalez MD Primary Care Provider [phone] Encounter Details Date Type Department Care Team (Late st Contact Info) Description 10/23/2021 Lab Requisition [facility] [address] [place] [address] Gabriela Medina, VENETIAN BLIND WASHER, OYSTER FARMER [address] [place] [address] Encounter for pre-employment examination Social [...] 7.7 >=1.1 AI 10/24/2021 9:08 AM CDT [facility] Blood No Phlebotomy Charged / Unknown 10/23/2021 8:45 AM CDT 10/23/2021 12:23 PM CDT Narrative [facility] - 10/24/2021 9:08 AM CDT <= 0.8 Negative. No detectable VZV IgG antibody. 0.9 - 1.0 Equivocal >=1.1 Positive Antibody testing was performed by multiplex flow immunoassay on the Lettuce platform. us Gabriela Medina VENETIAN BLIND WASHER, OYSTER FARMER IMMUNOLOGY ORDERABL ES Final Result [facility] [address] [place] [address], * [place] (MEASLES) IGG (10/23/2021 8:45 AM CDT) MEASLES AB IGG 5.7 >=1.1 AI 10/24/2021 9:08 AM CDT [facility] Blood No Phlebotomy Charged / Unknown 10/23/2021 8:45 AM CDT 10/23/2021 12:23 PM CDT Narrative [facility] - 10/24/2021 9:08 AM CDT <= 0.8 Negative. No detectable Measles IgG antibody. 0.9 - 1.0 Equivocal >=1.1 Positive Antibody testing was performed by multiplex flow immunoassay on the BioPlex platform. us Gabriela Medina APRN, CNP IMMUNOLOGY ORDERABL ES Final Result Performing Organization Address City/[facility] Co de Phone Number [facility] [address] [place] [address], [place] * [place] [facility]MMUN[facility] IGG (10/23/2021 8:45 AM CDT) [facility] [facility] Immune Immune, Invalid 10/24/2021 9:08 AM CDT [facility] Blood No Phlebotomy Charged / Unknown 10/23/2021 8:45 AM CDT 10/23/2021 12:23 PM CDT Narrative [facility] - 10/24/2021 9:08 AM CDT Antibody testing was performed by multiplex flow immunoassay on the BioPlex platform. us Gabriela Medina APRN, CNP CHEMISTRY ORDERABLE S Final Result Performing Organization Address [facility] Co de Phone Number [facility] [address] [place] [address], [place] * MUMPS IGG (10/23/2021 8:45 AM CDT) Mumps Ab IgG 1.7 >=1.1 AI 10/24/2021 9:08 AM CDT [facility] Blood No Phlebotomy Charged / Unknown 10/23/2021 8:45 AM CDT 10/23/2021 12:23 PM CDT Narrative [facility] - 10/24/2021 9:08 AM CDT <= 0.8 Negative. No detectable Mumps IgG antibody. 0.9 - 1.0 Equivocal >=1.1 Positive Antibody testing was performed by multiplex flow immunoassay on the Lettuce platform. us Gabriela Medina APRN, VINAY IMMUNOLOGY ORDERABL ES Final Result [facility] [address] [place] [address], [place] documented in this encounter Visit Diagnoses Diagnosis Encounter for pre-employment examination Health examination of defined subpopulation documented in this encounter Additional Health Concerns Infection Onset Date Last Indicated Resolved Time COVID - 19 03/12/2022 03/16/2022 03/26/2022 12:1 6 AM ORTHOPHOTO TECH/DRAFTSMAN Influenza 03/16/2022 03/16/2022 03/23/2022 12:1 6 AM ORTHOPHOTO TECH/DRAFTSMAN COVID - 19 04/25/2022 04/25/2022 05/05/2022 12:1 9 AM ORTHOPHOTO TECH/DRAFTSMAN Respiratory Rule Out - RPA 10/26/2022 10/26/2022 0 10/26/2022 2:24 PM CDT COVID - 19 10/26/2022 10/26/2022 11/05/2022 12:1 6 AM CDT COVID - 19 12/09/2022 12/09/2022 12/19/2022 12:1 6 AM CDT COVID - 19 11/03/2023 11/03/2023 11/04/2023 12:1 7 AM CDT documented as of this encounter Care Teams Licensed Psychologist Director Relationship Specialty Start Date End Date Provider, Unknown UNKNOWN PCP - General 10/23/21 09/27/22 Sharlene Curiel MD [address] [place] [address] PCP - General Family Medicine 09/28/22 10/13/22 Mendoza Oconnor PAC [address] [place] [address] PCP - General Physician Document Management Analyst 10/14/22 03/29/23 Jose Juan Gonzalez MD [address] [place] [address] PCP - General Internal Medicine 03/30/23 documented as of this encounter
--- OUTSIDE RECORDS SUMMARY | 2024-10-11 07:50 | XMS_ITS | Clinical Summary ---
Author Organization [facility] Address [address] [place] [address] Phone Care Team Providers Care Service Technician Copier Name Role Phone Jose Juan Gonzalez MD Primary Care Provider Allergies No known active allergies Medications metoprolol [...] Valent 08/10/2016 Pneumococcal conjugate PCV20 , polysaccharide KYH726 conjugate, adjuvant, PF 07/07/2022 RSV, Recombinant, Protein [...] 0.6 oz pur e alcohol) wine/very occassional [facility] Utilities Answer Date Recorded In the past 12 months has th e electric, gas, oil, or water company threatened to shut off services in your home? No 11/04/2023 Social Connection and Isolation Panel Answer Date Recorded In a typical week, how many times do you talk on the phone with family, friends, or neighbors? Patient declined 11/04/2023 How often do you get togethe r with friends or relatives? Patient declined 11/04/2023 How often do you attend anabaptist or jainism serv ices? Patient declined 11/04/2023 Do you belong to any clubs o r organizations such as anabaptist groups, unions, fraternal or athletic groups, or [...] medical care, and heating? Somewhat hard 11/04/2023 [facility] of Occupat ional Health - Occupational Stress [...] any time in the past 12 m [facility], were you homeless or living in a half-way (including now)? No 11/04/2023 Sexually Active Control [...] 3:15 AM CDT Height 157.5 cm (5' 2) 11/04/2023 3:15 AM CDT Body Mass Index 34.48 11/04/2023 3:15 AM CDT Plan of Treatment Health Maintenance Due Date Last Done Comments DEXA Bone Density 1955 Hepatitis C Virus (HCV) Screening 1955 Mammogram 1955 Cologuard 2001 Immunochemical Fecal Occult Blood 2001 SARS-COV-2 Immunization ( season) 2023 07/20/2023, 02/05/2023, 02/12/2022, Additional history exists Influenza Immunization (Season Ended) 2024 02/05/2023, 02/12/2022, 03/07/2021, Additional history exists Colonoscopy 07/05/2031 07/04/2021 Colorectal Cancer Screening 07/05/2031 Td Immunization Every 10 Years (Adults With 1 Tdap) 07/07/2032 07/07/2022 Zoster Immunization Completed 12/07/2018, 8 DTaP/Tdap/Td Immunization Discontinued 07/07/2022 Pneumococcal Immunization (50+ years) Completed 07/07/2022, 08/10/2016 Respiratory Syncytial Virus (RSV) Immunization (Adult) Completed 02/14/2023 Hepatitis B Immunization Aged Out No longer eligible based on patient's age to complete this topic Human Papillomavirus (HPV) Immunization Aged Out No longer eligible based [...] Behavioral Health On track( 023 7:19 PM SCIENTIFIC AFFAIRS MANAGER) Yes Rossy Bird, YARN REWINDER Note: Goal/Objective: Improve coping with the changes/losses since the stroke. Anticipated Time Frame for Goal Completion: 6 months Goal Reviewed with: patient Readiness to change: Ready to change Department associated with goal: [facility] Steps to achieve [...] to grief. [place] [address] [place] [address] [facility] [employer] * Guarantor: [employer] Account Type Relation to Patient Date of Phone Billing Address Institutional Other [address] [place] [address] Advance Directives * Full Code (Latest Code [...] measures to stabilize the patient. Care Teams Service Technician Copier Relationship Specialty Start Date End Date Jose Juan Gonzalez MD PCP - General Internal Medicine 03/30/23
--- OUTSIDE RECORDS SUMMARY | 2024-10-11 07:50 | XMS_ITS | Clinical Summary ---
Author Organization [facility] Address [address] [place] [address] Care Team Providers Care Snow Shoveler Name Role Phone Jose Juan Gonzalez MD Primary Care Provider [phone] Source Comments [facility],non-owned Affiliates and Associated Physician Practices is amultiple site organization consisting of ambulatory clinics and hospital sitesin [place], [place], [place] and [place]. This disclosure is being madepursuant to the Care Everywhere program and may not contain all information available regarding this patient. Last updated 18.[facility] Allergies No known active allergies Medications * Be aware that medications may not be up to date on this document. Alwaysverify current medications with the patient. vitamin D3 (Cholecalcifer ol) 25 MCG (1000 UNITS) tablet Take 1 (one) tablet by mouth every evening Active rosuvastatin (Crestor) 10 MG tablet Take 1 (one) tablet by mouth once daily 30 tablet 2 01/11/20 23 Active hydrALAZINE (Apresoline) 100 MG tablet Take 1 (one) tablet by mouth 3 times daily 01/08/20 23 Active losartan (Cozaar) 100 MG tablet Take 1 (one) tablet by mouth once daily 12/09/19 23 Active zolpidem (Ambien) 10 MG tablet Take 1 (one) tablet by mouth nightly as needed for Insomnia 02/16/20 23 Active hydroCHLOROthi azide (Hydrodiuril) 25 MG tablet 0.5 (one-half) tablet 05/01/19 24 Active Zepbound 2.5 MG/0.5ML injection ADMINISTER 2.5 MG UNDER THE SKIN WEEKLY FOR 4 WEEKS 07/27/19 24 Active metoprolol succinate XL 24hr (Toprol XL) 100 MG tablet Take 1 (one) tablet by mouth once daily 90 tablet 3 12/01/19 24 Active cetirizine (ZyrTEC) 10 MG tablet Take 1 (one) tablet by mouth once daily Activ e ondansetron, disintegrating , (Zofran ODT) 8 MG tablet Take 1 (one) tablet by mouth every 8 hours as needed 01/05/20 24 Active promethazine (Phenergan) 25 MG tablet Take 1 (one) tablet by mouth 3 times daily as needed Active Eliquis 5 MG tablet TAKE 1 TABLET BY MOUTH TWICE DAILY FOR CEREBROVASCULAR ACCIDENT SECONDARY TO ATRIAL FIBRILLATION 60 tablet 2 07/05/19 25 Active Active Problems Problem Noted Date Diagnosed Date Sinus tachycardia 01/23/2024 Cerebrovascular accident (CVA), unspecified mech anism 01/08/2023 Encounters Date Type Department Care Team Description 09/21/2024 9:30 AM CDT Clinical Support [facility] & [facility] [address] [address] Candie Villalobos MD Cerebrovascular accident (CVA), unspecified mechanism (HCC) ; Encounter for loop recorder check 08/17/2024 9:30 AM CDT Clinical Support [facility] [address], [address] [address] Candie Villalobos MD Cerebrovascular accident (CVA), unspecified mechanism (HCC) ; Encounter for loop recorder check 07/13/2024 9:30 AM CDT Clinical Support [facility] [address], [address] [address] Candie Villalobos MD Cerebrovascular accident (CVA), unspecified mechanism ; Encounter for loop recorder check from Last 3 Months Social History Tobacco Use Types Packs/Day Years Used Date Smoking Tobacco: Never Smokeless Tobacco: Never Tobacco Cessation:Counseling Given: Not Answered Overall Financial Resource Strain (CARDIA) Answe r Date Recorded How hard is it for you to pa y for the very basics like food, housing, medical care, and heating? Not hard at all 01/09/2023 [facility] [place] of Occupat ional Health - Occupational Stress [...] place to sleep or slept in a snf (including now)? No 01/09/2023 Comments No Sex and Gender Information Value Date Recorded Sex Assigned at Not on file Legal Sex Female 5:06 PM CDT Gender Identity Not on file Sexual Orientation Not on file Last Filed Vital Signs Vital Sign Reading Time Taken Comments Blood Pressure 156/81 06/20/2024 12:34 PM CERTIFIED RECREATIONAL THERAPIST Pulse 58 06/20/2024 12:34 PM CERTIFIED RECREATIONAL THERAPIST Temperature 36.7 C (98 F) 01/10/2023 10:54 AM CDT Respiratory Rate 18 02/15/2024 1:12 PM CDT Oxygen Saturation 96% 02/15/2024 1:12 PM CDT Inhaled Oxygen Concentration - - Weight 79.4 kg (175 lb) 06/20/2024 12:34 PM CERTIFIED RECREATIONAL THERAPIST Height 157.5 cm (5' 2.01) 06/20/2024 12:[address] Body Mass Index 32 06/20/2024 12:34 PM CERTIFIED RECREATIONAL THERAPIST Plan of Treatment Upcoming Encounters Date Type Department Care Team (Late st Contact Info) Description 10/26/2024 9:30 AM CDT Clinical Support [facility] [address] [facility], [address] [place] [address] [place] [address] [place] [phone] 06/20/2025 11:10 AM CERTIFIED RECREATIONAL THERAPIST Office Visit [facility] [address] [facility], [address] [place] [address] [place] [address] [place] [phone] Health Maintenance Due Date Last Done Comments BONE DENSITY TESTING 1955 COLOGUARD (AGES 45-75) - COLON CA SCREENING 1956 CT COLONOGRAPHY - COLON CA SCREENING 1956 FIT - COLON CA SCREENING 1956 FLEX SIG - COLON CA SCREENING 1955 MAMMOGRAM 1955 MEDICARE AWV 12 MONTHS 1956 HEPATITIS C SCREENING 10/11/1974 DTAP/TDAP/TD VACCINES (1 - Tdap) 10/16/1975 PNEUMOCOCCAL VACCINE 50+ (1 of 1 - PCV) 2006 ZOSTER VACCINE (1 of 2) 2006 Respiratory Syncytial Virus (RSV) Vaccine Pt: or over 60 yrs (1 - Risk 60-74 years 1-dose series) 2016 COVID-19 VACCINE (2 - season) 2023 02/12/2022 DEPRESSION SCREENING 04/26/2024 INFLUENZA VACCINE (Season Ended) 2024 02/12/2022, 03/07/2021, 01/12/2020, Additional history exists SCREENING FOR DIABETES 11/28/2026 , 11/29/2023, 11/05/2023, Additional history exists COLON MONITORING 07/05/2031 07/04/2021 COLONOSCOPY - COLON CA SCREENING 07/05/2031 07/04/2021 [...] complete this topic MENINGOCOCCAL (Group B) VACCINE SHARED DECISION-MAKING Aged Out No longer eligible based on patient's age to complete this topic MENINGOCOCCAL GROUPS A/C/Y/W VACCINE Aged Out No longer eligible based on patient's age to complete this topic Medical Devices Implanted Type Area Learning Administrator Device Identifier Shelf Expiration Date Model / Serial / Lot Sys Crd Mntr Rvl Linq Ii Implanted:Qty: 1 on 01/10/2023 by Candie Villalobos MD at [facility] [id number] 04/03/2024 [id number] / [id number] / NA Procedures Procedure Name Priority Date/Time Associated Diagnosis Comments ILR CLINIC CHECK Routine 09/21/2024 6:12 AM CDT Cerebrovascular accident (CVA), unspecified mechanism (HCC) Encounter for loop recorder check ILR CLINIC CHECK Routine 08/17/2024 10:2 0 AM CDT Cerebrovascular accident (CVA), unspecified mechanism (HCC) Encounter for loop recorder check ILR CLINIC CHECK Routine 07/13/2024 7:49 AM CDT Cerebrovascular accident (CVA), unspecified mechanism Encounter for loop recorder check BASIC METABOLIC PANEL (CALCIUM TOTAL) AM Draw 01/10/2023 4:27 AM CDT from Last 3 Months or Most Recently Relevant to Health Maintenance Results * (ABNORMAL) BASIC METABOLIC PANEL (CALCIUM TOTAL) (01/10/2023 4:27 AM CDT) [facility] Glucose 101 70 - 105 mg/dL 01/10/2023 4:53 AM CDT [facility] Sodium 142 136 - 145 mmol/L 01/10/2023 4:53 AM CDT [facility] Potassium 4.3 3.5 - 5.1 mmol/L 01/10/2023 4:53 AM CDT [facility] Chloride 107 98 - 107 mmol/L 01/10/2023 4:53 AM CDT [facility] CO2 27 22 - 29 mmol/L 01/10/2023 4:53 AM CDT [facility] Calcium 9.6 8.4 - 10.4 mg/dL 01/10/2023 4:53 AM CDT [facility] Anion Gap 8 6 - 16 mmol/L 01/10/2023 4:53 AM CDT [facility] BUN 13 7 - 26 mg/dL 01/10/2023 4:53 AM CDT [facility] Creatinine 0.80 0.57 - 1.11 mg/dL 01/10/2023 4:53 AM CDT [facility] eGFR by CKD-EPI 81(L) >=90 mL/min/1.7 3 m2 01/10/2023 4:53 AM CDT [facility] Blood BLOOD SPECIMEN / Unknown Venipuncture / Unknown 01/10/2023 4:27 AM CDT 01/10/2023 4:32 AM CDT Shahrzad Hoff MD LAB - CHEMISTRY ORDERABLES F inal Result [facility] [address] [place] [address] from Last 3 Months or Most Recently Relevant to Health Maintenance Insurance MEDICARE AET Advance Directives * Full Code (Latest Code Status on File) Date Activated Date Inactivated Comments 01/08/2023 6:40 PM 01/10/2023 1:59 PM Care Teams Snow Shoveler Relationship Specialty Start Date End Date Jose Juan Gonzalez MD [address] [place] [address] PCP - General Internal Medicine 01/10/23
--- OUTSIDE RECORDS SUMMARY | 2024-10-11 07:50 | XMS_ITS | Clinical Summary ---
Author Organization [facility] Address [address] [place] [address] [place] [address] Care Team Providers Care Customer Experience Associate Name Role Phone Jose Juan Gonzalez MD Primary Care Provider [phone] Allergies No known active allergies Medications Eliquis [...] mg total) by mouth daily 3 Active zolpidem (AMBIEN) 10 mg tablet Take [...] Encounters Date Type Department Care Team Description 08/14/2024 8:00 AM CDT Office Visit [facility] Infectious Diseases [address] [place] [phone] Maria C Roper NP Cerebrovascular accident (CVA), unspecified mechanism (HCC) (Primary Dx); COVID-19 jorge l marin manifesting chronic fatigue; Disrupted sleep-wake cycle; Weight gain; Nutritional counseling; Vaccine counseling; History of depression from Last 3 Months Social History Tobacco [...] Sign Reading Time Taken Comments Blood Pressure 118/76 08/14/2024 7:57 AM CDT Pulse 65 08/14/2024 7:57 AM CDT Temperature 36.9 C (98.4 F) 08/14/2024 7:57 AM CDT Respiratory Rate - - Oxygen Saturation 97% 08/14/2024 7:57 AM CDT Inhaled Oxygen Concentration - - Weight 87.1 kg (192 lb) 08/14/2024 7:57 AM CDT Height 160 cm (5' 2.99) 08/14/2024 7:57 AM CDT Body Mass Index 34.02 08/14/2024 7:57 AM CDT Plan of Treatment Health Maintenance Due Date Last Done Comments Breast Cancer Screening-Mammogram 1955 Colon Cancer Screening-Colonoscopy 1956 Depression Screening 1956 Hepatitis C Screening 1956 Osteoporosis Screening-Bone Density Scan 1956 Hepatitis B Screening 1974 Well Visit 65+ 2021 Covid-19 Vaccine ( - 2023-2 5 season) 2023 02/12/2022, 01/15/2021, 05/30/2020, Additional history exists Fall Risk Assessment 04/09/2024 04/09/2023 Influenza Vaccine (Season Ended) 2024 02/12/2022, 03/07/2021, 01/12/2020, Additional history exists DTaP/Tdap/Td Vaccine (2 - Td or Tdap) 07/07/2032 07/07/2022 Zoster Vaccine Completed 12/07/2018, 08/11/2017 Pneumococcal vaccine 65+ Completed 07/07/2022, 07/25 Insurance MEDICARE [employer] SENIOR SUPPLEMENT Care Teams Customer Experience Associate Relationship Specialty Start Date End Date Jose Juan Gonzalez MD [address] [facility] [place], [place] [id number] PCP - General Internal Medicine 01/19/23 Valerie Garcia, [facility] [address] [facility] [address] Automatic Dispenser Mechanic Infectious Diseases 02/01/23
--- OUTSIDE RECORDS SUMMARY | 2024-10-11 07:50 | XMS_ITS | Clinical Summary ---
Author Organization [facility] Address [address] [place] [address] Care Team Providers Care Institutional Commodity Analyst Name Role Phone Sharlene Bustamante MD Primary [...] Comments Blood Pressure 104/66 07/04/2021 8:40 AM GARNETT FEEDER Pulse 53 07/04/2021 8:40 AM GARNETT FEEDER Temperature 36.2 C (97.2 F) 07/04/2021 6:57 AM GARNETT FEEDER Respiratory Rate 11 07/04/2021 8:40 AM GARNETT FEEDER Oxygen Saturation 96% 07/04/2021 8:40 AM GARNETT FEEDER Inhaled Oxygen Concentration - - Weight 74.8 kg (165 lb) 07/04/2021 6:57 AM GARNETT FEEDER Height 157.5 cm (5' 2) 07/04/2021 6:57 AM GARNETT FEEDER Body Mass Index 30.18 07/04/2021 6:57 AM GARNETT FEEDER Plan of Treatment Health Maintenance Due Date Last Done Comments Hepatitis C 1974 DTaP, Tdap and Td Vaccines (1 - Tdap) 10/16/1975 Mammogram Screening 1996 Pneumococcal Vaccine: 50+ Years (2 of 2 - PPSV23) 08/10/2017 08/10/2016 AAA SCREENING 2021 Dexa Scan (General) 2021 COVID-19 Vaccine ( season) 2023 02/12/2022, 01/15/2021, 05/30/2020, Additional history exists Colorectal Cancer Screening Colonoscopy [...] Diagnosis Comments COLONOSCOPY Routine 07/04/2021 6:55 AM GARNETT FEEDER from Last 3 Months or Most Recently Relevant to Health Maintenance Results * Colonoscopy (07/04/2021 6:55 AM GARNETT FEEDER) Bebeto De La Torre MD GI PROCEDURE ORDERABLES Final Re sult from Last 3 Months or Most Recently Relevant to Health Maintenance Insurance [facility] Care Teams Institutional Commodity Analyst Relationship Specialty Start Date End Date Sharlene Bustamante MD [facility] [place] [address] [place] [address] PCP - General FAMILY PRACTICE 07/04/21
--- OUTSIDE RECORDS SUMMARY | 2024-10-11 07:50 | XMS_ITS | Encounter Summary ---
Author Organization [facility] Address [address] [place] [address] Phone Care Team Providers Care Fiberglass Boat Parts Finisher Name Role Phone Jose Juan Gonzalez MD Primary Care Provider [phone] Encounter Details Date Type Department Care Team (Latest Contact Info) Description 06/04/2023 Transcribe Orders [facility] Laboratory Services [address] [place] [id number] Gabriela Medina, PARAMEDIC INSTRUCTOR, SKILLS INSTRUCTOR [address] [place] [address] Immunity status testing (Primary Dx) [...] Behavioral Health On track( 023 7:19 PM BUSINESS ACCOUNT SPECIALIST) Yes Rossy Bird, AUTO AIR CONDITIONING INSTALLER Note: Goal/Objective: Improve coping with the changes/losses since the stroke. Anticipated Time Frame for Goal Completion: 6 months Goal Reviewed with: patient Readiness to change: Ready to change Department associated with goal: [facility] Steps to achieve goal: [...] documented as of this encounter Care Teams Fiberglass Boat Parts Finisher Relationship Specialty Start Date End Date Jose Juan Gonzalez MD PCP - General Internal Medicine 03/30/23 documented as of this encounter
--- OUTSIDE RECORDS SUMMARY | 2024-10-11 07:50 | XMS_ITS | Referral Summary ---
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 Address: [address] [address] [place] [address] AET SENIOR SUPPLEMENT Care Teams Lens Fabricating Machine Tender Relationship Specialty Start Date End Date Jose Juan Gonzalez MD [address] [facility] [place], [place] [id number] PCP - General Internal Medicine 01/19/23 Valerie Garcia, [facility] [address] [facility] [address] Media Sales Executive Infectious Diseases 02/01/23
--- OUTSIDE RECORDS SUMMARY | 2024-10-11 07:50 | XMS_ITS | Encounter Summary ---
Author Organization [facility] Address [facility] [place] [address] Care Team Providers Care Marketing Automation Specialist Name Role Phone Sharlene Bustamante MD Primary Care P rovider Encounter Details Date Type Department Care Team (Late st Contact Info) Description 08/18/2022 Abstract [facility] [address] Michelle Owens MA Social History Tobacco Use [...] Final Result * LIPID PANEL (07/07/2022) Pathologist [facility] CHOLESTEROL 242 TRIGLYCERIDES 248 HDL 64 LDL (CALCULATED) 128 Narrative Resulting Agency Comment us Default History Genericprovider LABORATORY Final Result * HEMOGLOBIN, GLYCOSYLATED (07/07/2022) Pathologist [facility] HGB A1C 5.7 % Narrative Resulting Agency Comment us Default History Genericprovider LABORATORY Final Result * THYROID STIM HORMONE, TSH (07/07/2022) Pathologist [facility] TSH 2.11 Narrative Resulting Agency Comment us Default History Genericprovider LABORATORY Final Result * MAGNESIUM (07/07/2022) Pathologist [facility] MAGNESIUM 1.9 Narrative Resulting Agency Comment us Default History Genericprovider LABORATORY Final Result documented in this encounter Visit Diagnoses Not on filedocumented in this encounter Care Teams Marketing Automation Specialist Relationship Specialty Start Date End Date Sharlene Bustamante MD [address] [place] [address] PCP - General FAMILY PRACTICE 07/04/21 documented as of this encounter
--- OUTSIDE RECORDS SUMMARY | 2024-10-11 07:50 | XMS_ITS | Encounter Summary ---
Author Organization [facility] Address [address] [facility] [place] [address] Phone Care Team Providers Care Backend Java Developer Name Role Phone Jose Juan Gonzalez MD Primary Care Provider [phone] Encounter Details Date Type Department Care Team (Latest Contact Info) Description 11/29/2023 Transcribe Orders [facility] Laboratory Services [address] [place] [id number] Jose Juan Gonzalez MD [address] [place] [phone] Nausea and vomiting, unspecified vomiting type (Primary Dx); Other fatigue Social History Tobacco Use Types Packs/Day Years Used Date Smoking Tobacco: Never Smokeless Tobacco: Never Alcohol Use Standard Drinks/Week Comments Yes 0 (1 standard drink = 0.6 oz pur e alcohol) wine/very occassional [facility] Utilities Answer Date Recorded In the past 12 months has [employer] electric, gas, oil, or water company threatened [...] declined 11/04/2023 How often do you attend buddhist or denominational serv ices? Patient declined 11/04/2023 Do you belong to any clubs o r organizations such as buddhist groups, unions, fraternal or athletic groups, or [...] medical care, and heating? Somewhat hard 11/04/2023 [facility] - Occupational Stress Questionnaire Answer Date [...] any time in the past 12 m [facility], were you homeless or living in a jail (including now)? No 11/04/2023 Sexually Active Control [...] Behavioral Health On track( 023 7:19 PM KILN MECHANIC) Yes Rossy Bird, HEALTH AND NUTRITION SPECIALIST Note: Goal/Objective: Improve coping with the changes/losses since the stroke. Anticipated Time Frame for Goal Completion: 6 months Goal Reviewed with: patient Readiness to change: Ready to change Department associated with goal: [facility] Steps to achieve goal: [...] fatigue documented in this encounter Care Teams Backend Java Developer Relationship Specialty Start Date End Date Jose Juan Gonzalez MD PCP - General Internal Medicine 03/30/23 documented as of this encounter
--- OUTSIDE RECORDS SUMMARY | 2024-10-11 07:50 | XMS_ITS | Patient Health Record ---
Author Organization [facility] Address [address] [place] [address] Care Team Providers Care Central Lab Technician Name Role Phone Haven Menard Unavailable [phone] Allergies Allergen (clinical drug ingredient) Drug/Non Drug [...] Active chondroitin-glucosamine 03/14/2014 Active Pravachol 03/14/2014 Active [place] 03/14/2014 Active Benicar 03/14/2014 Active Vitamin D 03/14/2014 Active Promethazine HCl 25 MG 1 tablet as neede d Orally three times daily PRN for 90 days 01/17/2024 Active prevastatin Active Biotin 03/14/2014 Active Losartan Potassium-HCTZ Active Encounters Encounter Location Date Provider Diagnosis [facility] [address] [place] [address] 01/17/2024 Haven Menard Plan Of Treatment No Information Medical (General) History Surgical History Surgery Date(Month/Year) left ovary removal x2 hysterectomy bleph x2 breast aug breast surgery- mastopexy abdominoplasty Hospitalization History Reason Date(Month/Year)
--- OUTSIDE RECORDS SUMMARY | 2024-10-11 07:50 | XMS_ITS | Encounter Summary ---
Author Organization [facility] Address [address] [facility] [place] [address] Phone Care Team Providers Care Therapeutic Recreation Leader Name Role Phone Jose Juan Gonzalez MD Primary Care Provider [phone] Encounter Details Date Type Department Care Team (Latest Contact Info) Description 11/30/2023 Transcribe Orders [facility] Laboratory Services [address] [place] [id number] Jose Juan Gonzalez MD [address] [place] [address] Other fatigue (Primary Dx) Social History Tobacco Use Types Packs/Day Years Used Date Smoking Tobacco: Never Smokeless Tobacco: Never Alcohol Use Standard Drinks/Week Comments Yes 0 (1 standard drink = 0.6 oz pur e alcohol) wine/very occassional [facility] Utilities Answer Date Recorded In the past 12 months has [employer], gas, oil, or water [employer] threatened to shut off services in your home? No 11/04/2023 Social Connection and Isolation Panel Answer Date Recorded In a typical week, how many times do you talk on the phone with family, friends, or neighbors? Patient declined 11/04/2023 How often do you get togethe r with friends or relatives? Patient declined 11/04/2023 How often do you attend faith or temple serv ices? Patient declined 11/04/2023 Do you belong to any clubs o r organizations such as faith groups, unions, fraternal or athletic groups, or [...] medical care, and heating? Somewhat hard 11/04/2023 [facility] - Occupational Stress Questionnaire Answer Date Recorded [...] any time in the past 12 m [facility], were you homeless or living in a snf (including now)? 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 Anticipated Time Frame for Goal Completion: 6 months Goal Reviewed with: patient Readiness to change: Ready to change Department associated with goal: [facility] Steps to achieve [...] 8.7 mcg/dL 12/01/2023 6:3 7 PM CDT [facility] Blood Venipuncture / Unknown 12/01/2023 4:57 PM CDT 12/01/2023 5:57 PM CDT Narrative [facility] - 12/01/2023 6:37 PM CDT AM: 4 TO 19 mcg/dL PM: Approx. Half of AM Value us Jose Juan Gonzalez MD CHEMISTRY ORDERABLES Final Res ult Performing Organization Address City/[facility] Co de Phone Number [facility] [place] [address] * CORTISOL (12/01/2023 6:20 AM CDT) CORTISOL 13.1 mcg/dL 12/01/2023 9:1 3 AM CDT [facility] Blood Venipuncture / Unknown 12/01/2023 6:20 AM CDT 12/01/2023 8:13 AM CDT Narrative [facility] - 12/01/2023 9:13 AM CDT AM: 4 TO 19 mcg/dL PM: Approx. Half of AM Value us Jose Juan Gonzalez MD CHEMISTRY ORDERABLES Final Res ult Performing Organization Address [facility] de Phone Number [facility] [place] [address] documented in this encounter Visit Diagnoses Diagnosis Other fatigue- Primary documented in this encounter Care Teams Therapeutic Recreation Leader Relationship Specialty Start Date End Date Jose Juan Gonzalez MD PCP - General Internal Medicine 03/30/23 documented as of this encounter
[2024-10-11 08:54] LABS: Basophils Percent Auto 0.2 % (0.2-1.2); Eosinophils Percent Auto 0.3 % (0-4.4); Hematocrit 39.6 % (37.0-47.0); Immature Granulocyte Absolute 0.01 K/mm3 (0.00-0.031); Immature Granulocyte Percent A 0.2 % (0-0.5); Lymphocytes Absolute Auto 1.66 K/mm3 (0.9-3.2); Lymphocytes Percent Auto 25.7 % (18.3-44.2); Mean Corpuscular HGB Conc 32.8 g/dl (32-36); Mean Corpuscular Hemoglobin 29.5 pg (26-34); Mean Corpuscular Volume 89.8 fl (80-100); Mean Platelet Volume 10.2 fl (7.4-10.4); Monocytes Absolute Auto 0.6 K/mm3 (0.1-0.6); Monocytes Percent Auto 8.5 % (2.6-8.5); Neutrophils Absolute Auto 4.2 K/mm3 (1.3-6.7); Neutrophils Percent Auto 65.1 % (45.5-73.1); Platelet Count Result 341 k/mm3 (150-375); Red Blood Count 4.41 M/mm3 (4.2-5.4); Red Cell Distribution Width 13.2 % (11.5-14.5); White Blood Count 6.5 K/mm3 (4.5-10.0)
[2024-10-11 09:27] LABS: Hemoglobin A1C 5.6 % (<5.7)
[2024-10-11 09:33] LABS: Alanine Aminotransferase 34 U/L (6-35); Albumin Level 4.5 g/dL (3.5-5.1); Alkaline Phosphatase 73 U/L (38-126); Anion Gap 10 mmol/L (4-12); Aspartate Amino Transferase 39 U/L (14-36); Bilirubin,Total 0.4 mg/dL (0.2-1.3); Blood Urea Nitrogen 17 mg/dL (7-17); Calcium 10.2 mg/dL (8.4-10.2); Carbon Dioxide 25 mmol/L (22-30); Chloride 103 mmol/L (98-107); Cholesterol 179 mg/dL (0-200); Estimated Glomerular Filt Rate 59; Glucose 110 mg/dL (65-110); HDL Direct 49 mg/dL; Sodium 138 mmol/L (137-145); Total Protein 7.4 g/dL (6.3-8.2); Triglycerides 168 mg/dL (<150)
[2024-10-11 09:45] LABS: LDL Cholesterol Direct 77 mg/dL
[2024-10-11 09:50] LABS: Add Urine Microscopic? YES; Appearance Urine Clear (Clear); Bacteria Urine Rare /hpf; Bilirubin Urine Negative (Negative); Blood Urine Negative (Negative); Color Urine Dark Yellow (Yellow); Glucose Urine UA Negative (Negative); Ketones Urine Trace mg/dL (Negative); Leukocyte Esterase Ur 1+ LEU/UL (Negative); Need Manual Microscopic Reviewed; Nitrate Urine Negative (Negative); Protein Urine Negative (Negative); RBC Urine 0-2 /hpf (0-2); Specific Grav Ur 1.026 (1.001-1.035); Squamous Epithelial Cell Urine Few /hpf (Few); Urobilinogen Urine 0.2 mg/dL (<2.0)
[2024-10-11 09:57] LABS: Free T4 Free Thyroxine 1.15 ng/dL (0.78-2.19)
[2024-10-11 11:24] LABS: Folic Acid > 20.0 ng/mL (2.76->20); Vitamin B12 > 1000.0 pg/mL (239-931)
[2024-10-11 14:31] LABS: Vitamin D 25 Hydroxy 58.8 ng/mL
== END 2024-10-11 07:45 | disposition home or self-care (01) ==
LOC: ANHLAB 07:47
PROVIDERS: PCP Internal Medicine; Visit Provider Internal Medicine
DX: E55.9 Vitamin D deficiency, unspecified (principal); I10 Essential (primary) hypertension; Z79.899 Other long term (current) drug therapy; Z13.29 Encounter for screening for other suspected endocrine disorder; E53.8 Deficiency of other specified B group vitamins; Z13.1 Encounter for screening for diabetes mellitus; E78.5 Hyperlipidemia, unspecified
CPT/HCPCS: 36415; 80053; 80061; 81001; 82306; 82607; 82746; 83036; 84439; 84443; 85025; 87086

== ENCOUNTER 2025-03-14 08:44 | Outpatient (CLI) | payer MEDICARE, SELFPAY ==
[2025-03-14 10:27] LABS: Anion Gap 9 mmol/L (4-12); Blood Urea Nitrogen 17 mg/dL (7-17); Calcium 9.9 mg/dL (8.4-10.2); Carbon Dioxide 25 mmol/L (22-30); Chloride 102 mmol/L (98-107); Cholesterol 197 mg/dL (0-200); Estimated Glomerular Filt Rate > 60; Glucose 102 mg/dL (65-110); HDL Direct 51 mg/dL; Potassium 4.4 mmol/L (3.4-5.0); Sodium 136 mmol/L (137-145); Triglycerides 156 mg/dL (<150)
[2025-03-14 10:28] LABS: Free T4 Free Thyroxine 1.01 ng/dL (0.78-2.19)
[2025-03-14 10:29] LABS: Hemoglobin A1C 5.4 % (<5.7)
--- OUTSIDE RECORDS SUMMARY | 2025-03-14 10:35 | XMS_ITS | Clinical Summary ---
Author Organization [facility] [address] [facility] Address [address] [place] [address] [place] [address] Care Team Providers Care Dietetic Technician Registered Name Role Phone Jose Juan Gonzalez MD Primary Care Provider [phone] Allergies No known active allergies Medications Eliquis [...] B Screening 1973 Well Visit 65+ 2021 Fall Risk Assessment 04/09/2024 04/09/2023 Covid-19 Vaccine (2024-2 6 season) 2024 02/12/2022, 01/15/2021, 05/30/2020, Additional history exists Influenza Vaccine (#1) 2024 , 03/07/2021, 01/12/2020, Additional history exists DTaP/Tdap/Td Vaccine (2 - Td or Tdap) 07/07/2032 07/07/2022 Zoster Vaccine Completed 12/07/2018, 08/11/2017 Pneumococcal vaccine 65+ Completed 07/07/2022, 07/25 Insurance MEDICARE [employer] SENIOR SUPPLEMENT Care Teams Dietetic Technician Registered Relationship Specialty Start Date End Date Jose Juan Gonzalez MD PCP - General Internal Medicine 01/19/23 Valerie Garcia, [facility] [address] [facility] [address] Chief Communications Officer Infectious Diseases 02/01/23
[2025-03-14 10:59] LABS: Thyroid Stimulating Hormone 1.570 uIU/mL (0.465-4.680)
== END 2025-03-14 08:45 | disposition home or self-care (01) ==
PROVIDERS: PCP Internal Medicine; Visit Provider Internal Medicine
DX: Z13.1 Encounter for screening for diabetes mellitus (principal); Z79.899 Other long term (current) drug therapy; I10 Essential (primary) hypertension; E78.5 Hyperlipidemia, unspecified; Z13.29 Encounter for screening for other suspected endocrine disorder
CPT/HCPCS: 36415; 80048; 80061; 83036; 84439; 84443